=== PATIENT | female | born 1945 | race Caucasian/White ===

== ENCOUNTER 2020-09-12 11:16 | Outpatient (REF) | payer MEDICARE, SELFPAY ==
[2020-09-12 13:27] LABS: Folate 18.4 ng/mL (> or = 4.0)
== END 2020-09-12 11:17 | disposition home or self-care (01) ==
LOC: HO.LNP 11:16
PROVIDERS: PCP Internal Medicine; Visit Provider Internal Medicine
DX: E53.8 Deficiency of other specified B group vitamins (principal)
CPT/HCPCS: 82746

== ENCOUNTER 2020-11-09 10:01 | Outpatient (REF) | payer MEDICARE, SELFPAY ==
[2020-11-09 11:43] LABS: Folate > 20.0 ng/mL (> or = 4.0); Vitamin B12 773 pg/mL (200-900)
== END 2020-11-09 10:02 | disposition home or self-care (01) ==
LOC: HO.LNP 10:01
PROVIDERS: Visit Provider Internal Medicine
DX: G25.0 Essential tremor (principal); E53.8 Deficiency of other specified B group vitamins
CPT/HCPCS: 82607; 82746; 83735

== ENCOUNTER 2021-01-04 13:24 | Outpatient (REF) | payer MEDICARE, SELFPAY ==
--- NOTE | ~2021-01-04 | MM_ITS ---
EXAMINATION: BONE DENSITOMETRY CLINICAL INDICATION: Screening for osteoporosis. COMPARISON: Baseline BD dated 01/14/2019. TECHNIQUE: Using a [employer]box DXA System (software version: 13.1) manufactured by [employer], dual-energy x-ray absorptiometry was performed of the lumbar spine and left hip. The images are of good technical quality. Summary results are attached. FINDINGS: AP SPINE L1-L4: Current: BMD 1.033 g/cm2, Z-score 0.2, T-score -1.2, osteopenia, 11.7% decrease from baseline (<5% change is not significant). Baseline: BMD 1.170 g/cm2. LEFT FEMUR, NECK: Current: BMD 0.775 g/cm2, Z-score -0.2, T-score -1.9, osteopenia. Baseline: BMD 0.902 g/cm2. LEFT FEMUR, TOTAL: Current: BMD 0.874 g/cm2, Z-score 0.4, T-score -1.1, osteopenia, 12.5% decrease from baseline (<5% change is not significant). Baseline: BMD 0.999 g/cm2. IDENTIFIED RISK FACTORS: Early menopause, secondary osteoporosis, height loss, low calcium intake, alcoholism, thiazide, hysterectomy. HISTORY OF FRACTURE: None listed. MEDICATIONS: Vitamin D. MM/XR DEXA axial skeleton IMPRESSION: 1. DIAGNOSIS: Osteopenia based on the lowest T-score value of -1.9 in the femoral neck applying World Health Organization criteria. 2. 10-YEAR FRACTURE RISK PREDICTION, FRAX: Major osteoporotic fracture (clinical spine, forearm, hip or shoulder) 22.8%. Hip fracture 6.1%. 3. Treatment Recommendations: NOF guidelines recommend consideration for treatment in postmenopausal women and men age 50 and older presenting with the following: -A hip or vertebral (clinical or morphometric) fracture. -T-score less than or equal to -2.5 at the femoral neck or spine after appropriate evaluation to exclude secondary causes. -Low bone mass at the hip or spine and a 10-year fracture probability by FRAX of greater than or equal to 3% for hip fracture or greater than or equal to 20% for major osteoporotic fracture based on the [place] adapted WHO algorithm. 4. Other Recommendations: All treatment decisions require clinical judgment and consideration of individual patient factors, including patient preferences, comorbidities, previous drug use, risk factors not captured in the FRAX model (e.g. frailty, falls, vitamin D deficiency, increased bone turnover, interval significant decline in bone density) and possible under or overestimation of fracture risk by FRAX. Additional medical evaluation for secondary cause of low bone mineral density may be appropriate. FUTURE SCAN RECOMMENDATION: People with diagnosed cases of osteoporosis or at high risk for fracture should have regular bone mineral density tests. For patients eligible for Medicare, routine testing is allowed once every 2 years. The testing frequency can be increased to one year for patients who have rapidly progressing disease, those who are receiving or discontinuing medical therapy to restore bone mass, or have additional risk factors.
== END 2021-01-04 13:25 | disposition home or self-care (01) ==
LOC: HO.MAMMO 13:24
PROVIDERS: Visit Provider Internal Medicine
DX: Z13.820 Encounter for screening for osteoporosis (principal); Z78.0 Asymptomatic menopausal state; M85.88 Other specified disorders of bone density and structure, other site; M85.58 Aneurysmal bone cyst, other site; F10.20 Alcohol dependence, uncomplicated; Z90.710 Acquired absence of both cervix and uterus; Z79.899 Other long term (current) drug therapy
CPT/HCPCS: 77080

== ENCOUNTER 2021-02-09 10:26 | Outpatient (REF) | payer MEDICARE, SELFPAY ==
[2021-02-09 11:47] LABS: Folate > 20.0 ng/mL (> or = 4.0); Vitamin B12 1214 pg/mL (200-900)
== END 2021-02-09 10:27 | disposition home or self-care (01) ==
LOC: HO.LNP 10:26
PROVIDERS: Visit Provider Internal Medicine
DX: E53.8 Deficiency of other specified B group vitamins (principal)
CPT/HCPCS: 82607; 82746

== ENCOUNTER 2021-10-23 11:05 | Outpatient (REF) | payer MEDICARE, SELFPAY ==
[2021-10-23 11:08] LABS: MANUAL DIFF FLAG NO
[2021-10-23 11:20] LABS: Appearance Urine CLEAR; Color Urine YELLOW; Glucose Urine UA NEG (NEG); Leukocyte Esterase Urine NEG (NEG); Nitrite Urine NEG (NEG); PH 7.5 (5.0-8.0); Urine Blood NEG (NEG); Urine Ketones NEG (NEG); Urine Protein NEG (NEG-TRACE)
[2021-10-23 11:23] LABS: Basophils Absolute Auto 0.1 X10*3/uL (0.0-0.2); Basophils Percent Auto 1.6 % (0-2); Eosinophils Absolute Auto 0.2 X10*3/uL (0.0-0.4); Eosinophils Percent Auto 6.1 % (0-4); Hematocrit 38.9 % (37.0-47.0); Hemoglobin 13.1 g/dl (12.0-16.0); Lymphocytes Absolute Auto 1.2 X10*3/uL (1.2-4.9); Lymphocytes Percent Auto 32.1 % (20-40); Mean Corpuscular HGB Conc 33.7 g/dl (31.0-35.0); Mean Corpuscular Hemoglobin 32.7 pg (27.0-33.0); Mean Platelet Volume 9.4 fL (9.4-12.3); Monocytes Absolute Auto 0.3 X10*3/uL (0.1-1.2); Monocytes Percent Auto 8.4 % (2-11); Neutrophils Percent Auto 51.8 % (45-73); Platelet Count 222 X10*3/uL (160-400); Red Blood Count 4.01 X10*6/uL (4.20-5.50); White Blood Count 3.8 X10*3/uL (4.8-10.8)
[2021-10-23 11:34] LABS: Alanine Aminotransferase 15 U/L (0-31); Albumin Level 4.3 g/dL (3.5-5.0); Alkaline Phosphatase 93 U/L (39-117); Anion Gap 12 (12-20); Aspartate Amino Transferase 20 U/L (5-31); Bilirubin Total 0.9 mg/dL (0.0-1.0); Blood Urea Nitrogen 12 mg/dL (9-16); Calcium 9.3 mg/dL (8.4-10.2); Carbon Dioxide 31 mmol/L (22-29); Chloride 98 mmol/L (96-108); Cholesterol 185 mg/dL; Estimated Glomerular Filt Rate > 60; Glucose Fasting 100 mg/dL (60-99); HDL Cholesterol 74 mg/dL; LDL Cholesterol Calculated 103 mg/dl; Potassium 4.3 mmol/L (3.3-5.1); Sodium 137 mmol/L (135-145); Total Protein 6.7 g/dL (6.5-8.0); Triglycerides 40 mg/dL
[2021-10-23 11:57] LABS: RBC Urine 0-2 /HPF (0); Squamous Epithelial Cell Urine TRACE /LPF; WBC Urine 0 /HPF (0-4)
== END 2021-10-23 11:06 | disposition home or self-care (01) ==
LOC: HO.LNP 11:05
PROVIDERS: PCP Internal Medicine; Visit Provider Internal Medicine
DX: Z00.00 Encounter for general adult medical examination without abnormal findings (principal); I10 Essential (primary) hypertension; E04.1 Nontoxic single thyroid nodule
CPT/HCPCS: 80053; 80061; 81001; 84443; 85025

== ENCOUNTER 2021-11-01 15:42 | Outpatient (REF) | payer MEDICARE, SELFPAY ==
[2021-11-01 15:48] LABS: MANUAL DIFF FLAG NO
[2021-11-01 15:51] LABS: Basophils Absolute Auto 0.1 X10*3/uL (0.0-0.2); Basophils Percent Auto 0.9 % (0-2); Eosinophils Absolute Auto 0.2 X10*3/uL (0.0-0.4); Eosinophils Percent Auto 3.8 % (0-4); Hematocrit 39.3 % (37.0-47.0); Hemoglobin 12.8 g/dl (12.0-16.0); Imm Gran Abs Auto 0.01 X10*3/uL (0.00-0.03); Imm Gran Pct Auto 0.2 % (0.0-0.4); Lymphocytes Absolute Auto 1.7 X10*3/uL (1.2-4.9); Lymphocytes Percent Auto 30.2 % (20-40); Mean Corpuscular HGB Conc 32.6 g/dl (31.0-35.0); Mean Corpuscular Hemoglobin 31.5 pg (27.0-33.0); Mean Corpuscular Volume 96.8 fL (80.0-98.0); Mean Platelet Volume 9.7 fL (9.4-12.3); Monocytes Absolute Auto 0.4 X10*3/uL (0.1-1.2); Monocytes Percent Auto 7.5 % (2-11); Neutrophils Absolute Auto 3.1 x10*3/uL (2.0-8.3); Neutrophils Percent Auto 57.4 % (45-73); Platelet Count 223 X10*3/uL (160-400); Red Blood Count 4.06 X10*6/uL (4.20-5.50); White Blood Count 5.5 X10*3/uL (4.8-10.8)
[2021-11-01 16:44] LABS: Folate > 20.0 ng/mL (> or = 4.0); Vitamin B12 1442 pg/mL (200-900)
== END 2021-11-01 15:43 | disposition home or self-care (01) ==
LOC: HO.LNP 15:42
PROVIDERS: Visit Provider Internal Medicine
DX: D70.9 Neutropenia, unspecified (principal)
CPT/HCPCS: 82607; 82746; 85025

== ENCOUNTER → 2022-02-26 12:55 | Outpatient (BNVA) | payer MEDICARE, SELFPAY | PROVIDERS: PCP Internal Medicine; Visit Provider Nurse Practitioner Family | DX: R25.1 Tremor, unspecified (principal); R26.9 Unspecified abnormalities of gait and mobility; W19.XXXA Unspecified fall, initial encounter | CPT/HCPCS: 99202 ==

== ENCOUNTER → 2022-09-24 10:58 | Outpatient (BNVA) | payer MEDICARE, SELFPAY | PROVIDERS: PCP Internal Medicine; Visit Provider Psychiatry & Neurology Neurology | DX: G20 Parkinson's disease (principal); R26.9 Unspecified abnormalities of gait and mobility; Z91.81 History of falling | CPT/HCPCS: 99212 ==

== ENCOUNTER 2022-10-29 14:42 | Outpatient (REF) | payer MEDICARE, SELFPAY ==
[2022-10-29 14:45] LABS: MANUAL DIFF FLAG NO
[2022-10-29 15:13] LABS: Appearance Urine Clear; Color Urine Yellow; Glucose Urine UA Negative (Negative); Leukocyte Esterase Urine Negative (Negative); Nitrite Urine Negative (Negative); Urine Blood Negative (Negative); Urine Ketones Negative (Negative); Urine Protein Negative (Neg-Trace)
[2022-10-29 15:17] LABS: Bacteria Urine None Seen (None Seen); Hyaline Casts Urine 0-2 /LPF (0-2); RBC Urine 0-2 /HPF (0-2); Squamous Epithelial Cell Urine 0-2 /HPF (0-2); WBC Urine 0-5 /HPF (0-5)
[2022-10-29 15:20] LABS: Basophils Percent Auto 0.8 % (0-2); Eosinophils Absolute Auto 0.2 X10*3/uL (0.0-0.4); Eosinophils Percent Auto 3.1 % (0-4); Hematocrit 39.2 % (37.0-47.0); Hemoglobin 13.2 g/dl (12.0-16.0); Imm Gran Abs Auto 0.01 X10*3/uL (0.00-0.03); Imm Gran Pct Auto 0.2 % (0.0-0.4); Lymphocytes Absolute Auto 1.6 X10*3/uL (1.2-4.9); Lymphocytes Percent Auto 32.9 % (20-40); Mean Corpuscular HGB Conc 33.7 g/dl (31.0-35.0); Mean Corpuscular Hemoglobin 32.8 pg (27.0-33.0); Mean Corpuscular Volume 97.5 fL (80.0-98.0); Mean Platelet Volume 9.6 fL (9.4-12.3); Monocytes Absolute Auto 0.4 X10*3/uL (0.1-1.2); Monocytes Percent Auto 7.7 % (2-11); Neutrophils Absolute Auto 2.7 x10*3/uL (2.0-8.3); Neutrophils Percent Auto 55.3 % (45-73); Platelet Count 246 X10*3/uL (160-400); Red Blood Count 4.02 X10*6/uL (4.20-5.50); Red Cell Distribution Width 11.9 % (11.0-16.0); White Blood Count 4.8 X10*3/uL (4.8-10.8)
[2022-10-29 15:55] LABS: Alanine Aminotransferase 26 U/L (0-31); Albumin Level 4.1 g/dL (3.5-5.0); Alkaline Phosphatase 92 U/L (39-117); Anion Gap 13 (12-20); Aspartate Amino Transferase 25 U/L (5-31); Blood Urea Nitrogen 14 mg/dL (9-16); Calcium 9.3 mg/dL (8.4-10.2); Carbon Dioxide 31 mmol/L (22-29); Chloride 93 mmol/L (96-108); Cholesterol 179 mg/dL; Estimated Glomerular Filt Rate > 60; Glucose Fasting 97 mg/dL (60-99); HDL Cholesterol 75 mg/dL; LDL Cholesterol Calculated 94 mg/dl; Potassium 4.1 mmol/L (3.3-5.1); Sodium 133 mmol/L (135-145); Total Protein 6.5 g/dL (6.5-8.0); Triglycerides 52 mg/dL
[2022-10-29 16:13] LABS: PSA,Total (Free>4and<10) < 0.10 ng/mL
== END 2022-10-29 14:43 | disposition home or self-care (01) ==
LOC: HO.LNP 14:42
PROVIDERS: Visit Provider Internal Medicine
DX: Z00.00 Encounter for general adult medical examination without abnormal findings (principal); I10 Essential (primary) hypertension; D70.9 Neutropenia, unspecified
CPT/HCPCS: 80053; 80061; 81001; 84153; 85025

== ENCOUNTER 2023-10-06 10:27 | Outpatient (AMB) | payer MEDICARE, SELFPAY ==
--- NOTE | 2023-10-06 10:31 | MHC.OFFVIS ---
Vital Signs 10/06/23 10:33 Height 5 ft 4.5 in Weight 133 lb 4 oz BMI 22.5 BP 148/80 H Blood Pressure Location Rt brachial Position Sitting Respiration 16 Pulse 64 Pulse Source Palpation Intake Visit Reasons: 3m follow up tremor Intake Note: Pt presents for a one year follow up for Parkinson's. 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 No falls sin elast visit. Pt reports that she developed that she has had BUE for some years, very mild such when singing and holding her music. The tremor became more noticeable about 4 yrs, after her passed. She notices a bit of LUE rest tremor, and can also have some shaking in her legs (not sure which leg). She notices the tremor when carrying something, again more so in her LUE. ADL status: Independant Fine-motor skills: Writing and cutting food is ok. Does buttons and zippers ok. Pt reports: Micrographia: No issues Hypophonia: Voice has been hoarser Hyposmia: Never had a good sense of smell Dysphagia: No issues Drooling: Can be during the day or night- not bothersome Orthostatic lightheadedness: No issues Constipation: Sometimes. Does have a remote h/o anal fissures. Tries to take fluids and vegetables. Not using any bowel tx's. Slowness: A little slower- she attributes to age and now living alone Freezing episodes: Never Tremor: as above Stiffness: Some general stiffness Gait changes: A bit slower, can shuffle around the house, may have to pay attention when walking on uneven surfaces such a s a sidewalk Falls: no falls for past 1 year Sleep difficulty: She sleeps ok. Her used to tell her she talked and acted out her dreams in her sleep. Memory impairment: No issues Hallucinations: No Usual exercise: Walks most days. If weather is bad, she will walk in the mall. [facility] Medical History Parkinson's disease without dyskinesia Parkinson's disease Folate deficiency Vitamin B12 deficiency Thyroid nodule GERD (gastroesophageal reflux disease) HTN (hypertension) Neutropenia Surgical History History of tonsillectomy H/O: hysterectomy Family History Mother Pancreatic cancer Father Heart disease Social History Alcohol intake: current Alcohol intake frequency: holidays/special occasions only Patient Tobacco Use Status: Former Tobacco user Physical Exam Vital Signs: Last Vital Signs Pulse 64 10/06/23 10:33 Resp 16 10/06/23 10:33 BP 148/80 H 10/06/23 10:33 BMI result Body Mass Index 22.5 Const General: cooperative and no acute distress Orientation/consciousness: oriented to person, oriented to place and oriented to time Neuro Other: Expression: Milder decreased blink and facial expression Voice: Mild hoarseness Tremor:mild left Ue tremors at rest intermittent Tone: No appreciable tone Dyskinesia: None FFM: Ok Foot taps: Mildly decreased in LLE Finger-nose- BUE intact Gait: Able to stand w/o using arms, right shoulder drooped, decreased arm swing, LUE tremor w/ hand posturing in hand flexion, steps w/ very low floor clearance, multiple steps to turn. Psych: Pleasant affect. General: oriented to person, oriented to place and oriented to time Coordination: [id number] test normal Assessment & Plan Assessment & Plan (1) Parkinson's disease without dyskinesia: Code(s): G20.A1 - Parkinson's disease without dyskinesia, without mention of fluctuations Category: Medical Plan Increase Sinemet 25/100 1 tab tid - discussed about interaction with protein PT for BIG program Orders: Orders PT Evaluation and Treatment Today G20.A1 - Parkinson's disease without dyskinesia, without mention of fluctuations Coding Level of Care Code Est Pt Level 4 (67304) Diagnoses Parkinson's disease without dyskinesia G20.A1
[2023-10-06 10:33] VITALS: BP 148/80; PULSE 64; RESP 16; BMI 22.5
== END 2023-10-06 11:04 | disposition home or self-care (01) ==
PROVIDERS: PCP Internal Medicine; Visit Provider Psychiatry & Neurology Neurology
DX: G20.A1 Parkinson's disease without dyskinesia, without mention of fluctuations (principal)
CPT/HCPCS: 99214

== ENCOUNTER → 2023-10-06 10:27 | Outpatient (BNVA) | payer MEDICARE, SELFPAY | PROVIDERS: Visit Provider Psychiatry & Neurology Neurology | DX: G20.A1 Parkinson's disease without dyskinesia, without mention of fluctuations (principal) | CPT/HCPCS: 99212 ==

== ENCOUNTER 2023-10-31 10:52 | Outpatient (REF) | payer MEDICARE, SELFPAY ==
[2023-10-31 10:54] LABS: MANUAL DIFF FLAG NO
[2023-10-31 11:07] LABS: Basophils Absolute Auto 0.1 X10*3/uL (0.0-0.2); Basophils Percent Auto 1.6 % (0-2); Eosinophils Absolute Auto 0.2 X10*3/uL (0.0-0.4); Eosinophils Percent Auto 3.9 % (0-4); Hematocrit 38.2 % (37.0-47.0); Hemoglobin 13.3 g/dl (12.0-16.0); Imm Gran Abs Auto 0.01 X10*3/uL (0.00-0.03); Imm Gran Pct Auto 0.3 % (0.0-0.4); Lymphocytes Absolute Auto 1.3 X10*3/uL (1.2-4.9); Mean Corpuscular HGB Conc 34.8 g/dl (31.0-35.0); Mean Corpuscular Hemoglobin 33.8 pg (27.0-33.0); Mean Platelet Volume 9.3 fL (9.4-12.3); Monocytes Absolute Auto 0.3 X10*3/uL (0.1-1.2); Monocytes Percent Auto 8.6 % (2-11); Neutrophils Percent Auto 51.6 % (45-73); Platelet Count 218 X10*3/uL (160-400); Red Blood Count 3.94 X10*6/uL (4.20-5.50); Red Cell Distribution Width 11.9 % (11.0-16.0); White Blood Count 3.8 X10*3/uL (4.8-10.8)
[2023-10-31 11:09] LABS: Appearance Urine Clear; Color Urine Yellow; Glucose Urine UA Negative (Negative); Leukocyte Esterase Urine Trace (Negative); Nitrite Urine Negative (Negative); PH 7.5 (5.0-9.0); UMIC TRIGGER UACC YES; Urine Blood Negative (Negative); Urine Ketones Negative (Negative); Urine Protein Negative (Neg-Trace)
[2023-10-31 11:24] LABS: Bacteria Urine None Seen (None Seen); Hyaline Casts Urine 0-2 /LPF (0-2); RBC Urine 0-2 /HPF (0-2); Squamous Epithelial Cell Urine 0-2 /HPF (0-2); WBC Urine 0-5 /HPF (0-5)
[2023-10-31 11:32] LABS: Alanine Aminotransferase 17 U/L (0-31); Albumin Level 4.2 g/dL (3.5-5.0); Alkaline Phosphatase 77 U/L (39-117); Anion Gap 10 (12-20); Aspartate Amino Transferase 17 U/L (5-31); Bilirubin Total 0.8 mg/dL (0.0-1.0); Blood Urea Nitrogen 12 mg/dL (9-16); Calcium 9.5 mg/dL (8.4-10.2); Carbon Dioxide 32 mmol/L (22-29); Chloride 97 mmol/L (96-108); Cholesterol 173 mg/dL (<200); Estimated Glomerular Filt Rate > 60; Glucose Fasting 92 mg/dL (60-99); HDL Cholesterol 76 mg/dL (>40); LDL Cholesterol Calculated 90 mg/dL (<100); Potassium 4.1 mmol/L (3.3-5.1); Sodium 135 mmol/L (135-145); Total Protein 6.7 g/dL (6.5-8.0); Triglycerides 38 mg/dL (<150)
== END 2023-10-31 10:53 | disposition home or self-care (01) ==
LOC: HO.LNP 10:52
PROVIDERS: Visit Provider Internal Medicine
DX: Z00.00 Encounter for general adult medical examination without abnormal findings (principal); I10 Essential (primary) hypertension; D70.9 Neutropenia, unspecified
CPT/HCPCS: 80053; 80061; 81001; 85025

== ENCOUNTER 2023-11-18 09:41 | Outpatient (REF) | payer MEDICARE, SELFPAY ==
--- NOTE | ~2023-11-18 | US_ITS ---
EXAMINATION: US ABDOMEN COMPLETE CLINICAL INFORMATION: Abdominal mass. COMPARISON: None available. TECHNIQUE: Real-time imaging of the abdominal viscera. Limited visualization due to bowel gas. FINDINGS: PANCREAS: Limited visualization of pancreatic tail and head. Imaged portion of pancreatic body is unremarkable. ABDOMINAL AORTA: Atherosclerosis. Limited visualization. Dedicated imaging of the abdominal aorta should be considered for further evaluation. INFERIOR VENA CAVA: Visualized portions are normal. LIVER: Increased hepatic parenchymal heterogeneity and echogenicity could be associated with hepatocellular disease/hepatic steatosis and substantially limits visualization. Correlation with liver function tests and clinical exam recommended to determine further management. GALLBLADDER: No gallstones. No gallbladder wall thickening. COMMON BILE DUCT: Normal in caliber measuring 0.12 cm in diameter. RIGHT KIDNEY: Right renal 2.4 x 1.8 x 2.0 cm mildly complex cyst with thin septation. There is no specific indication for additional imaging at this time. No hydronephrosis or renal calculi. The kidney measures 10.2 cm in maximum dimension. LEFT KIDNEY: No hydronephrosis. No renal calculi. Limited visualization. The kidney measures 11.6 cm in maximum dimension. SPLEEN: Normal. The spleen measures 8.1 cm in maximum dimension. FREE FLUID: None. ADDITIONAL FINDINGS: Targeted ultrasound images were obtained by the patternmaker helper of the area of concern as indicated by the patient in the superior and to right of the umbilicus and demonstrated a 1.9 x 0.8 x 1.8 cm complex hypoechoic mixed cystic/solid mass. No internal vascularity demonstrated. Mildly irregular margins. Radiologist was not in attendance. Images were later provided for interpretation. US/US abdomen complete IMPRESSION: 1. Increased hepatic parenchymal heterogeneity and echogenicity could be associated with hepatocellular disease/hepatic steatosis and substantially limits visualization. Correlation with liver function tests and clinical exam recommended to determine further management. 2. Atherosclerosis. Limited visualization. Dedicated imaging of the abdominal aorta should be considered for further evaluation. 3. A 1.8 cm complex mixed cystic/solid mass in the area of concern indicated by the patient superior and slightly to the right of the umbilicus of indeterminate etiology. CT scan should be considered for further evaluation.
== END 2023-11-18 09:42 | disposition home or self-care (01) ==
LOC: HO.HMGCX 09:41
PROVIDERS: PCP Internal Medicine; Visit Provider Internal Medicine
DX: R19.00 Intra-abdominal and pelvic swelling, mass and lump, unspecified site (principal)
CPT/HCPCS: 76700

== ENCOUNTER 2023-12-19 16:42 | Outpatient (REF) | payer MEDICARE, SELFPAY ==
[2023-12-19 16:59] LABS: Blood Urea Nitrogen 17 mg/dL (9-16); Estimated Glomerular Filt Rate > 60
== END 2023-12-19 16:43 | disposition home or self-care (01) ==
LOC: HO.LNP 16:42
PROVIDERS: Visit Provider Internal Medicine
DX: Z01.812 Encounter for preprocedural laboratory examination (principal)
CPT/HCPCS: 82565; 84520

== ENCOUNTER 2023-12-30 09:50 | Outpatient (AMB) | payer MEDICARE, SELFPAY ==
--- NOTE | 2023-12-30 10:16 | MHC.OFFVIS ---
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 Patient denies numbness and tingling. Denies prior surgeries or injuries to the hands. Patient states she's never had trigger finger injections. Patient reports no pain today. 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 She complains of ~4 months of locking of her middle fingers. She says they lock more intermittently, but at times she is unable to extend her ring fingers without assistance. She says when this occurs she tries to massage her fingers until they relax, which she finds somewhat helpful. She denies any pain today. She denies any numbness, tingling, prior injury, or prior treatment She says she is planning to travel at the end of February for the winter months. She has a hx of Parkinson's disease. [facility] Medical History Parkinson's disease without dyskinesia Parkinson's disease Folate deficiency Vitamin B12 deficiency Thyroid nodule GERD (gastroesophageal reflux disease) HTN (hypertension) Neutropenia Surgical History History of tonsillectomy H/O: hysterectomy Family History Mother Pancreatic cancer Father Heart disease Social History (Updated 12/30/23 @ 10:25 by MARY Ventura) Alcohol intake: current Alcohol intake frequency: holidays/special occasions only Patient Tobacco Use Status: Former Tobacco user Current occupation: rt handed Review of Systems Const All systems reviewed & are unremarkable except as noted in HPI and below Physical Exam Vital Signs: BMI result Body Mass Index 22.9 Const General: cooperative, healthy appearing and no acute distress Orientation/consciousness: patient oriented x3 HEENT Head: Yes normocephalic and Yes atraumatic Eyes EOM: EOMs intact bilaterally Resp Effort & Inspection: normal respiratory effort and able to speak in complete sentences Cardio Jugular venous distension: no JVD Skin General skin exam: turgor normal Rashes: no rashes Neuro General: patient oriented x3 Extrem Other: Evaluation of Bilateral Upper Extremity: The patient is alert, oriented, and in no acute distress Neuro: Median, Ulnar, Radial nerves motor and sensory intact and sensation is normal to the tips of all digits Vascular: Cap refill brisk ROM: She can make a fist and extend all her digits She had no visible locking or catching initially, and was completely nontender over the A1 pulleys of both ring fingers. On further examination she did show me that her left ring finger locked. This was best seen when she went for making a tight fist and then starting to open the hand her ring finger stayed locked with the MCP joint about 45 degrees of flexion and the PIP and about 45 degrees of flexion. Further evaluation showed that what she has is a ruptured radial sagittal band with ulnar subluxation of the extensor tendon to the ring finger at the MCP joint. This occurs bilaterally, and the left bothers her more than the right. Skin: No lacerations or abrasions. General: No Ecchymosis. No Erythema or evidence of infection. Psych Appearance: grossly normal Affect: normal affect Attitude: cooperative Assessment & Plan Assessment & Plan (1) Nontraumatic rupture of sagittal band of extensor tendon of right upper extremity: Code(s): M66.241 - Spontaneous rupture of extensor tendons, right hand Category: Medical (2) Nontraumatic rupture of sagittal band of extensor tendon of left upper extremity: Code(s): M66.242 - Spontaneous rupture of extensor tendons, left hand Category: Medical (3) Parkinson's disease without dyskinesia: Code(s): G20.A1 - Parkinson's disease without dyskinesia, without mention of fluctuations Category: Medical Plan Assessment & Plan: 1. Left ring finger radial sagittal band rupture With extensor tendon subluxation This is her primary complaint today 2. Right ring finger radial sagittal band rupture With extensor tendon subluxation I educated her about this condition I discussed operative and non-operative treatment options The patient would like to proceed with splinting I referred her to OT hand therapy to have a custom thermoplastic finger splint, that prevents full flexion at the MCP joint, made for her I discussed activity modification, she is to wear her splint, like a cast except for showering, hours daily for at least the next 8 weeks She is to avoid making a fist with her left hand for the next 2 months while she wears her splint, in order to allow for potential healing She can follow up prn Scribed for Mandi Paul MD by Paul Wilder, medical records clerk, on 12/30/23 at 10:40 AM, EST. Orders: Orders OT Evaluation and Treatment Today M66.241 - Spontaneous rupture of extensor tendons, right hand, M66.242 - Spontaneous rupture of extensor tendons, left hand Coding Level of Care Code New Pt Level 3 (04780) Diagnoses Nontraumatic rupture of sagittal band of extensor tendon of right upper extremity M66.241 Nontraumatic rupture of sagittal band of extensor tendon of left upper extremity M66.242 Parkinson's disease without dyskinesia G20.A1
[2023-12-30 10:18] VITALS: BMI 22.9
== END 2023-12-30 10:53 | disposition home or self-care (01) ==
PROVIDERS: PCP Internal Medicine; Visit Provider Orthopaedic Surgery
DX: M66.241 Spontaneous rupture of extensor tendons, right hand (principal); M66.242 Spontaneous rupture of extensor tendons, left hand; G20.A1 Parkinson's disease without dyskinesia, without mention of fluctuations
CPT/HCPCS: 99203

== ENCOUNTER → 2023-12-30 09:50 | Outpatient (BNVA) | payer MEDICARE, SELFPAY | PROVIDERS: PCP Internal Medicine; Visit Provider Orthopaedic Surgery | DX: M66.241 Spontaneous rupture of extensor tendons, right hand (principal); M66.242 Spontaneous rupture of extensor tendons, left hand; G20.A1 Parkinson's disease without dyskinesia, without mention of fluctuations | CPT/HCPCS: 99202 ==

== ENCOUNTER 2024-02-24 12:39 | Outpatient (AMB) | payer MEDICARE, SELFPAY ==
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
[2024-02-24 13:01] VITALS: BMI 22.9
== END 2024-02-24 14:01 | disposition home or self-care (01) ==
PROVIDERS: PCP Internal Medicine; Visit Provider Orthopaedic Surgery
DX: M66.241 Spontaneous rupture of extensor tendons, right hand (principal); M66.242 Spontaneous rupture of extensor tendons, left hand; G20.A1 Parkinson's disease without dyskinesia, without mention of fluctuations
CPT/HCPCS: 99213

== ENCOUNTER → 2024-02-24 12:39 | Outpatient (BNVA) | payer MEDICARE, SELFPAY | PROVIDERS: PCP Internal Medicine; Visit Provider Orthopaedic Surgery | DX: M66.241 Spontaneous rupture of extensor tendons, right hand (principal); M66.242 Spontaneous rupture of extensor tendons, left hand; G20.A1 Parkinson's disease without dyskinesia, without mention of fluctuations | CPT/HCPCS: 99212 ==

== ENCOUNTER 2024-02-25 12:53 | Outpatient (AMB) | payer MEDICARE, SELFPAY ==
--- NOTE | 2024-02-25 12:54 | MHC.OFFVIS ---
Vital Signs 02/25/24 12:55 Height 5 ft 4 in Weight 133 lb 4 oz BMI 22.9 Intake Visit Reasons: follow up tremor Intake Note: Patient presents for follow up tremors. patient tremors are about the same and controlled with medication Allergies sulfar Allergy (Severe, Uncoded 02/25/24 12:57) Face swelling HAYFEVER Allergy (Intermediate, Uncoded 02/25/24 12:57) COUGH ITCHY EYES RUNNY NOSE Medication List - Last Reconciled 02/25/24 by Rose Farrell MD atorvastatin 20 mg PO DAILY carbidopa-levodopa 25-100 mg (Sinemet) 1 tab PO TID 90 days cholecalciferol (vitamin D3) 50 mcg PO DAILY folic acid 1 mg PO DAILY tqjtdrgg-ighc-gmr7-C-ana-bosw 500-416.6-20 mg tabs PO PRN mecobalamin (vitamin B12) 2,000 mcg sublingual DAILY multivitamin with minerals (Hair,Skin and Nails tablet) 1 tab PO DAILY propranolol ER 80 mg PO DAILY valsartan-hydrochlorothiazide 160-12.5 mg 1 tab PO DAILY HPI Comments Details: 76-yr-old female comes for follow up of Parkinsons disease. No change since last visit. Initial history-Pt reports that she developed that she has had BUE for some years, very mild such when singing and holding her music. The tremor became more noticeable about 4 yrs, after her passed. She notices a bit of LUE rest tremor, and can also have some shaking in her legs (not sure which leg). She notices the tremor when carrying something, again more so in her LUE. ADL status: Independant Fine-motor skills: Writing and cutting food is ok. Does buttons and zippers ok. Pt reports: Micrographia: No issues Hypophonia: Voice has been hoarser Hyposmia: Never had a good sense of smell Dysphagia: No issues Drooling: Can be during the day or night- not bothersome Orthostatic lightheadedness: No issues Constipation: Sometimes. Does have a remote h/o anal fissures. Tries to take fluids and vegetables. Not using any bowel tx's. Slowness: A little slower- she attributes to age and now living alone Freezing episodes: Never Tremor: as above Stiffness: Some general stiffness Gait changes: A bit slower, can shuffle around the house, may have to pay attention when walking on uneven surfaces such a s a sidewalk Falls: no falls for past 1 year Sleep difficulty: She sleeps ok. Her used to tell her she talked and acted out her dreams in her sleep. Memory impairment: No issues Hallucinations: No Usual exercise: Walks most days. If weather is bad, she will walk in the mall. [facility] Medical History Parkinson's disease without dyskinesia Parkinson's disease Folate deficiency Vitamin B12 deficiency Thyroid nodule GERD (gastroesophageal reflux disease) HTN (hypertension) Neutropenia Surgical History History of tonsillectomy H/O: hysterectomy Family History Mother Pancreatic cancer Father Heart disease Social History Alcohol intake: current Alcohol intake frequency: holidays/special occasions only Patient Tobacco Use Status: Former Tobacco user Current occupation: rt handed Physical Exam Vital Signs: BMI result Body Mass Index 22.9 Const General: cooperative and no acute distress Orientation/consciousness: oriented to person, oriented to place and oriented to time Neuro Other: Expression: Milder decreased blink and facial expression Voice: Mild hoarseness Tremor:mild left Ue tremors at rest intermittent Tone: No appreciable tone Dyskinesia: None FFM: Ok Foot taps: Mildly decreased in LLE Finger-nose- BUE intact Gait: Able to stand w/o using arms, right shoulder drooped, decreased arm swing, LUE tremor w/ hand posturing in hand flexion, steps w/ very low floor clearance, multiple steps to turn. Psych: Pleasant affect. General: oriented to person, oriented to place and oriented to time Coordination: [id number] test normal Assessment & Plan Assessment & Plan (1) Parkinson's disease without dyskinesia: Code(s): G20.A1 - Parkinson's disease without dyskinesia, without mention of fluctuations Category: Medical Qualifiers: Fluctuating manifestations: without fluctuating manifestations Qualified Code(s): G20.A1 - Parkinson's disease without dyskinesia, without mention of fluctuations Plan Continue Sinemet 25/100 1 tab tid - discussed about interaction with protein PT for BIG program Orders: Orders PT Evaluation and Treatment Today G20 - Parkinson's disease Coding Level of Care Code Est Pt Level 4 (74223) Complex EM visit Add On G2211 Diagnoses Parkinson's disease without dyskinesia or fluctuating manifestations G20.A1 Fluctuating manifestations: without fluctuating manifestations
[2024-02-25 12:55] VITALS: BMI 22.9
== END 2024-02-25 13:28 | disposition home or self-care (01) ==
PROVIDERS: PCP Internal Medicine; Visit Provider Psychiatry & Neurology Neurology
DX: G20.A1 Parkinson's disease without dyskinesia, without mention of fluctuations (principal)
CPT/HCPCS: 99214; G2211

== ENCOUNTER → 2024-02-25 12:53 | Outpatient (BNVA) | payer MEDICARE, SELFPAY | PROVIDERS: PCP Internal Medicine; Visit Provider Psychiatry & Neurology Neurology | DX: G20.A1 Parkinson's disease without dyskinesia, without mention of fluctuations (principal) | CPT/HCPCS: 99212 ==

== ENCOUNTER 2024-02-26 11:21 | Outpatient (REF) | payer MEDICARE, SELFPAY ==
[2024-02-26 12:17] LABS: Alanine Aminotransferase 19 U/L (0-31); Albumin Level 4.3 g/dL (3.5-5.0); Alkaline Phosphatase 85 U/L (39-117); Aspartate Amino Transferase 24 U/L (5-31); Bilirubin Direct 0.4 mg/dL (0.0-0.5); Bilirubin Total 0.9 mg/dL (0.0-1.0); Cholesterol 119 mg/dL (<200); HDL Cholesterol 61 mg/dL (>40); LDL Cholesterol Calculated 53 mg/dL (<100); Total Protein 6.7 g/dL (6.5-8.0); Triglycerides 26 mg/dL (<150)
[2024-02-26 12:53] LABS: Reflex LDLD? No
== END 2024-02-26 11:22 | disposition home or self-care (01) ==
LOC: HO.LNP 11:21
PROVIDERS: Visit Provider Internal Medicine
DX: I70.0 Atherosclerosis of aorta (principal)
CPT/HCPCS: 80061; 80076

== ENCOUNTER 2024-03-03 10:30 | Outpatient (RCR) | payer MEDICARE, SELFPAY ==
--- NOTE | 2024-01-14 11:57 | MHC.OT.EP ---
[address] [phone] Occupational Therapy Plan of Care Patient Name: Pankaj Fernandes Date of Evaluation: 01/14/24 Diagnosis: B/L D4 radial sagittal band rupture Pain Location: Pain free at rest Sharp/annoying pain w/ gripping Pain Score: 2 Pain Scale Used: Numeric (0 - 10) Aggravating Factors: Gripping Assessment: 78 yo female was seen by Dr Paul at [facility] for locking of B/L ring fingers, thought to be trigger fingers, but found to have ruptured radial sagittal band with ulnar subluxation of the extensor tendon to the ring finger at the MCP joint. Pt with complaint of left worse than right. She has been referred to OT for conservative management and splinting to prevent MCP flex and subluxation of tendon. On assessment today, she does not demo subluxation, but range is assessed submaximally and deferred gross grasp at this time. She reports minimal pain and functional loss and I anticipate she will do well w/ splinting to limit extensor tendon subluxation. She has been fit w/ custom MCP block orthoses and recommend wearing >8 weeks, although she reports return to [place] mid February and may need to find new local ortho specialist at that time. Frequency and Duration: The patient will be seen 1x/wk for 2 weeks Short Term Goals: Pt to report comfort w/ orthosis wear Ind w/ orthosis management for hygiene Nursing Home Goals: same as above Treatment Plan: Therapeutic Exercise Therapeutic Activity Home Exercise Program Splinting Patient Education ADL Training Splinting >8 weeks per MD Electronically Signed By: Emiliana Paulino OTR/L CHT Please Sign and return to therapist. Thank you once again for your referral.
== END 2024-04-07 09:30 | disposition home or self-care (01) ==
LOC: HO.OT 10:30
PROVIDERS: PCP Internal Medicine; Visit Provider Orthopaedic Surgery
DX: M66.242 Spontaneous rupture of extensor tendons, left hand (principal); M66.241 Spontaneous rupture of extensor tendons, right hand
CPT/HCPCS: 29130; 97165; 97760

== ENCOUNTER 2024-03-05 10:04 | Outpatient (REF) | payer MEDICARE, SELFPAY ==
--- NOTE | ~2024-03-05 | MM_ITS ---
EXAMINATION: MM SCREENING DIGITAL BREAST TOMOSYNTHESIS, BILATERAL CLINICAL INFORMATION: Screening. Asymptomatic. COMPARISON: Mammography: Comparison is made with available priors TECHNIQUE: Digital breast mammography with tomosynthesis is performed in both the craniocaudal and mediolateral oblique views along with computer-aided detection (CAD). FINDINGS: There are scattered areas of fibroglandular density (ACR BI-RADS breast composition Category b). There are no significant masses, abnormal calcifications, or other abnormalities. MM/MM tomosynthesis screening BI IMPRESSION: No mammographic evidence of malignancy. ASSESSMENT: BI-RADS BI-RADS 1 - Negative RECOMMENDATION: Routine annual mammography screening. 1 year F/U This examination should not preclude the clinical evaluation of a suspicious palpable abnormality. This patient's information was entered into a reminder system with a target due date for their next mammogram. Electronically signed by: Santa Mccauley DO 03/16/2024 02:46 PM EDT
== END 2024-03-05 10:05 | disposition home or self-care (01) ==
LOC: HO.MAMMO 10:04
PROVIDERS: PCP Internal Medicine; Visit Provider Internal Medicine
DX: Z12.31 Encounter for screening mammogram for malignant neoplasm of breast (principal)
CPT/HCPCS: 77063; 77067

== ENCOUNTER → 2024-03-05 10:30 | Outpatient (BNV) | payer MEDICARE, SELFPAY | PROVIDERS: PCP Internal Medicine; Visit Provider Internal Medicine | DX: Z12.31 Encounter for screening mammogram for malignant neoplasm of breast (principal) | CPT/HCPCS: 77063; 77067 ==

== ENCOUNTER 2024-03-23 11:16 | Outpatient (AMB) | payer MEDICARE, SELFPAY ==
--- NOTE | 2024-03-23 11:31 | MHC.OFFVIS ---
Vital Signs 03/23/24 11:32 Height 5 ft 4 in Weight 133 lb 4 oz BMI 22.9 Intake Visit Reasons: OV- B/L Ring finger Sagital band Intake Note: Pankaj is a 78 yo right hand dominant female who presents today for a follow up evaluation of bilateral ring finger radial sagittal band rupture. Patient reports she continues to wear the splints. She has been experiencing sporadic pain on her ring fingers. Allergies sulfar Allergy (Severe, Uncoded 03/23/24 11:36) Face swelling HAYFEVER Allergy (Intermediate, Uncoded 03/23/24 11:36) COUGH ITCHY EYES RUNNY NOSE HPI HPI OV- B/L Ring finger Sagital band: Details: Pankaj is a 78 year old right hand dominant woman who returns to discuss her bilateral ring finger radial sagittal band injuries. Splinting began 01/14/2024. She says she has been wearing her custom finger splints daily as instructed. She says she has removed her splint at times for brief periods, but says she has been avoiding making a fist and denies feeling any snapping sensation in her fingers. She denies any numbness, tingling, prior injury, or prior treatment She has a hx of Parkinson's disease. [facility] Medical History Parkinson's disease without dyskinesia Parkinson's disease Folate deficiency Vitamin B12 deficiency Thyroid nodule GERD (gastroesophageal reflux disease) HTN (hypertension) Neutropenia Surgical History History of tonsillectomy H/O: hysterectomy Family History Mother Pancreatic cancer Father Heart disease Social History Alcohol intake: current Alcohol intake frequency: holidays/special occasions only Patient Tobacco Use Status: Former Tobacco user Current occupation: rt handed Physical Exam Vital Signs: BMI result Body Mass Index 22.9 Extrem Other: Evaluation of Bilateral Upper Extremity: The patient is alert, oriented, and in no acute distress Neuro: Median, Ulnar, Radial nerves motor and sensory intact and sensation is normal to the tips of all digits Vascular: Cap refill brisk ROM: She has the custom splints on bilateral ring fingers extending into the palms. Whens he makes a fist with her splints in place, she can flex her ring finger MCP joints to ~45 degrees without any tendon subluxation bilaterally. Her ring finger ROM was assessed after removing her splints No Subluxation of the EDC tendon when bringing her Right ring fingertip down to touch her palm in a weak fist No Subluxation of the EDC tendon when bringing her Left ring fingertip down to touch her palm in a weak fist This is all a significant improvement from where we started. She has no stiffness in her other fingers Assessment & Plan Assessment & Plan (1) Nontraumatic rupture of sagittal band of extensor tendon of right upper extremity: Code(s): M66.241 - Spontaneous rupture of extensor tendons, right hand Category: Medical (2) Nontraumatic rupture of sagittal band of extensor tendon of left upper extremity: Code(s): M66.242 - Spontaneous rupture of extensor tendons, left hand Category: Medical (3) Parkinson's disease without dyskinesia: Code(s): G20.A1 - Parkinson's disease without dyskinesia, without mention of fluctuations Category: Medical Qualifiers: Fluctuating manifestations: without fluctuating manifestations Qualified Code(s): G20.A1 - Parkinson's disease without dyskinesia, without mention of fluctuations Plan Assessment & Plan: 1. Left ring finger radial sagittal band rupture With extensor tendon subluxation This is her primary complaint today 2. Right ring finger radial sagittal band rupture With extensor tendon subluxation I educated her about this condition We have been treating this non operatively with custom thermoplastic splints made by our OT hand therapists that prevent flexion of the ring finger MCP joints beyond 45 degrees. Again treatment began on 01/14/2024, and she appears to be doing very well with no subluxation now on either hand when she brings her fingers to a weak fist.. She will now allow her to begin to remove her splints to work on gentle finger ROM exercises. She can make a gentle fist but is to avoid making a tight or strong fist. She should still be wearing her splints for most hours of the day, including when sleeping, to avoid inadvertently making a tight fist. She will discontinue her finger splints in 1 month and resume all normal activities at that time. I let her know to keep the finger splints in a drawer. If she again develops subluxation of the tendons we would likely re-treat in this manner the for a longer period of time. If she continues to have subluxation she will continue to wear her finger splint for another 1-2 months Scribed for Mandi Paul MD by Paul Wilder, medical record librarians teacher, on 03/23/24 at 11:55 AM, EST. Coding Level of Care Code Est Pt Level 3 (02110) Diagnoses Nontraumatic rupture of sagittal band of extensor tendon of right upper extremity M66.241 Nontraumatic rupture of sagittal band of extensor tendon of left upper extremity M66.242 Parkinson's disease without dyskinesia or fluctuating manifestations G20.A1 Fluctuating manifestations: without fluctuating manifestations
[2024-03-23 11:32] VITALS: BMI 22.9
== END 2024-03-23 12:09 | disposition home or self-care (01) ==
LOC: HO.HOS 11:16
PROVIDERS: PCP Internal Medicine; Visit Provider Orthopaedic Surgery
DX: M66.241 Spontaneous rupture of extensor tendons, right hand (principal); M66.242 Spontaneous rupture of extensor tendons, left hand; G20.A1 Parkinson's disease without dyskinesia, without mention of fluctuations
CPT/HCPCS: 99213

== ENCOUNTER → 2024-03-23 11:16 | Outpatient (BNVA) | payer MEDICARE, SELFPAY | PROVIDERS: PCP Internal Medicine; Visit Provider Orthopaedic Surgery | DX: M66.241 Spontaneous rupture of extensor tendons, right hand (principal); M66.242 Spontaneous rupture of extensor tendons, left hand; G20.A1 Parkinson's disease without dyskinesia, without mention of fluctuations | CPT/HCPCS: 99212 ==

== ENCOUNTER → 2024-05-24 17:29 | Outpatient (BNV) | payer MEDICARE, SELFPAY | PROVIDERS: PCP Internal Medicine; Visit Provider Radiology Diagnostic Radiology | DX: S19.9XXA Unspecified injury of neck, initial encounter (principal); S09.90XA Unspecified injury of head, initial encounter; S82.002A Unspecified fracture of left patella, initial encounter for closed fracture | CPT/HCPCS: 70450; 70486; 72125; 73564 ==

== ENCOUNTER 2024-05-28 10:18 | Outpatient (AMB) | payer MEDICARE, SELFPAY ==
--- NOTE | 2024-05-28 10:23 | MHC.OFFVIS ---
Intake Visit Reasons: FC- LT knee patellar sleeve fx DOI 05/24/24 Intake Note: Pankaj is a 79 year old female who presents today for an ER follow up of left knee patellar sleeve fracture, DOI 05/24/24. Patient reports that she had a fall however she is unsure how she fell. States abrasions on both knees and her hands as well as bruising on her face. She noticed the following day that her left ankle started to swell. Currently her pain is located above her knee cap. She was prescribed ibuprofen from [facility] however she never picked up, stating her pain has been tolerable. Allergies sulfar Allergy (Severe, Uncoded 05/28/24 10:28) Face swelling HAYFEVER Allergy (Intermediate, Uncoded 05/28/24 10:28) COUGH ITCHY EYES RUNNY NOSE Medication List - Last Reconciled 05/28/24 by Darwin Palacios PA-C atorvastatin 20 mg PO DAILY carbidopa-levodopa 25-100 mg (Sinemet) 1 tab PO TID 90 days cholecalciferol (vitamin D3) 50 mcg PO DAILY folic acid 1 mg PO DAILY qbmihnyy-ityu-mop7-C-ana-bosw 500-416.6-20 mg tabs PO PRN ibuprofen 600 mg PO Q8-10H PRN mecobalamin (vitamin B12) 2,000 mcg sublingual DAILY propranolol ER 80 mg PO DAILY valsartan-hydrochlorothiazide 160-12.5 mg 1 tab PO DAILY HPI HPI FC- LT knee patellar sleeve fx DOI 05/24/24: Details: 79-year-old female presents to the office today for an injury she sustained to her left knee. Date of injury is 05/24/2024, she states she fell and landed on her knee. She is unsure how she fell. She was seen in the emergency department x-rays obtained where she had a nondisplaced patellar fracture. She was placed in an immobilizer and referred to our office for ortho eval. [facility] Medical History Parkinson's disease without dyskinesia Parkinson's disease Folate deficiency Vitamin B12 deficiency Thyroid nodule GERD (gastroesophageal reflux disease) HTN (hypertension) Neutropenia Surgical History History of tonsillectomy H/O: hysterectomy Family History Mother Pancreatic cancer Father Heart disease Social History Alcohol intake: current Alcohol intake frequency: holidays/special occasions only Patient Tobacco Use Status: Former Tobacco user Current occupation: rt handed Review of Systems Const All systems reviewed & are unremarkable except as noted in HPI and below Physical Exam Const General: cooperative and no acute distress Orientation/consciousness: patient oriented x3 Resp Effort & Inspection: normal respiratory effort and able to speak in complete sentences Cardio Peripheral pulses: Peripheral pulses 2+ throughout Neuro General: patient oriented x3 Extrem Other: Left knee normal to inspection. She does have an abrasion over the kneecap. She can fully extend the knee. She can flex to about 45 degrees. No significant tenderness to palpation. Calf supple and nontender neurovascularly intact. Office Procedures AMB Fracture Care Fracture Billing Code: Fracture Billing Code Results Reviewed Results Reviewed: X-rays of her left knee obtained in the emergency department on 05/24 show a nondisplaced patellar fracture Assessment & Plan Assessment & Plan (1) Left patella fracture: Code(s): S82.002A - Unspecified fracture of left patella, initial encounter for closed fracture Category: Medical Plan: She will discontinue the use of the immobilizer. She was placed in a hinged knee brace for support. I encouraged her to avoid hyperflexion. She can weightbear as tolerated. Sleep with the brace on. She should use the walker with ambulation for support. I would like to see her back in 2 weeks with x-rays sooner if needed. Coding Level of Care Code New Pt Level 3 (06797) Complex EM visit Add On G2211 Diagnoses Left patella fracture S82.002A CPT Codes Fracture Care - Fracture Billing Code: Fracture Billing Code ([id number])
--- OUTSIDE RECORDS SUMMARY | 2024-05-28 10:35 | XMS_ITS ---
Author Organization Austin Hughes MD Address [address] [place] [phone] Care Team Providers Care Fence Laborer Name Role Phone Austin Hughes Primary Care Provider REASON FOR VISIT ER Encounters Encounter Location Date Provider Diagnosis Austin Hughes MD [address] [facility] [address] [place] [phone] 05/27/2024 Austin Hughes PLAN OF TREATMENT Next Appt Details Provider Name:Austin shipley, 11/05/2024 07:15:00 AM, [address] [place] [address], [address], [phone], Provider Name:Austin shipley, 11/11/2024 09:30:00 AM, [address] [place] [address], [address], [phone],
--- OUTSIDE RECORDS SUMMARY | 2024-05-28 10:35 | XMS_ITS ---
Author Organization Austin Hughes MD Address [address] [place], [place] [phone] Care Team Providers Care Injection Specialist Name Role Phone Austin Hughes Primary Care Provider RESULTS Component Value Reference Range Notes Liver Panel Reviewed date:02/26/2024 01:26:41 PM Interpretation: Performing Lab:[facility], [address] [place] [phone] Notes/Report: Bilirubin Total 0.9 0.0-1.0 mg/dL Bilirubin Direct 0.4 0.0-0.5 mg/dL Aspartate Amino Transferase 24 5-31 U/L Alanine Aminotransferase 19 0-31 U/L Total Protein 6.7 6.5-8.0 g/dL Albumin Level 4.3 3.5-5.0 g/dL Alkaline Phosphatase 85 39-117 U/L Lipid Panel with Reflex Reviewed date:02/26/2024 01:27:05 PM Interpretation: Performing Lab:[facility], [address] [place] [phone] Notes/Report: Triglycerides 26 <150 mg/dL Desirable Triglyceride: [...] FOR VISIT LIVER PANEL, FASTING LIPID PANEL IMMUNIZATIONS Vaccine Route Administration Date Status Comme nts Influenza High Dose IM Intramuscular 02/26/2024 Administer ed Encounters Encounter Location Date Provider Diagnosis Austin Hughes MD [address] [place] [address] [place] [phone] 02/26/2024 Austin Hughes Aortic atheroscleros is I70.0 and Encounter for immunization Z23 ASSESSMENTS Encounter Date Diagnosis Assessment Notes Treatment Notes Treatment Clinical Notes 02/26/2024 Aortic atheroscleros is (ICD-10 - I70.0) 02/26/2024 Encounter for immunization (ICD-10 - Z23) PLAN OF TREATMENT Next Appt Details Provider Name:Austin shipley, 11/05/2024 07:15:00 AM, [address] [place] [address], Suite [facility], [place], [place], [phone], Provider Name:Austin shipley, 11/11/2024 09:30:00 AM, [address] [place] [address], Suite [facility], [place], [place], [phone],
--- OUTSIDE RECORDS SUMMARY | 2024-05-28 10:36 | XMS_ITS ---
Author Organization Austin Hughes MD Address [address] [place] [phone] Care Team Providers Care Fitter Hand Name Role Phone Austin Hughes Primary Care Provider REASON FOR VISIT QUESTION Encounters Encounter Location Date Provider Diagnosis Austin Hughes MD [address] [facility] [address] [place] [phone] 01/22/2024 Austin Hughes PLAN OF TREATMENT Next Appt Details Provider Name:Austin shipley, 11/05/2024 07:15:00 AM, [address] [place] [address], [address], [phone], Provider Name:Austin shipley, 11/11/2024 09:30:00 AM, [address] [place] [address], [address], [phone],
--- OUTSIDE RECORDS SUMMARY | 2024-05-28 10:36 | XMS_ITS | Patient Health Record ---
Author Organization Austin Hughes MD Address [address] [place], [place] [id number] Care Team Providers Care Chief Architect Name Role Phone Austin Hughes Primary Care Provider [phone] ALLERGIES Allergen (clinical drug ingredient) Drug/Non Drug Allergy documented on EMR Reaction Allergy Type Onset Date Status Sulfathiazole swelling o f face Drug Allergy Active Ammonium Lactate swelling Drug Allergy Active sumycinGI Upset (uncoded) GI Upset Allergy Active RESULTS Component Value Reference Range Notes Complete Blood Count Auto Di ff Reviewed date:10/31/2023 03:34:21 PM Interpretation: Performing Lab:[facility], [address] [place] [phone] Notes/Report: White Blood Count 3.8 4.8-10.8 X10*3/uL Red Blood Count 3.94 4.20-5.50 X10*6/uL Hemoglobin 13.3 12.0-16.0 g/dl Hematocrit 38.2 37.0-47.0 % Mean Corpuscular Volume 97.0 80.0-98.0 fL Mean Corpuscular Hemoglobin 33.8 27.0-33.0 pg Mean Corpuscular HGB Conc 34.8 31.0-35.0 g/dl Red Cell Distribution Width 11.9 11.0-16.0 % Platelet Count 218 160-400 X10*3/uL Mean Platelet Volume 9.3 9.4-12.3 fL Neutrophils Percent Auto 51.6 45-73 % Imm Gran Pct Auto 0.3 0.0-0.4 % Lymphocytes Percent Auto 34.0 20-40 % Monocytes Percent Auto 8.6 2-11 % Eosinophils Percent Auto 3.9 0-4 % Basophils Percent Auto 1.6 0-2 % NRBC Pct Auto 0.0 0.0-0.2 /100WBC Neutrophils Absolute Auto 2.0 2.0-8.3 x10*3/u L Imm Gran Abs Auto 0.01 0.00-0.03 X10*3/uL Lymphocytes Absolute Auto 1.3 1.2-4.9 X10*3/u L Monocytes Absolute Auto 0.3 0.1-1.2 X10*3/uL Eosinophils Absolute Auto 0.2 0.0-0.4 X10*3/u L Basophils Absolute Auto 0.1 0.0-0.2 X10*3/uL NRBC Abs Auto 0.000 0.0-0.012 X10*3/uL Comprehensive [place]. Panel Fa st Reviewed date:10/31/2023 03:33:57 PM Interpretation: Performing Lab:[facility], [address] [place] [phone] Notes/Report: Sodium 135 135-145 mmol/L Potassium 4.1 3.3-5.1 mmol/L Chloride 97 96-108 mmol/L Carbon Dioxide 32 22-29 mmol/L Anion Gap 10 12-20 Blood Urea Nitrogen 12 9-16 mg/dL Creatinine 0.67 0.5-1.4 mg/dL Estimated Glomerular Filt Rate > 60 NOTE: For -Armenian individuals, multiply the result by 1.210. Chronic Kidney Disease: Estimated GFR < 60 mL/min/1.73m2 Severe Kidney Disease: Estimated GFR < 15 mL/min/1.73m2 Glucose Fasting 92 60-99 mg/dL Calcium 9.5 8.4-10.2 mg/dL Bilirubin Total 0.8 0.0-1.0 mg/dL Aspartate Amino Transferase 17 5-31 U/L Alanine Aminotransferase 17 0-31 U/L Total Protein 6.7 6.5-8.0 g/dL Albumin Level 4.2 3.5-5.0 g/dL Alkaline Phosphatase 77 39-117 U/L Lipid Panel Reviewed date:10/31/2023 12:30:19 PM Interpretation: Performing Lab:[facility], [address] [place] [phone] Notes/Report: Triglycerides 38 <150 mg/dL Desirable Triglyceride: less than 150 mg/dL Borderline High Triglyceride 150-199 mg/dL High Triglyceride: 200-499 mg/dL Very High Triglyceride: greater than or equal to 5OO mg/dL Cholesterol 173 <200 mg/dL Desirable Cholesterol: less than 200 mg/dL Borderline High Cholesterol: 200-239 mg/dL High Cholesterol: greater than 239 mg/dL LDL Cholesterol Calculated 90 <100 mg/dL Desirable LDL: less than 100 mg/dL Near Optimal/Above Optimal LDL: 110-129 mg/dL Borderline High LDL: 130-159 mg/dL High LDL: 160-189 mg/dL Very High LDL: greater than or equal to 190 mg/dL HDL Cholesterol 76 >40 mg/dL Desirable HDL: greater than 40 mg/dL Note: This HDL assay may give artificially low results in patients with liver disease. UA ClnCatch+Micro w/rflx Cul t Reviewed date:10/31/2023 03:34:45 PM Interpretation: Performing Lab:[facility], [address] [place] [phone] Notes/Report: Urine, Clean Catch Color Urine Yellow Appearance Urine Clear PH 7.5 5.0-9.0 Glucose Urine UA Negative Negative mg/dL Urine Blood Negative Negative Specific [place] - Urine 1.010 1.005-1.025 Urine Protein Negative Neg-Trace mg/dL Urine Ketones Negative Negative mg/dL Nitrite Urine Negative Negative Leukocyte Esterase Urine Trace Negative RBC Urine 0-2 0-2 /HPF WBC Urine 0-5 0-5 /HPF Squamous Epithelial Cell Urine 0-2 0-2 /HPF Bacteria Urine None Seen None Seen Hyaline Casts Urine 0-2 0-2 /LPF Occult Blood, Stool, Guaiac Reviewed date:11/07/2023 11:59:57 AM Interpretation:Negative Performing Lab: Notes/Report: Negative Occult Blood, Stool, Guaiac Neg US abdomen complete Reviewed date:12/18/2023 07:30:37 AM Interpretation: Performing Lab: Notes/Report: [facility] [place] [address] Ultrasound Report Signed Patient: Pankaj Fernandes MR#: [id number] 875 : 1945 Acct:[id number] Age/Sex: 78 / F ADM Date: 11/18/23 Loc: HO.HMGCX Attending Dr: Austin Hughes MD Ordering Physician: Austin Hughes MD Date of Service: 11/18/23 Procedure(s): US abdomen complete Accession Number(s): [id number] cc: Austin Hughes MD EXAMINATION: US ABDOMEN COMPLETE CLINICAL INFORMATION: Abdominal mass. COMPARISON: None available. TECHNIQUE: Real-time imaging of the abdominal viscera. Limited visualization due to bowel gas. FINDINGS: PANCREAS: Limited visualization of pancreatic tail and head. Imaged portion of pancreatic body is unremarkable. ABDOMINAL AORTA: Atherosclerosis. Limited visualization. Dedicated imaging of the abdominal aorta should be considered for further evaluation. INFERIOR VENA CAVA: Visualized portions are normal. LIVER: Increased hepatic parenchymal heterogeneity and echogenicity could be associated with hepatocellular disease/hepatic steatosis and substantially limits visualization. Correlation with liver function tests and clinical exam recommended to determine further management. GALLBLADDER: No gallstones. No gallbladder wall thickening. COMMON BILE DUCT: Normal in caliber measuring 0.12 cm in diameter. RIGHT KIDNEY: Right renal 2.4 x 1.8 x 2.0 cm mildly complex cyst with thin septation. There is no specific indication for additional imaging at this time. No hydronephrosis or renal calculi. The kidney measures 10.2 cm in maximum dimension. LEFT KIDNEY: No hydronephrosis. No renal calculi. Limited visualization. The kidney measures 11.6 cm in maximum dimension. SPLEEN: Normal. The spleen measures 8.1 cm in maximum dimension. FREE FLUID: None. ADDITIONAL FINDINGS: Targeted ultrasound images were obtained by the associate program manager of the area of concern as indicated by the patient in the superior and to right of the umbilicus and demonstrated a 1.9 x 0.8 x 1.8 cm complex hypoechoic mixed cystic/solid mass. No internal vascularity demonstrated. Mildly irregular margins. Radiologist was not in attendance. Images were later provided for interpretation. US/US abdomen complete IMPRESSION: 1. Increased hepatic parenchymal heterogeneity and echogenicity could be associated with hepatocellular disease/hepatic steatosis and substantially limits visualization. Correlation with liver function tests and clinical exam recommended to determine further management. 2. Atherosclerosis. Limited visualization. Dedicated imaging of the abdominal aorta should be considered for further evaluation. 3. A 1.8 cm complex mixed cystic/solid mass in the area of concern indicated by the patient superior and slightly to the right of the umbilicus of indeterminate etiology. CT scan should be considered for further evaluation. Dictated By: Ester Caruso MD Signed By: <Electronically signed by Ester Caruso MD in OV> 12/16/23 1408 DD/ 1010 TD/TT: International Marketing Executive: NATALY Reviewed date:01/23/2024 01:07:54 PM Interpretation:Negative Performing Lab: Notes/Report: Negative Result Blood Urea Nitrogen Reviewed date:12/21/2023 09:35:44 AM Interpretation: Performing Lab:[facility], [address] [place] [phone] Notes/Report: Blood Urea Nitrogen 17 9-16 mg/dL Creatinine Reviewed date:12/21/2023 09:35:35 AM Interpretation: Performing Lab:[facility], [address] [place] [phone] Notes/Report: Creatinine 0.70 0.5-1.4 mg/dL Estimated Glomerular Filt Rate > 60 NOTE: For -Armenian individuals, multiply the result by 1.210. Chronic Kidney Disease: Estimated GFR < 60 mL/min/1.73m2 Severe Kidney Disease: Estimated GFR < 15 mL/min/1.73m2 Hold Gold Reviewed date:02/26/2024 01:26:49 PM Interpretation: Performing Lab:[facility], [address] [place] [phone] Notes/Report: Hold Gold See Note Specimen held untested for 24 hours; Call to request Chemistry testing. Liver Panel Reviewed date:02/26/2024 01:26:41 PM Interpretation: Performing Lab:[facility], [address] [place] [phone] Notes/Report: Bilirubin Total 0.9 0.0-1.0 mg/dL Bilirubin Direct 0.4 0.0-0.5 mg/dL Aspartate Amino Transferase 24 5-31 U/L Alanine Aminotransferase 19 0-31 U/L Total Protein 6.7 6.5-8.0 g/dL Albumin Level 4.3 3.5-5.0 g/dL Alkaline Phosphatase 85 39-117 U/L Lipid Panel with Reflex Reviewed date:02/26/2024 01:27:05 PM Interpretation: Performing Lab:[facility], [address] [place] [phone] Notes/Report: Triglycerides 26 <150 mg/dL Desirable Triglyceride: [...] low results in patients with liver disease. MM tomosynthesis screening B I Reviewed date:03/19/2024 12:00:21 PM Interpretation: Performing Lab: Notes/Report: [facility] [address] [place] [address] Mammography Report Signed with Virgie Patient: Pankaj Fernandes MR#: [id number] 875 : 1945 Acct:[id number] Age/Sex: 78 / F ADM Date: 03/05/24 Loc: BILLY Attending Dr: Austin Hughes MD Ordering Physician: Austin Hughes MD Results: 1Ne gative Date of Service: 03/05/24 Follow Up: 1 Year From Orig [facility] Mammogram Procedure(s): MM tomosynthesis screening BI Accession Number(s): [id number] cc: Austin Hughes MD ADDENDUM ADDENDUM #1 ADDENDUM: Due to a software issue related to the original report, this case has been reviewed again and the original findings and recommendations remain the same. OVERALL ASSESSMENT: BI-RADS 1 - Negative RECOMMENDATION: 1 year F/U Electronically signed by: Santa Mccauley DO 03/19/2024 10:25 AM EDT RP Addendum Dictated By: Santa Mccauley DO Addendum Signed By: <Electronically signed by Santa Mccauley DO in OV> 03/19/24 1025 Addendum Cosigned By: DD/ TD/TT: 03/05/24 EXAMINATION: MM SCREENING DIGITAL BREAST TOMOSYNTHESIS, BILATERAL CLINICAL INFORMATION: Screening. Asymptomatic. COMPARISON: Mammography: Comparison is made with available priors TECHNIQUE: Digital breast mammography with tomosynthesis is performed in both the craniocaudal and mediolateral oblique views along with computer-aided detection (CAD). FINDINGS: There are scattered areas of fibroglandular density (ACR BI-RADS breast composition Category b). There are no significant masses, abnormal calcifications, or other abnormalities. MM/MM tomosynthesis screening BI IMPRESSION: No mammographic evidence of malignancy. ASSESSMENT: BI-RADS BI-RADS 1 - Negative RECOMMENDATION: Routine annual mammography screening. 1 year F/U This examination should not preclude the clinical evaluation of a suspicious palpable abnormality. This patient's information was entered into a reminder system with a target due date for their next mammogram. Electronically signed by: Santa Mccauley DO 03/16/2024 02:46 PM EDT RP Dictated By: Santa Mccauley DO Signed By: <Electronically signed by Santa Mccauley DO in OV> 03/16/24 1446 DD/ 1012 TD/TT: 03/05/24 1028 International Marketing Executive: CT cervical spine wo con Reviewed date:05/25/2024 12:45:13 PM Interpretation: Performing Lab: Notes/Report: [address] [address] [address] Scan Report Signed Patient: Pankaj Fernandes MR#: [id number] 875 : 1945 Acct:[id number] Age/Sex: 79 / F ADM Date: 05/24/24 Loc: HO.ED Attending Dr: Ordering Physician: Bradley Bynum Date of Service: 05/24/24 Procedure(s): CT cervical spine wo IV con Accession Number(s): [id number] cc: Bradley Bynum; Austin Hughes MD Report Number: [id number]: Total DLP = 1190.00 mGy-cm CLINICAL HISTORY: Fall CT cervical spine without contrast Comparison: None Findings: Normal vertebral body alignment. Multilevel disc space narrowing and endplate osteophyte formation, as well as facet hypertrophy. No acute fractures or dislocations. Visualized intracranial contents are unremarkable. Soft tissues of the neck are normal. No consolidation or effusion at the lung apices. IMPRESSION: No acute findings. This document has been electronically signed by: Kayla George MD on 05/24/2024 18:56:27 Dictated By: Kayla George MD Signed By: <Electronically signed by Kayla George MD in OV> 05/24/241857 DD/ 55 TD/TT: 05/24/24 185 International Marketing Executive: CT head/brain wo con Reviewed date:05/25/2024 12:51:33 PM Interpretation: Performing Lab: Notes/Report: [address] [address] [address] Scan Report Signed Patient: Pankaj Fernandes MR#: [id number] 875 : 1945 Acct:[id number] Age/Sex: 79 / F ADM Date: 05/24/24 Loc: HO.ED Attending Dr: Ordering Physician: Bradley Bynum Date of Service: 05/24/24 Procedure(s): CT head/brain wo IV con Accession Number(s): [id number] cc: Bradley Bynum; Austin Hughes MD Report Number: [id number]: Total DLP = 1190.00 mGy-cm CLINICAL HISTORY: Fall CT head without contrast Comparison: None Findings: No intra-axial mass, midline shift, hydrocephalus, or acute hemorrhage. Mild diffuse cerebral volume loss. Mild degree of patchy low-density within the periventricular and subcortical white matter. There is no sinus or mastoid fluid. The orbits are unremarkable. No skull fracture. IMPRESSION: 1. No acute intracranial findings This document has been electronically signed by: Kayla George MD on 05/24/2024 18:56:11 Dictated By: Kayla George MD Signed By: <Electronically signed by Kayla George MD in OV> 05/24/241856 DD/ 55 TD/TT: 05/24/241855 International Marketing Executive: CT facial bones wo con Reviewed date:05/25/2024 12:50:26 PM Interpretation: Performing Lab: Notes/Report: [address] [address] [address] Scan Report Signed Patient: Pankaj Fernandes MR#: [id number] 875 : 1945 Acct:[id number] Age/Sex: 79 / F ADM Date: 05/24/24 Loc: HO.ED Attending Dr: Ordering Physician: Bradley Bynum Date of Service: 05/24/24 Procedure(s): CT facial bones wo IV con Accession Number(s): [id number] cc: Bradley Bynum; Austin Hughes MD Report Number: [id number]: Total DLP = 1190.00 mGy-cm CLINICAL HISTORY: fall CT maxillofacial without contrast Comparison: None Findings: No acute fractures. Temporomandibular joints are intact. Paranasal sinuses and mastoid air cells clear. Orbital contents within normal limits. Visualized intracranial contents are within normal limits. No foreign bodies. IMPRESSION: Unremarkable maxillofacial CT. This document has been electronically signed by: Kayla George MD on 05/24/2024 18:56:20 Dictated By: Kayla George MD Signed By: <Electronically signed by Kayla George MD in OV> 05/24/241856 DD/ 55 TD/TT: 05/24/241855 International Marketing Executive: XR knee LT 4V Reviewed date:05/25/2024 12:52:40 PM Interpretation: Performing Lab: Notes/Report: [address] [address] XRay Report Signed Patient: Pankaj Fernandes MR#: [id number] 875 : 1945 Acct:[id number] Age/Sex: 79 / F ADM Date: 05/24/24 Loc: .ED Attending Dr: Ordering Physician: Bradley Bynum Date of Service: 05/24/24 Procedure(s): XR knee LT 4V Accession Number(s): [id number] cc: Bradley Bynum; Austin Hughes MD CLINICAL HISTORY: fall. fracture? 4 view left knee Comparison: None Findings: Linear lucency traverses the mid patella. No significant arthritic change or erosions. Small knee joint effusion. No radiopaque foreign body. IMPRESSION: Patellar fracture. This document has been electronically signed by: Kayla George MD on 05/24/2024 18:29:00 Dictated By: Kayla George MD Signed By: <Electronically signed by Kayla George MD in OV> 05/24/24 183 DD/ 28 TD/TT: 05/24/241828 International Marketing Executive: REASON FOR REFERRAL Reason trigger finger on kel th hand ringer fingers Diagnosis 1 Trigger finger, unsp ecified finger (M65.30) Referral Organization Austin Hughes MD Referring Provider First Name Austin Referring Provider Last Name Ellen Referring Provider Speciality Internal M edicine Referred Provider Mandi Paul Referred Provider Specialty Hand Surgery General Notes Brianna Sanchez 02:36:47 PM EDT > info faxed Laura Annette 11/27/2023 10:03:29 AM EDT > info faxed Laura Annette 11/27/2023 02:21:47 PM EDT > not able to leave a message info mailed to patient Referral Priority Routine Referral Appointment Date 12/30/2023 MEDICATIONS Medication SIG (Take, Route, Frequency, Duration) Notes Start Date End Date Status Carbidopa-Levodopa 25-100 MG 1 tablet as needed Orally Three times a day Active Propranolol HCl ER 80 mg TAKE 1 CAPSULE DAILY Active Atorvastatin Calcium 20 MG 1 tablet Orally Once a day for 90 days 12/19/2023 Active Valsartan-hydroCHLOROthia zide 160-12.5 mg TAKE 1 TABLET DAILY Acti ve Vitamin C 500 MG Orally Not -Taking Genny Allergy 180MG TAKE 1 TABLET DAILY Not-Taking Vitamin B12 1000 MCG 1 tablet Orally Onc e a day for 30 day(s) Active Flonase 50 MCG/ACT 1 spray in each nost ril Nasally Once a day for 30 day(s) Not-Taking Folic Acid 1 mg TAKE 1 TABLET DAILY Active Glucosamine Chond Complex/MSM Orally Not-Taking Vitamin D3 2000 UNIT 1 capsule Orally On ce a day Not-Taking clonazePAM 0.5 MG 0.5 tablet at bedtim e Orally Once a day Not-Taking IMMUNIZATIONS Vaccine Route Administration Date Status Comme nts Flu Vaccine IM Intramuscular 02/12/2011 Administered Flu Vaccine IM Intramuscular 02/05/2012 Administered [facility] Shingles IM Intramuscular 02/16/2013 Administered Flu Vaccine IM Intramuscular 02/08/2013 Administered [facility] [place] PPSV23 (Pnemovax) IM Intramuscular 02/25/2013 Administered Fluarix Quadrivalent IM Intramuscular 02/08/2014 Administe red Flu Vaccine Unknown 02/15/2015 Administered [facility] in [facility] Fluarix Quadrivalent IM Intramuscular 02/19/2016 Administe red PPSV23 (Pnemovax) IM Intramuscular 04/04/2016 Administered pt was given the vaccine at the [facility] pharmacy in [facility]. Prevnar 13 IM Intramuscular 12/09/2017 Administered TDaP IM Intramuscular 12/30/2017 Administered pt was given the vaccine at [facility] in [place]. Influenza High Dose IM Intramuscular 03/04/2018 Administer ed pt was given the vaccine at [facility] in [place]. Influenza High Dose IM Intramuscular 02/22/2019 Administer ed Influenza High Dose Unknown 02/18/2020 Administered Bradley rida Shingrix Unknown 05/15/2020 Administered Lot [id number]) EXP 06-30-21 [facility]IS 03-17-19[facility] [place] Covid Vaccine Unknown 07/07/2020 Administered Moderna Covid Vaccine Unknown 08/04/2020 Administered Moderna Influenza High Dose IM Intramuscular 02/09/2021 Administer ed SARS-COV-2 Moderna Unknown 11/08/2021 Administered Influenza High Dose IM Intramuscular 02/26/2024 Administer ed Flu Vaccine Unknown 02/08/2014 Pending Shingrix Unknown 03/06/2020 Pending Patient had it in [place] SOCIAL HISTORY Tobacco Use: Social History Observation Description Date Details (start date - stop date) Former Smoker NA - NA Sex Assigned At : Social History Observation Description Sex Assigned At Unknown Tobacco Use/Smoking Question Answer Notes Patient is a former smoker How long has it been since y ou last smoked? > 10 years Additional Findings: Tobacco Non-User Fo rmer smoker, currently using no form of tobacco Alcohol Screen Question Answer Notes Did you have a drink contain ing alcohol in the past year? Yes How often did you have a dri nk containing alcohol in the past year? 4 or more times a week (4 points) How many drinks did you have on a typical day when you were drinking in the past year? 1 or 2 drinks (0 point) How often did you have 6 or more drinks on one occasion in the past year? Never (0 point) Points 4 Interpretation Positive PROBLEMS Problem Type ICD Code Onset Dates Problem Status W/U Status Risk SNOMED Code Notes Problem Thyroid nodule (E04.1) Active confirmed Thyroid nodule (698887233) Problem Neutropenia (D70.9) Active confirmed Ne utropenia (087251577) Problem Essential tremor (G25.0) Active confirmed 544583778 Problem Gastroesophageal reflux disease without esophagitis (K21.9) Active confirmed 019874942 Problem Essential hypertension (I10) Active confirmed 66802895 Problem Environmental allergies (Z91.09) Active confirmed 856888974 Problem Parkinson disease (G20) Active confirmed Parkinson disease (43170604) Problem Falls frequently (R29.6) Active confirmed Recurrent falls (098634138) Problem Osteopenia of spine (M85.88) Active confirmed 184007836 Problem H/O: hysterectomy (Z90.710) Active confirmed 559780856 Problem Aortic atherosclerosis (I70.0) Active confirmed 05648598 VITAL SIGNS Blood pressure diastolic 74 mm Hg 01/22/2024 omer ght is down 2 pounds since 12-19-23 Height 65 in 01/22/2024 weight is down 2 pounds since 12-19-23 Blood pressure systolic 132 mm Hg 01/22/2024 omerg ht is down 2 pounds since 12-19-23 Weight 131 lbs 01/22/2024 weight is down 2 pounds since 12-19-23 BMI 21.80 kg/m2 01/22/2024 weight is down 2 pounds since 12-19-23 Encounters Encounter Location Date Provider Diagnosis Austin Hughes MD [address] [place] [id number] 11/07/2023 Austin Hughes Essential hypertensi on I10 ; Annual physical exam Z00.00 ; Parkinson disease G20 ; Palpable abdominal mass R19.00 ; Encounter for screening for malignant neoplasm of colon Z12.11 ; Encounter for screening for malignant neoplasm of rectum Z12.12 ; Depression screening Z13.31 and Parkinson disease, symptomatic G20.A1 Austin Hughes MD [address] [place] [id number] 01/22/2024 Austin Hughes Ventral hernia witho ut obstruction or gangrene K43.9 Austin Hughes MD [address] [place] [id number] 10/31/2023 Austin Hughes Blood tests for rout ine general physical examination Z00.00 ; Essential hypertension I10 and Neutropenia D70.9 Austin Hughes MD [address] [place] [id number] 02/26/2024 Austin Hughes Aortic atheroscleros is I70.0 and Encounter for immunization Z23 Austin Hughes MD [address] [place] [id number] 12/19/2023 Austin Hughes Abdominal wall mass R22.2 ; Aortic atherosclerosis I70.0 and Pre-procedural laboratory examinations Z01.812 Austin Hughes MD [address] [place] [id number] 12/19/2023 Austin Hughes MD [address] [place] [id number] 01/22/2024 Austin Hughes MD [address] [place] [id number] 05/27/2024 Austin Hughes ASSESSMENTS Encounter Date Diagnosis Assessment Notes Treatment Notes Treatment Clinical Notes 11/07/2023 Annual physical exam (ICD-10 - Z00.00) labs reviewed and discussed with patient 11/07/2023 Essential hypertension (ICD-10 - I10) well controlled, will continue current regiment 01/22/2024 Ventral hernia without obstruction or gangrene (ICD-10 - K43.9) discussed the fndings of recent CT scan with patient, discussed the risk of hernias and obstruction and the need for potential emergency surgery. she is going to elect to observe, Total time spent on the date of the encounter is 35 minutes including both face to face time spent and time spent reviewing documentation, studies and counseling the patient. 10/31/2023 Essential hypertension (ICD-10 - I10) 10/31/2023 Blood tests for routine general physical examination (ICD-10 - Z00.00) 02/26/2024 Encounter for immunization (ICD-10 - Z23) 02/26/2024 Aortic atherosclerosis (ICD-10 - I70.0) 12/19/2023 Aortic atherosclerosis (ICD-10 - I70.0) patient verbalized understanding of medication and directions for use 12/19/2023 Abdominal wall mass (ICD-10 - R22.2) pending diagnostic testing, THE ORDER HAS BEEN FAXED TO [facility] , PATIENT AWARE . BUN , CREATININE RESULTS PENDING 11/07/2023 Parkinson disease (ICD-10 - G20) doing well on meds, will continue current regiment 10/31/2023 Neutropenia (ICD-10 - D70.9) 11/07/2023 Palpable abdominal mass (ICD-10 - R19.00) seems most likely stool. / order faxed to [facility], pending diagnostic testing 11/07/2023 Encounter for screening for malignant neoplasm of colon (ICD-10 - Z12.11) order faxed to [facility] 12/19/2023 Pre-procedural laboratory examinations (ICD-10 - Z01.812) labs ordered prior to diagnostic testing 11/07/2023 Encounter for screening for malignant neoplasm of rectum (ICD-10 - Z12.12) guaiac negative 11/07/2023 Depression screening (ICD-10 - Z13.31) 11/07/2023 Parkinson disease, symptomatic (ICD-10 - G20.A1) PLAN OF TREATMENT Pending Test Test Name Order Date Electrocardiogram (EKG) 02/13/2017 Electrocardiogram (EKG) 02/13/2018 MAMMOGRAM DIGITAL BILATERAL SCREEN 04/08 US ABD 11/07/2023 CT abdomen pelvis wo/w con 12/19/2023 MM screening mammo BI 03/23/2021 MM diagnostic mammo BI 03/22/2021 Future Test Test Name Order Date BONE DENSITY DEXA 01/03/2021 Next Appt Details Provider Name:Austinjo Winslow ier, 11/05/2024 07:15:00 AM, [address] [place] [address], [address], [place], [place], [phone], Provider Name:Austin Boogie Tacosamanda ier, 11/11/2024 09:30:00 AM, [address] [facility], [address], [place], [place], [phone], Insurance Providers Payer Name Payer Address Payer Phone Subscriber Number Group Number Insured Name Patient Relationship to Insured Coverage Start Date Coverage End Date [facility] are [employer] [address] [address] [place] [address] [id number] Pankaj Fernandes Self - patient is the insured MEDICARE NHIC THANH [address] [place] [address] [id number] Pankaj Fernandes Self - patient is the insured 2 MEDICATIONS ADMINISTERED Medication Instructions Date of Administration Dosage Notes B12 09/07/2020 1 cm3 Patient eben t own Vitamin B12, I just administered MEDICAL (GENERAL) HISTORY Medical History History ICD Code colonoscopy 09/2009 - due in 10 years HX of hysterectomy Thyroid nodule E04.1 thyroid nodule followed and no change in 2 years and benign no need to follow Surgical History Surgery Date(Month/Year) partial hysterectomy
== END 2024-05-28 11:52 | disposition home or self-care (01) ==
PROVIDERS: PCP Internal Medicine; Visit Provider Physician Assistant
DX: S82.002A Unspecified fracture of left patella, initial encounter for closed fracture (principal)
CPT/HCPCS: 27520; 99203; G2211

== ENCOUNTER → 2024-05-28 10:18 | Outpatient (BNVA) | payer MEDICARE, SELFPAY | PROVIDERS: PCP Internal Medicine; Visit Provider Physician Assistant | DX: S82.002A Unspecified fracture of left patella, initial encounter for closed fracture (principal) | CPT/HCPCS: 27520; 99202 ==

== ENCOUNTER 2024-06-09 11:19 | Outpatient (AMB) | payer MEDICARE, SELFPAY ==
--- NOTE | 2024-06-09 11:34 | MHC.OFFVIS ---
Intake Visit Reasons: OV- LT knee patellar sleeve fx DOI 05/24/24 Intake Note: Pankaj is a 79 year old female who presents today for a follow up of left knee patellar sleeve fracture, DOI 05/24/24. X-rays updated. Patient reports she is doing well, states her discomfort feels better with brace off due to the brace rubbing and falling down. State she has been walking around her house with no brace. She has mild pain located at the lateral aspect of ankle/foot and swelling at the end of the day. Finds some relief with ice and elevation. Allergies sulfar Allergy (Severe, Uncoded 06/09/24 11:42) Face swelling HAYFEVER Allergy (Intermediate, Uncoded 06/09/24 11:42) COUGH ITCHY EYES RUNNY NOSE Medication List - Last Reconciled 06/09/24 by Darwin Palacios PA-C atorvastatin 20 mg PO DAILY carbidopa-levodopa 25-100 mg (Sinemet) 1 tab PO TID 90 days cholecalciferol (vitamin D3) 50 mcg PO DAILY folic acid 1 mg PO DAILY pwomawpu-rxis-fer8-C-ana-bosw 500-416.6-20 mg tabs PO PRN ibuprofen 800 mg PO Q8H PRN 30 days mecobalamin (vitamin B12) 2,000 mcg sublingual DAILY propranolol ER 80 mg PO DAILY valsartan-hydrochlorothiazide 160-12.5 mg 1 tab PO DAILY HPI HPI OV- LT knee patellar sleeve fx DOI 05/24/24: Details: 79-year-old female returns to the office today for a left knee patella fracture date of injury 05/24/2024. She continues to use the brace at times and states she is feeling better. Minimal pain. She does notice some swelling in the left ankle. [facility] Medical History Parkinson's disease without dyskinesia Parkinson's disease Folate deficiency Vitamin B12 deficiency Thyroid nodule GERD (gastroesophageal reflux disease) HTN (hypertension) Neutropenia Surgical History History of tonsillectomy H/O: hysterectomy Family History Mother Pancreatic cancer Father Heart disease Social History Alcohol intake: current Alcohol intake frequency: holidays/special occasions only Patient Tobacco Use Status: Former Tobacco user Current occupation: rt handed Review of Systems Const All systems reviewed & are unremarkable except as noted in HPI and below Physical Exam Const General: cooperative and no acute distress Orientation/consciousness: patient oriented x3 Resp Effort & Inspection: normal respiratory effort and able to speak in complete sentences Cardio Peripheral pulses: Peripheral pulses 2+ throughout Neuro General: patient oriented x3 Extrem Other: Left knee normal to inspection. She does have an abrasion over the kneecap which is healing. She can fully extend the knee. She can flex to about 90 degrees. No significant tenderness to palpation. Calf supple and nontender neurovascularly intact. Results Reviewed Results Reviewed: Xrays were obtained in the office today and personally reviewed by me of the left knee which show stable patella fracture. Xrays were obtained in the office today and personally reviewed by me of the left ankle are negative for any acute or chronic abnormalities. Assessment & Plan Assessment & Plan (1) Left patella fracture: Code(s): S82.002A - Unspecified fracture of left patella, initial encounter for closed fracture Category: Medical (2) Left ankle swelling: Code(s): M25.472 - Effusion, left ankle Category: Medical Plan She will continue with the knee sleeve when ambulating and in crowds. She can begin increase activity as tolerated with a cane. She is going on vacation and I recommend using the brace with activities and I sent her a prescription for ibuprofen 800 mg t.i.d. to take for the next 2 weeks to help with her swelling in the ankle. I do not see any fractures on x-rays however she may have likely sprained it when she fell. I will see her back in 6 weeks with x-rays of the left knee sooner if needed. Orders: Orders XR ankle LT min 3V Today M25.572 - Pain in left ankle and joints of left foot XR knee LT 2V Today M25.562 - Pain in left knee Medications: Changed From ibuprofen 600 mg PO Q8-10H PRN 30 tabs 0RF fever or pain To ibuprofen 800 mg PO Q8H PRN 90 tabs 1RF fever or pain 30 days Coding Level of Care Code Global (36445) Diagnoses Left patella fracture S82.002A Left ankle swelling M25.472
== END 2024-06-09 11:57 | disposition home or self-care (01) ==
PROVIDERS: PCP Internal Medicine; Visit Provider Physician Assistant
DX: S82.002A Unspecified fracture of left patella, initial encounter for closed fracture (principal); M25.472 Effusion, left ankle
CPT/HCPCS: 99024

== ENCOUNTER 2024-06-09 11:31 | Outpatient (REF) | payer MEDICARE, SELFPAY ==
--- NOTE | ~2024-06-09 | XR_ITS ---
CLINICAL HISTORY: M25.562 - Pain in left knee 2 view left knee Comparison: CR - XR KNEE LT 4V - 05/24/24 18:06 EST Findings: Transverse lucency within midportion of the patella on the lateral view is reidentified. No other evidence of fracture. No significant osteoarthritis. Superior and inferior patellar enthesophytes. Slightly decreased knee joint effusion. IMPRESSION: 1. Reidentified nondisplaced transverse patellar fracture. 2. Slightly improved knee joint effusion/hemarthrosis. This document has been electronically signed by: Wallace Alford DO on 06/10/2024 13:04:05
--- NOTE | ~2024-06-09 | XR_ITS ---
CLINICAL HISTORY: M25.572 - Pain in left ankle and joints of left foot 3 view left ankle Comparison: None Findings: No acute fracture. No dislocation. Small calcaneal enthesophytes. No significant loss of joint space, osteophytes, or erosions. No ankle effusion. Diffuse demineralization. Diffuse soft tissue prominence may represent swelling versus body habitus. Lower leg calcifications likely vascular in nature. IMPRESSION: 1. No acute osseous findings. This document has been electronically signed by: Summer Witt MD on 06/09/2024 18:26:10
--- OUTSIDE RECORDS SUMMARY | 2024-06-09 13:17 | XMS_ITS ---
Author Organization Austin Hughes MD Address [address] [place] [phone] Care Team Providers Care Healthcare Project Manager Name Role Phone Austin Hughes Primary Care Provider [phone] REASON FOR VISIT ER Encounters Encounter Location Date Provider Diagnosis Austin Hughes MD 10 [facility] [address] [place] [phone] 05/30/2024 Austin Hughes PLAN OF TREATMENT Next Appt Details Provider Name:Austin shipley, 11/05/2024 07:15:00 AM, [address] [place] [address], [address], [phone], Provider Name:Austin shipley, 11/11/2024 09:30:00 AM, [address] [place] [address], [address], [phone],
--- OUTSIDE RECORDS SUMMARY | 2024-06-09 13:17 | XMS_ITS ---
Author Organization Austin Hughes MD Address [address] [place], [place] [phone] Care Team Providers Care Psychologist Industrial Organizational Name Role Phone Austin Hughes Primary Care Provider RESULTS Component Value Reference Range Notes Liver Panel Reviewed date:02/26/2024 01:26:41 PM Interpretation: Performing Lab:[facility], [address] [place] [phone] Notes/Report: Bilirubin Total 0.9 0.0-1.0 mg/dL Bilirubin Direct 0.4 0.0-0.5 mg/dL Aspartate Amino Transferase 24 5-31 U/L Alanine Aminotransferase 19 0-31 U/L Total Protein 6.7 6.5-8.0 g/dL Albumin Level 4.3 3.5-5.0 g/dL Alkaline Phosphatase 85 39-117 U/L Lipid Panel with Reflex Reviewed date:02/26/2024 01:27:05 PM Interpretation: Performing Lab:[facility], [address] [place] [phone] Notes/Report: Triglycerides 26 <150 mg/dL Desirable Triglyceride: [...] Location Date Provider Diagnosis Austin Hughes MD [address] [place] [address] [place] [phone] 02/26/2024 Austin Hughes Aortic atheroscleros is I70.0 and Encounter for immunization Z23 ASSESSMENTS Encounter Date Diagnosis Assessment Notes Treatment Notes Treatment Clinical Notes 02/26/2024 Aortic atheroscleros is (ICD-10 - I70.0) 02/26/2024 Encounter for immunization (ICD-10 - Z23) PLAN OF TREATMENT Next Appt Details Provider Name:Austin shipley, 11/05/2024 07:15:00 AM, [address] [place] [address], Suite [facility], [place], [place], [phone], Provider Name:Austin shipley, 11/11/2024 09:30:00 AM, [address] [place] [address], Suite [facility], [place], [place], [phone],
--- OUTSIDE RECORDS SUMMARY | 2024-06-09 13:17 | XMS_ITS ---
Author Organization Austin Hughes MD Address [address] [place] [phone] Care Team Providers Care Lot Porter Name Role Phone Austin Hughes Primary Care Provider [phone] REASON FOR VISIT ER Encounters Encounter Location Date Provider Diagnosis Austin Hughes MD [address] [facility] [address] [place] [phone] 05/27/2024 Austin Hughes PLAN OF TREATMENT Next Appt Details Provider Name:Austin shipley, 11/05/2024 07:15:00 AM, [address] [place] [address], [address], [phone], Provider Name:Austin shipley, 11/11/2024 09:30:00 AM, [address] [place] [address], [address], [phone],
--- OUTSIDE RECORDS SUMMARY | 2024-06-09 13:18 | XMS_ITS | Clinical Summary ---
Author Organization [facility] Facility Address [address] [address] Care Team Providers Care Senior Engineering Technician Name Role Phone Austin Hughes MD Primary Care Provider Social History Tobacco Use Types Packs/Day Years Used Date Smoking Tobacco: Never Assessed Comments Unknown Sex and Gender Information Value Date Recorded Sex Assigned at Not on file Legal Sex Female 8:05 AM EDT Gender Identity Not on file Sexual Orientation Not on file Plan of Treatment Health Maintenance Due Date Last Done Comments Pneumococcal Vaccine: 65+ Ye ars (1 of 1 - PCV) 2012 Influenza Vaccine (#1) 2024 Hepatitis B Vaccine Aged Out No longe r eligible based on patient's age to complete this topic Insurance TARIK King22 [facility] [id number] [facility] Care Teams Senior Engineering Technician Relationship Specialty Start Date End Date Austin Hughes MD [address] [place] [address] [id number] [place], [place] PCP - General Internal Medicine 11/13/21
== END 2024-06-09 11:32 | disposition home or self-care (01) ==
LOC: HO.HOSX 11:31
PROVIDERS: Visit Provider Physician Assistant
DX: S82.035D Nondisplaced transverse fracture of left patella, subsequent encounter for closed fracture with routine healing (principal); M25.562 Pain in left knee; M25.572 Pain in left ankle and joints of left foot
CPT/HCPCS: 73560; 73610; 99212

== ENCOUNTER → 2024-06-09 11:32 | Outpatient (BNV) | payer MEDICARE, SELFPAY | PROVIDERS: Visit Provider Specialist | DX: S82.035A Nondisplaced transverse fracture of left patella, initial encounter for closed fracture (principal) | CPT/HCPCS: 73560 ==

== ENCOUNTER 2024-07-21 08:17 | Outpatient (REF) | payer MEDICARE, SELFPAY ==
--- NOTE | ~2024-07-21 | XR_ITS ---
EXAMINATION: XR KNEE 1-2 VIEWS LEFT HISTORY: M25.562 - Pain in left knee COMPARISON: Comparison is made with the prior examination dated 06/09/2024. FINDINGS: AP and lateral views of the left knee are submitted. The bones are osteopenic. Again seen is a nondisplaced transverse fracture of the patella. The fracture line remains visible. The joint spaces are preserved. The soft tissues are unremarkable. XR/XR knee LT 2V IMPRESSION: Osteopenia. Nondisplaced transverse fracture of the patella without change. Electronically signed by: Julio Cesar Brock MD 07/23/2024 02:58 PM EST
--- OUTSIDE RECORDS SUMMARY | 2024-07-21 08:42 | XMS_ITS ---
Author Organization Austin Hughes MD Address [address] [place], [place] [phone] Care Team Providers Care Manager Ui Name Role Phone Austin Hughes Primary Care Provider REASON FOR VISIT RF Propranalol 80mg Medications Medication SIG (Take, Route, Frequency, Duration) Notes Start Date End Date Status Propranolol HCl ER 80 mg TAKE 1 CAPSULE DAILY oral once a day for 90 days Active Encounters Encounter Location Date Provider Diagnosis Austin Hughes MD [address] [place], [place] [phone] 07/06/2024 Austin Hughes Essential hypertension I10 Assessments Encounter Date Diagnosis (ICD Code) Assessment Notes Treatment Notes Treatment Clinical Notes Section Notes 07/06/2024 Essential hypertension (ICD-10 - I10) Plan Of Treatment Medication Medication Name Sig Start Date Stop Date Notes Propranolol HCl ER 80 mg TAKE 1 CAPSULE DAILY oral once a day for 90 days Next Appt Details Provider Name:Austin Winslow ier, 11/05/2024 07:15:00 AM, [address], [address], [place], [place], [phone], Provider Name:Austin Winslow ier, 11/11/2024 09:30:00 AM, [address], [address], [place], [phone], Progress Notes * Pankaj FERNANDES FDOB:[birth year] (79 yo F)Acc No.[id number]:07/06/2024 Patient:?Pankaj FERNANDES :1945???Age:79 Y???Sex:Female Address:[address] [place] [address] * Refills? Refill Propranolol HCl ER Capsule Extended Release 24 Hour, 80 mg, oral, 90, TAKE 1 CAPSULE DAILY, once a day, 90 days, Refills=3 * true * Date:? Generated for Bird ann/Samia/eTransmitting on:?07/21/2024 08:41 AM EST
--- OUTSIDE RECORDS SUMMARY | 2024-07-21 08:42 | XMS_ITS | Clinical Summary ---
Author Organization [facility] Facility Address [address] [address] Care Team Providers Care Director E Learning Name Role Phone Austin Hughes MD Primary Care Provider [phone] Social History Tobacco Use Types Packs/Day Years [...] to complete this topic Insurance TARIK King22 [place] [id number] [facility] Care Teams Director E Learning Relationship Specialty Start Date End Date Austin Hughes MD [address] [place] [address] [address] [place], [place] PCP - General Internal Medicine 11/13/21
--- OUTSIDE RECORDS SUMMARY | 2024-07-21 08:42 | XMS_ITS ---
Author Organization Austin Hughes MD Address [address] [place] [phone] Care Team Providers Care Durability Technician Name Role Phone Austin Hughes Primary Care Provider REASON FOR VISIT RF Valsartan Medications Medication SIG (Take, Route, Frequency, Duration) Notes Start Date End Date Status Valsartan-hydroCHLOROthiaz lisette 160-12.5 mg TAKE 1 TABLET DAILY oral once a day for 90 days Active Encounters Encounter Location Date Provider Diagnosis Austin Hguhes MD [address] [place] [phone] 07/12/2024 Austin Hughes Plan Of Treatment Medication Medication Name Sig Start Date Stop Date Notes Valsartan-hydroCHLOROthiazid e 160-12.5 mg TAKE 1 TABLET DAILY oral once a day for 90 days Next Appt Details Provider Name:Austin Winslow ier, 11/05/2024 07:15:00 AM, [address], [address], [place], [place], [phone], Provider Name:Austin shipley, 11/11/2024 09:30:00 AM, [address], [address], [place], [phone], Progress Notes * Pankaj FERNANDES FDOB:[birth year] (79 yo F)Acc No.[id number]:07/12/2024 Patient:?Pankaj FERNANDES :1945???Age:79 Y???Sex:Female Address:[address] [place] [address] TARIK Loo [address] * Refills? Refill Valsartan-hydroCHLOROthiazide Tablet, 160-12.5 mg, oral, 90, TAKE 1 TABLET DAILY, once a day, 90 days, Refills=3 * true * Date:? Generated for Bird ann/Samia/eTransmitting on:?07/21/2024 08:41 AM EST
== END 2024-07-21 08:18 | disposition home or self-care (01) ==
LOC: HO.HOSX 08:17
PROVIDERS: Visit Provider Physician Assistant
DX: M25.562 Pain in left knee (principal); S82.035D Nondisplaced transverse fracture of left patella, subsequent encounter for closed fracture with routine healing
CPT/HCPCS: 73560; 99212

== ENCOUNTER 2024-07-21 11:08 | Outpatient (AMB) | payer MEDICARE, SELFPAY ==
--- NOTE | 2024-07-21 11:28 | A.OFFVIS_ITS ---
Intake Visit Reasons: OV-f/u lt knee patella fx-xr Intake Note: Pankaj is a 79 year old female who presents today for a follow up of left knee patellar sleeve fracture, DOI 05/24/24. X-rays updated. Patient reports she is doing well, states a little tweak every once in a while. She has no concerns today. Allergies sulfar Allergy (Severe, Uncoded 07/21/24 11:34) Face swelling HAYFEVER Allergy (Intermediate, Uncoded 07/21/24 11:34) COUGH ITCHY EYES RUNNY NOSE Medication List - Last Reconciled 07/21/24 by Darwin Palacios PA-C atorvastatin 20 mg PO DAILY carbidopa-levodopa 25-100 mg (Sinemet) 1 tab PO TID 90 days cholecalciferol (vitamin D3) 50 mcg PO DAILY folic acid 1 mg PO DAILY ztnkyaza-lixm-one1-C-ana-bosw 500-416.6-20 mg tabs PO PRN ibuprofen 800 mg PO Q8H PRN 30 days mecobalamin (vitamin B12) 2,000 mcg sublingual DAILY propranolol ER 80 mg PO DAILY valsartan-hydrochlorothiazide 160-12.5 mg 1 tab PO DAILY HPI HPI OV-f/u lt knee patella fx-xr: Details: 79-year-old female returns to the office today for a follow-up left patellar fracture. She has been increasing activities as tolerated and denies pain. She states she will walk in place and feels a crunching sensation but nothing that causes pain. FORMERLY [facility], [facility] Medical History Parkinson's disease without dyskinesia Parkinson's disease Folate deficiency Vitamin B12 deficiency Thyroid nodule GERD (gastroesophageal reflux disease) HTN (hypertension) Neutropenia Surgical History History of tonsillectomy H/O: hysterectomy Family History Mother Pancreatic cancer Father Heart disease Social History Alcohol intake: current Alcohol intake frequency: holidays/special occasions only Patient Tobacco Use Status: Former Tobacco user Current occupation: rt handed Review of Systems Const All systems reviewed & are unremarkable except as noted in HPI and below Physical Exam Const General: cooperative and no acute distress Orientation/consciousness: patient oriented x3 Resp Effort & Inspection: normal respiratory effort and able to speak in complete sentences Cardio Peripheral pulses: Peripheral pulses 2+ throughout Neuro General: patient oriented x3 Extrem Other: Left knee normal to inspection. She can fully extend the knee. She can flex to about 90 degrees. No significant tenderness to palpation. Calf supple and nontender neurovascularly intact. Results Reviewed Results Reviewed: Xrays were obtained in the office today and personally reviewed by me of the left knee which show stable patella fracture with interval healing Assessment & Plan Assessment & Plan (1) Left patella fracture: Code(s): S82.002A - Unspecified fracture of left patella, initial encounter for closed fracture Category: Medical Qualifiers: Encounter type: subsequent encounter Fracture type: closed Fracture morphology: transverse Fracture alignment: nondisplaced Fracture healing: with routine healing Qualified Code(s): S82.035D - Nondisplaced transverse fracture of left patella, subsequent encounter for closed fracture with routine healing Plan: She will continue to increase activities as tolerated. There is no limitations with her range of motion however if she notices any pain or limitations with activity she should contact our office otherwise she will follow up in 6-8 weeks with x-rays sooner if needed. Orders: Orders XR knee LT 2V Today M25.562 - Pain in left knee Coding Level of Care Code Global (90206) Diagnoses Closed nondisplaced transverse fracture of left patella with routine healing, subsequent encounter S82.035D Encounter type: subsequent encounter Fracture type: closed Fracture morphology: transverse Fracture alignment: nondisplaced Fracture healing: with routine healing
--- OUTSIDE RECORDS SUMMARY | 2024-07-21 13:25 | XMS_ITS | Clinical Summary ---
Author Organization [facility] Facility Address [address] [address] Care Team Providers Care Chief Design Engineer Name Role Phone Austin Hughes MD Primary [...] to complete this topic Insurance TARIK King22 [facility] [place] [id number] [facility] Care Teams Chief Design Engineer Relationship Specialty Start Date End Date Austin Hughes MD [address] [place] [address] [address] [place], [place] PCP - General Internal Medicine 11/13/21
--- OUTSIDE RECORDS SUMMARY | 2024-07-21 13:25 | XMS_ITS ---
Author Organization Austin Hughes MD Address [address] [place], [place] [phone] Care Team Providers Care Paper Carrier Name Role Phone Austin Hughes Primary Care Provider [phone] REASON FOR VISIT refill Medications Medication SIG (Take, Route, Frequency, Duration) Notes Start Date End Date Status Propranolol HCl ER 80 mg TAKE 1 CAPSULE DAILY oral once a day for 90 days Active Encounters Encounter Location Date Provider Diagnosis Austin Hughes MD [address] [place] [phone] 07/12/2024 Austin Hughes Essential hypertension I10 Assessments [...] 07:15:00 AM, [address], [address], [place], [phone], Provider Name:Austin Winslow ier, 11/11/2024 09:30:00 AM, [address], [address], [place], [phone], Progress Notes * Pankaj FERNANDES FDOB:[birth year] (79 yo F)Acc No.[id number]:07/12/2024 Patient:?Pankaj FERNANDES :1945???Age:79 Y???Sex:Female Address:[address] [place] [address] * Refills? Refill Propranolol HCl ER Capsule Extended Release 24 Hour, 80 mg, oral, 90, TAKE 1 CAPSULE DAILY, once a day, 90 days, Refills=3 * true * Date:? Generated for Bird ann/Samia/eTransmitting on:?07/21/2024 01:25 PM EST
--- OUTSIDE RECORDS SUMMARY | 2024-07-21 13:25 | XMS_ITS | Patient Health Record ---
Author Organization Austin Hughes MD Address [address] [place], [place] [id number] Care Team Providers Care Hydrometeorologist Name Role Phone Austin Hughes Primary Care Provider [phone] Allergies Allergen (clinical drug ingredient) Drug/Non Drug Allergy documented on EMR Reaction Allergy Type Onset Date Status Sulfathiazole swelling o f face Drug Allergy Active Ammonium Lactate swelling Drug Allergy Active sumycinGI Upset (uncoded) GI Upset Allergy Active Results Component Value Reference Range Notes Complete Blood Count Auto Di ff Reviewed date:10/31/2023 03:34:21 PM Interpretation: Performing Lab:[facility], [address] [place] [phone] Notes/Report: White Blood Count 3.8 4.8-10.8 X10*3/uL [...] 0.0-0.2 /100WBC Neutrophils Absolute Auto 2.0 2.0-8.3 x10*3/uL Imm Gran Abs Auto 0.01 0.00-0.03 X10*3/uL Lymphocytes Absolute Auto 1.3 1.2-4.9 X10*3/uL Monocytes Absolute Auto 0.3 0.1-1.2 X10*3/uL Eosinophils Absolute Auto 0.2 0.0-0.4 X10*3/uL Basophils Absolute Auto 0.1 0.0-0.2 X10*3/uL NRBC Abs Auto 0.000 0.0-0.012 X10*3/uL Comprehensive [place]. Panel Fa st Reviewed date:10/31/2023 03:33:57 PM Interpretation: Performing Lab:[facility], [address] [place] [phone] Notes/Report: Sodium 135 135-145 mmol/L Potassium 4.1 3.3-5.1 mmol/L Chloride 97 96-108 mmol/L Carbon Dioxide 32 22-29 mmol/L Anion Gap 10 12-20 Blood Urea Nitrogen 12 9-16 mg/dL Creatinine 0.67 0.5-1.4 mg/dL Estimated Glomerular Filt Rate > 60 NOTE: For -Kenyan individuals, multiply the result by 1.210. Chronic [...] Panel Reviewed date:10/31/2023 12:30:19 PM Interpretation: Performing Lab:[facility], [address] [place] [phone] Notes/Report: Triglycerides 38 <150 mg/dL Desirable Triglyceride: [...] t Reviewed date:10/31/2023 03:34:45 PM Interpretation: Performing Lab:[facility], [address] [place] [phone] Notes/Report: Urine, Clean Catch Color Urine Yellow Appearance Urine Clear PH 7.5 5.0-9.0 Glucose Urine UA Negative Negative mg/dL Urine Blood Negative Negative Specific [place] - Urine 1.010 1.005-1.025 Urine Protein Negative Neg-Trace mg/dL Urine Ketones Negative Negative mg/dL Nitrite Urine Negative Negative Leukocyte Esterase Urine Trace Negative RBC Urine 0-2 0-2 /HPF WBC Urine 0-5 0-5 /HPF Squamous Epithelial Cell Urine 0-2 0-2 /HPF Bacteria Urine None Seen None Seen Hyaline Casts Urine 0-2 0-2 /LPF Liver Panel Reviewed date:02/26/2024 01:26:41 PM Interpretation: Performing Lab:[facility], [address] [place] [phone] Notes/Report: Bilirubin Total 0.9 0.0-1.0 mg/dL Bilirubin Direct 0.4 0.0-0.5 mg/dL Aspartate Amino Transferase 24 5-31 U/L Alanine Aminotransferase 19 0-31 U/L Total Protein 6.7 6.5-8.0 g/dL Albumin Level 4.3 3.5-5.0 g/dL Alkaline Phosphatase 85 39-117 U/L Lipid Panel with Reflex Reviewed date:02/26/2024 01:27:05 PM Interpretation: Performing Lab:[facility], [address] [place] [phone] Notes/Report: Triglycerides 26 <150 mg/dL Desirable Triglyceride: [...] low results in patients with liver disease. Occult Blood, Stool, Guaiac Reviewed date:11/07/2023 11:59:57 AM Interpretation:Negative Performing Lab: Notes/Report: Negative Occult Blood, Stool, Guaiac Neg Blood Urea Nitrogen Reviewed date:12/21/2023 09:35:44 AM Interpretation: Performing Lab:[facility], [address] [place] [phone] Notes/Report: Blood Urea Nitrogen 17 9-16 mg/dL Creatinine Reviewed date:12/21/2023 09:35:35 AM Interpretation: Performing Lab:[facility], [address] [place] [phone] Notes/Report: Creatinine 0.70 0.5-1.4 mg/dL Estimated Glomerular Filt Rate > 60 NOTE: For -Kenyan individuals, multiply the result by 1.210. Chronic Kidney Disease: Estimated GFR < 60 mL/min/1.73m2 Severe Kidney Disease: Estimated GFR < 15 mL/min/1.73m2 US abdomen complete Reviewed date:12/18/2023 07:30:37 AM Interpretation: Performing Lab: Notes/Report: [facility] [address] [place] [address] [place] [address] Ultrasound Report Signed Patient: Pankaj Fernandes MR#: [id number] 875 : 1945 Acct:[id number] Age/Sex: 78 / F ADM Date: 11/18/23 Loc: HO.HMGCX Attending Dr: Austin Hughes MD Ordering Physician: Austin Hughes MD Date of Service: 11/18/23 Procedure(s): US abdomen complete Accession Number(s): [id number] cc: Austin Hughes MD EXAMINATION: US ABDOMEN [...] Targeted ultrasound images were obtained by the head gauge unit operator of the area of concern as indicated [...] in OV> 12/16/23 1408 DD/ 1010 TD/TT: Barmaid: [facility] [address] [place] [address] [place] [address] Ultrasound Report Signed Patient: Mukesh Fernandes MR#: [id number] 875 : 1945 Acct:[id number] Age/Sex: 78 / F ADM Date: 11/18/23 Loc: .HMGCX Attending Dr: Austin Hughes MD Ordering Physician: Austin Hughes MD Date of Service: 11/18/23 Procedure(s): US abd omen complete Accession Number(s): [id number] cc: Austin Hughes MD EXAMINATION: US ABDOMEN COMPLETE CLINICAL INFORMATION: Abdominal mass. COMPARISON: None available. TECHNIQUE: Real-time imaging of the abdominal viscera. Limited visualizatio n due to bowel gas. FINDINGS: PANCREAS: Limited visualization of pancreatic tail and head. Imaged portion of pancreati c body is unremarkable. ABDOMINAL AORTA: Atherosclerosis. Limited visualization. Dedicated imaging of the abdom inal aorta should be considered for further evaluation. INFERIOR VENA CAVA: Visualized portions are normal. LIVER: Increased hep atic parenchymal heterogeneity and echogenicity could be associated with hepatocellular disease/hepatic steatosis and substantially limits visualization. Correlation with liver function tests and clinical e xam recommended to determine further management. GALLBLADDER: No gallstones. No gallbladder wall thickening. COMMON BILE DUCT: No rmal in caliber measuring 0.12 cm in diameter. RIGHT KIDNEY: Right renal 2.4 x 1.8 x 2.0 cm mildly complex cyst with thin septation. Ther e is no specific indication for additional imaging at this time. No hydronephrosis or renal calculi. The kidney measures 10.2 cm in maximum dimension. LEFT KIDNEY: No hydronephrosis. No renal calculi. Limited visualization. The k idney measures 11.6 cm in maximum dimension. SPLEEN: Normal. The spleen measures 8.1 cm in maximum dimension. FREE FLUID: None. ADDITIONAL FINDINGS: Targeted ultrasound images were obtained by the head gauge unit operator of the a nadiar of concern as indicated by the patient in the superior and to righ t of the umbilicus and demonstrated a 1.9 x 0.8 x 1.8 cm complex hypoe choic mixed cystic/solid mass. No internal vascularity demonstr ated. Mildly irregular margins. Radiologist was not in attendance. Image s were later provided for interpretation. U S/US abdomen complete IMPRESSION: 1. Increased hepatic parenchymal heterogeneity and echogenicity could be associated with hepatocellular disease/hepatic steatosis and substantially limits visualization. Correlation with liver function tests and clinical e xam recommended to determine further management. 2. Atherosclerosis. Limited visualization. Dedicated imaging of the abdominal aorta shou ld be considered for further evaluation. 3. A 1.8 cm complex mixed cystic/solid mass in the area of concern indicated by the pat ient superior and slightly to the right of the umbilicus of indeterminate etiology. CT scan should be considered for further evaluation. Dictated By: Ester Caruso MD Signed By: <Electronically signed by Ester Caruso MD in OV> 12/16/23 1408 DD/ 1010 TD/TT: Barmaid: NATALY Reviewed date:01/23/2024 01:07:54 PM Interpretation:Negative Performing Lab: Notes/Report: Negative Hold Gold Reviewed date:02/26/2024 01:26:49 PM Interpretation: Performing Lab:[facility], [address] [place] [phone] Notes/Report: Hold Gold See Note Specimen held untested for 24 hours; Call to request Chemistry testing. MM tomosynthesis screening B I Reviewed date:03/19/2024 12:00:21 PM Interpretation: Performing Lab: Notes/Report: [facility] [address] [place] [address] Mammography Report Signed with Addenda Patient: Panakj Fernandes MR#: [id number] 875 : 1945 Acct:[id number] Age/Sex: 78 / F ADM Date: 03/05/24 Loc: HO.MAMMO Attending Dr: Austin Hughes MD Ordering Physician: Austin Hughes MD Results: 1Ne gative Date of Service: 03/05/24 Follow Up: 1 Year From Orig ina Mammogram Procedure(s): MM tomosynthesis screening BI Accession Number(s): [id number] cc: Austin Hughes MD ADDENDUM ADDENDUM #1 ADDENDUM: Due to a software issue related to the original report, this case has been reviewed again and the original findings and recommendations remain the same. OVERALL ASSESSMENT: BI-RADS 1 - Negative RECOMMENDATION: 1 year F/U Electronically signed by: Santa Mccauley DO 03/19/2024 10:25 AM EDT Addendum Dictated By: Santa Mccauley DO Addendum [...] 03/16/24 1446 DD/ 1012 TD/TT: 03/05/24 1028 Barmaid: [facility] [address] [place] [address] Mammography Report Signed with Addenda Patient: Mukesh Fernaneds MR#: [id number] 875 : 1945 Acct:[id number] Age/Sex: 78 / F ADM Date: 03/05/24 Loc: HO.MAMMO Attending Dr: Austin Hughes MD Ordering Physician: Austin Hughes MD Results: 1Ne gative Date of Service: Follow Up: 1 Year From [facility] Mammogram Procedure(s): MM tomosynthesis screening BI Accession Number(s): [id number] cc: Austin Hughes MD ADDENDUM ADDENDUM #1 ADDENDUM: Due to a software is sabi related to the original report, this case has been reviewed again and the original findings and recommendations remain the same. OVERALL ASSESSMENT: BI-RADS 1 - Negative RECOMMENDATION: 1 year F/U Electronically lindy d by: Santa Mccauley DO 03/19/2024 10:25 AM EDT RP Addendum Dictated By : Santa Mccauley DO Addendum Signed By: <Electronically signed by Santa Mccauley DO in OV> 03/19/24 1025 Addendum Cosigned By: DD/ TD/TT: 03/05/24 EXAMINATION: MM SCREENING DIGITAL BREAST TOMOSYNTHESIS, BILATERAL CLINICAL INFORMATION: Screening. Asymptomatic. COMPARISON: Mammography: Compari son is made with available priors TECHNIQUE: Digital breast mammography with tomosynthesis is performed in both the craniocaudal and mediolateral oblique views along with computer-aided detection (CAD). FINDINGS: There are scattered areas of fibroglandular density (ACR BI-RADS breast composition Category b). There are no signifi cant masses, abnormal calcifications, or other abnormalities. M M/MM tomosynthesis screening BI IMPRESSION: No mammographic evid ence of malignancy. ASSESSMENT: BI-RADS BI-RADS 1 - Negative RECOMMENDATION: Routine annual mammography screening. 1 year F/U This examination micky uld not preclude the clinical evaluation of a suspicious palpable abnormality. This patient's information was entered into a reminder system with a target due date for their next mammogram. Electronically lindy d by: Santa Mccauley DO 03/16/2024 02:46 PM EDT Dictated By: Santa Mccauley DO Signed By: <Electronically signed by Santa Mccauley DO in OV> 03/16/24 1446 DD/ TD/TT: 03/05/24 102 Barmaid: CT cervical spine wo con Reviewed date:05/25/2024 12:45:13 PM Interpretation: Performing Lab: Notes/Report: [address] [address] [address] Scan Report Signed Patient: Pankaj Fernandes MR#: [id number] 875 : 1945 Acct:[id number] Age/Sex: 79 / F ADM Date: 05/24/24 Loc: .ED Attending Dr: Ordering Physician: Bradley Bynum Date of Service: 05/24/24 Procedure(s): CT cervical spine wo IV con Accession Number(s): [id number] cc: Bradley Bynum; Austin Hughes MD Report Number: [id number]: Total DLP = 1190.00 mGy-cm CLINICAL HISTORY: [...] MD in OV> 05/24/241857 DD/ 55 TD/TT: 05/24/241855 Barmaid: [address] [address] [address] Scan Report Signed Patient: Mukesh Fernandes MR#: [id number] 875 : 1945 Acct:[id number] Age/Sex: 79 / F ADM Date: 05/24/24 Loc: HO.ED Attending Dr: Ordering Physician: Bradley Bynum Date of Service: 05/24/24 Procedure(s): CT cer vical spine wo IV con Accession Number(s): [id number] cc: Bradley Bynum; Austin Hughes MD Report Number: [id number]: Total DLP = 1190.00 mGy-cm CLINICAL HISTORY: Fall CT cervical spine wi thout contrast Comparison: None Findings: Normal vertebral bod y alignment. Multilevel disc spac e narrowing and endplate osteophyte formation, as well as facet hypertrophy. No acute fractures o r dislocations. Visualized intracran ial contents are unremarkable. Soft tissues of the neck are normal. No consolidation or effusion at the lung apices. IMPRESSION: No acute findings. This document has be en electronically signed by: Kayla George MD on 05/24/2024 18:56:27 Dictated By: Andre George MD Signed By: <Electronically signed by Kayla George MD in OV> 05/24/241857 DD/ 55 TD/TT: 05/24/241855 Barmaid: CT head/brain wo con Reviewed date:05/25/2024 12:51:33 PM Interpretation: Performing Lab: Notes/Report: [address] [address] [address] Scan Report Signed Patient: Pankaj Fernandes MR#: [id number] 875 : 1945 Acct:[id number] Age/Sex: 79 / F ADM Date: 05/24/24 Loc: HO.ED Attending Dr: Ordering Physician: Bradley Bynum Date of Service: 05/24/24 Procedure(s): CT head/brain wo IV con Accession Number(s): [id number] cc: Bradley Bynum; Austin Hughes MD Report Number: [id number]: Total DLP = 1190.00 mGy-cm CLINICAL HISTORY: [...] in OV> 05/24/241856 DD/ 55 TD/TT: 05/24/241855 Barmaid: [address] [address] [address] Scan Report Signed Patient: Mukesh Fernandes MR#: [id number] 875 : 1945 Acct:[id number] Age/Sex: 79 / F ADM Date: 05/24/24 Loc: .ED Attending Dr: Ordering Physician: Bradley Bynum Date of Service: 05/24/24 Procedure(s): CT head/brain wo IV con Accession Number(s): [id number] cc: Bradley Bynum; Austin Hughes MD Report Number: [id number]: Total DLP = 1190.00 mGy-cm CLINICAL HISTORY: Fall CT head without contrast Comparison: None Findings: No intra-axial mass, midline shift, hydrocephalus, or acute hemorrhage. Mild diffuse cerebra l volume loss. Mild degree of patchy low-density within the periventricular and subcortical white matter. There is no sinus or mastoid fluid. The orbits are unremarkable. No skull fracture. IMPRESSION: 1. No acute intracra nial findings This document has be en electronically signed by: Kayla George MD on 05/24/2024 18:56:11 Dictated By: Andre George MD Signed By: <Electronically signed by Kayla George MD in OV> 05/24/241856 DD/ 55 TD/TT: 05/24/241855 Barmaid: CT facial bones wo con Reviewed date:05/25/2024 12:50:26 PM Interpretation: Performing Lab: Notes/Report: [place] [address] CT Scan Report Signed Patient: Pankaj Fernandes MR#: [id number] 875 : 1945 Acct:[id number] Age/Sex: 79 / F ADM Date: 05/24/24 Loc: HO.ED Attending Dr: Ordering Physician: Bradley Bynum Date of Service: 05/24/24 Procedure(s): CT facial bones wo IV con Accession Number(s): [id number] cc: Bradley Bynum; Austin Hughes MD Report Number: [id number]: Total DLP = 1190.00 mGy-cm CLINICAL HISTORY: [...] in OV> 05/24/241856 DD/ 55 TD/TT: 05/24/241855 Barmaid: [address] [address] [address] Scan Report Signed Patient: Mukesh Fernandes MR#: [id number] 875 : 1945 Acct:[id number] Age/Sex: 79 / F ADM Date: 05/24/24 Loc: HO.ED Attending Dr: Ordering Physician: Bradley Bynmu Date of Service: 05/24/24 Procedure(s): CT fac ial bones wo IV con Accession Number(s): [id number] cc: Bradley Bynum; Austin Hughes MD Report Number: [id number]: Total DLP = 1190.00 mGy-cm CLINICAL HISTORY: fall CT maxillofacial wit hout contrast Comparison: None Findings: No acute fractures. Temporomandibular jennifer ints are intact. Paranasal sinuses an d mastoid air cells clear. Orbital contents wit hin normal limits. Visualized intracran ial contents are within normal limits. No foreign bodies. IMPRESSION: Unremarkable maxillofacial CT. This document has be en electronically signed by: Kayla George MD on 05/24/2024 18:56:20 Dictated By: Andre George MD Signed By: <Electronically signed by Kayla George MD in OV> 05/24/241856 DD/ 55 TD/TT: 05/24/241855 Barmaid: XR knee LT 4V Reviewed date:05/25/2024 12:52:40 PM Interpretation: Performing Lab: Notes/Report: [address] [address] XRay Report Signed Patient: Pankaj Fernandes MR#: [id number] 875 : 1945 Acct:[id number] Age/Sex: 79 / F ADM Date: 05/24/24 Loc: HO.ED Attending Dr: Ordering Physician: Bradley Bynum Date of Service: 05/24/24 Procedure(s): XR knee LT 4V Accession Number(s): [id number] cc: Bradley Bynum; Austin Hughes MD CLINICAL [...] signed by Kayla George MD in OV> 05/24/241829 DD/ 28 TD/TT: 05/24/241828 Barmaid: [place] [address] XRay Report Signed Patient: Mukesh Fernandes MR#: [id number] 875 : 1945 Acct:[id number] Age/Sex: 79 / F ADM Date: 05/24/24 Loc: .ED Attending Dr: Ordering Physician: Bradley Bynum Date of Service: 05/24/24 Procedure(s): XR kne e LT 4V Accession Number(s): [id number] cc: Bradley Bynum; Austin Hughes MD CLINICAL HISTORY: fa ll. fracture? 4 view left knee Comparison: None Findings: Linear lucency trave rses the mid patella. No significant arthr itic change or erosions. Small knee joint effusion. No radiopaque foreig n body. IMPRESSION: Patellar fracture. This document has be en electronically signed by: Kayla George MD on 05/24/2024 18:29:00 Dictated By: Andre George MD Signed By: <Electronically signed by Kayla George MD in OV> 05/24/241829 DD/ 28 TD/TT: 05/24/241828 Barmaid: Reason For Referral Reason trigger finger on kel th hand [...] Referral Priority Routine Referral Appointment Date 12/30/2023 Medications Medication SIG (Take, Route, Frequency, Duration) Notes Start Date End Date Status Carbidopa-Levodopa 25-100 MG 1 tablet as needed Orally Three times a day Active Atorvastatin Calcium 20 MG 1 tablet Orally Once a day for 90 days 12/19/2023 Active Valsartan-hydroCHLOROthia zide 160-12.5 mg TAKE 1 TABLET DAILY oral once a day for 90 days Active Vitamin C 500 MG Orally Not -Taking [...] bedtim e Orally Once a day Not-Taking Propranolol HCl ER 80 mg TAKE 1 CAPSULE DAILY oral once a day for 90 days Active Immunizations Vaccine Route Administration Date Status Comme nts Flu Vaccine IM Intramuscular 02/12/2011 Administered Flu Vaccine IM Intramuscular 02/05/2012 Administered [facility] Shingles IM Intramuscular 02/16/2013 Administered Flu Vaccine IM Intramuscular 02/08/2013 Administered [facility] i n TARIK Lopez PPSV23 (Pnemovax) IM Intramuscular 02/25/2013 Administered Fluarix Quadrivalent IM Intramuscular 02/08/2014 Administe red Flu Vaccine Unknown 02/15/2015 Administered [facility] [place] Fluarix Quadrivalent IM Intramuscular 02/19/2016 Administe red PPSV23 (Pnemovax) IM Intramuscular 04/04/2016 Administered pt was given the vaccine at the [facility] pharmacy in [facility]. Prevnar 13 IM Intramuscular 12/09/2017 Administered TDaP IM Intramuscular 12/30/2017 Administered pt was given the vaccine at [facility] in [place]. Influenza High Dose IM Intramuscular 03/04/2018 Administer ed pt was given the vaccine at [facility] in [place]. Influenza High Dose IM Intramuscular 02/22/2019 Administer ed Influenza High Dose Unknown 02/18/2020 Administered Bradley rida Shingrix Unknown 05/15/2020 Administered Lot [id number]) EXP 06-30-21 VIS 03-17-19[facility] [place] Covid Vaccine Unknown 07/07/2020 Administered Moderna Covid Vaccine Unknown 08/04/2020 Administered Moderna Influenza High Dose IM Intramuscular 02/09/2021 Administer ed SARS-COV-2 Moderna Unknown 11/08/2021 Administered Influenza High Dose IM Intramuscular 02/26/2024 Administer ed Flu Vaccine Unknown 02/08/2014 Pending Shingrix Unknown 03/06/2020 Pending Patient had it in [place] Social History Tobacco Use: Social History Observation Description Date Details (start date - stop date) Former Smoker NA - NA Tobacco Use/Smoking Question Answer Notes Patient is [...] Never (0 point) Points 4 Interpretation Positive Problems Problem Type SNOMED Code ICD Code Onset Dates Problem Status W/U Status Risk Notes Problem Thyroid nodule (431372568) Thyroid nodule (E04.1) Active confirmed Problem Neutropenia (335290252) Neutropenia (D70.9) Active confirmed Problem 996163869 Essential tremor (G25.0) Active confirmed Problem 500810913 Gastroesophageal reflux disease without esophagitis (K21.9) Active confirmed Problem 94834635 Essential hypertension (I10) Active confirmed Problem 353836777 Environmental allergies (Z91.09) Active confirmed Problem Parkinson disease (61444295) Parkinson disease (G20) Active confirmed Problem Recurrent falls (169892856) Falls frequently (R29.6) Active confirmed Problem 347528222 Osteopenia of sp ine (M85.88) Active confirmed Problem 102665482 H/O: hysterectom y (Z90.710) Active confirmed Problem 85967094 Aortic atherosclerosis (I70.0) Active confirmed Vital Signs Blood pressure diastolic 74 mm Hg 01/22/2024 omer ght is down 2 pounds since 12-19-23 Height 65 in 01/22/2024 weight is down 2 pounds since 12-19-23 Blood pressure systolic 132 mm Hg 01/22/2024 weig ht is down 2 pounds since 12-19-23 Weight 131 lbs 01/22/2024 weight is down 2 pounds since 12-19-23 BMI 21.80 kg/m2 01/22/2024 weight is down 2 pounds since 12-19-23 Encounters Encounter Location Date Provider Diagnosis Austin Hughes MD [address] [place] [address] [id number] 10/31/2023 Austin Hughes Blood tests for rout ine general physical examination Z00.00 ; Essential hypertension I10 and Neutropenia D70.9 Austin Hughes MD [address] [place] [address] [id number] 02/26/2024 Austin Hughes Aortic atheroscleros is I70.0 and Encounter for immunization Z23 Austin Hughes MD [address] [place] [address] [id number] 11/07/2023 Austin Hughes Essential hypertensi on I10 ; Annual physical exam Z00.00 ; Parkinson disease G20 ; Palpable abdominal mass R19.00 ; Encounter for screening for malignant neoplasm of colon Z12.11 ; Encounter for screening for malignant neoplasm of rectum Z12.12 ; Depression screening Z13.31 and Parkinson disease, symptomatic G20.A1 Austin Hughes MD [address] [place] [address] [id number] 12/19/2023 Austin Hughes Abdominal wall mass R22.2 ; Aortic atherosclerosis I70.0 and Pre-procedural laboratory examinations Z01.812 Austin Hughes MD [address] [place] [address] Drive [address] [place] [address] [id number] 01/22/2024 Austin Hughes Ventral hernia witho ut obstruction or gangrene K43.9 Austin Hughes MD [address] [place] [address] [id number] 12/19/2023 Austin Hughes MD [address] [place] [address] [id number] 01/22/2024 Austin Hughes MD [address] [place] [address] [id number] 05/27/2024 Austin Hughes MD [address] [place] [address] [id number] 05/30/2024 Austin Hughes MD [address] [place] [address] [id number] 07/06/2024 Austin Hughes Essential hypertensi on I10 Austin Hughes MD [address] [id number] 07/12/2024 Austin Hughes Essential hypertensi on I10 Austin Hughes MD [address] [id number] 07/12/2024 Austin Hughes Assessments Encounter Date Diagnosis (ICD Code) Assessment Notes Treatment Notes Treatment Clinical Notes Section Notes 10/31/2023 Blood tests for routine general physical examination (ICD-10 - Z00.00) 10/31/2023 Essential hypertension (ICD-10 - I10) 02/26/2024 Aortic atherosclerosis (ICD-10 - I70.0) 02/26/2024 Encounter for immunization (ICD-10 - Z23) 11/07/2023 Essential hypertension (ICD-10 - I10) well controlled, will continue current regiment 11/07/2023 Annual physical exam (ICD-10 - Z00.00) labs reviewed and discussed with patient 12/19/2023 Abdominal wall mass (ICD-10 - R22.2) pending diagnostic testing, THE ORDER HAS BEEN FAXED TO [facility] , PATIENT AWARE . BUN , CREATININE RESULTS PENDING 12/19/2023 Aortic atherosclerosis (ICD-10 - I70.0) patient verbalized understanding of medication and directions for use 01/22/2024 Ventral hernia without obstruction or gangrene [...] reviewing documentation, studies and counseling the patient. 07/06/2024 Essential hypertension (ICD-10 - I10) 07/12/2024 Essential hypertension (ICD-10 - I10) 10/31/2023 Neutropenia (ICD-10 - D70.9) 11/07/2023 Parkinson disease (ICD-10 - G20) doing well on meds, will continue current regiment 11/07/2023 Palpable abdominal mass (ICD-10 - R19.00) seems most likely stool. / order faxed to [facility] dept, pending diagnostic testing 11/07/2023 Encounter for screening for malignant neoplasm of colon (ICD-10 - Z12.11) order faxed to [facility] 12/19/2023 Pre-procedural laboratory examinations (ICD-10 - Z01.812) labs ordered prior to diagnostic testing 11/07/2023 Encounter for screening for malignant neoplasm of rectum (ICD-10 - Z12.12) guaiac negative 11/07/2023 Depression screening (ICD-10 - Z13.31) 11/07/2023 Parkinson disease, symptomatic (ICD-10 - G20.A1) Plan Of Treatment Pending Test Test Name Order Date Electrocardiogram (EKG) 02/13/2017 Electrocardiogram (EKG) 02/13/2018 MAMMOGRAM DIGITAL BILATERAL SCREEN 04/08 US ABD 11/07/2023 CT abdomen pelvis wo/w con 12/19/2023 MM screening mammo BI 03/23/2021 MM diagnostic mammo BI 03/22/2021 Future Test Test Name Order Date BONE DENSITY DEXA 01/03/2021 Next Appt Details Provider Name:Austin Winslow ier, 11/05/2024 07:15:00 AM, [address] [place] [address], [address], [place], [phone], Provider Name:Austin Winslow ier, 11/11/2024 09:30:00 AM, [address] [place] [address], [address], [place], [place], [phone], Insurance Providers Payer Name Payer Address Payer Phone Subscriber Number Group Number Insured Name Patient Relationship to Insured Coverage Start Date Coverage End Date [facility] are [employer] [address] [address] [place] [address] [id number] DenaMichael sampsone Self - patient is the insured MEDICARE [employer] [address] [place] [id number] Pankaj Fernandes Self - patient is the insured 2 Medications Administered Medication Instructions Date of Administration Dosage Notes B12 09/07/2020 1 mL Patient eben t own Vitamin B12, I just administered Medical (General) History Medical History History ICD Code colonoscopy 09/2009 - due in 10 years HX of hysterectomy Thyroid nodule E04.1 thyroid nodule followed and no change in 2 years and benign no need to follow Surgical History Surgery Date(Month/Year) partial hysterectomy
== END 2024-07-21 11:44 | disposition home or self-care (01) ==
PROVIDERS: PCP Internal Medicine; Visit Provider Physician Assistant
DX: S82.035D Nondisplaced transverse fracture of left patella, subsequent encounter for closed fracture with routine healing (principal)
CPT/HCPCS: 99024

== ENCOUNTER → 2024-07-21 11:21 | Outpatient (BNV) | payer MEDICARE, SELFPAY | PROVIDERS: Visit Provider Radiology Diagnostic Radiology | DX: S82.035A Nondisplaced transverse fracture of left patella, initial encounter for closed fracture (principal) | CPT/HCPCS: 73560 ==

== ENCOUNTER 2024-09-01 11:44 | Outpatient (REF) | payer MEDICARE, SELFPAY ==
--- NOTE | ~2024-09-01 | XR_ITS ---
EXAMINATION: XR KNEE, LEFT CLINICAL INFORMATION: M25.562 - Pain in left knee COMPARISON: 07/21/2024. TECHNIQUE: Two views of the left knee. FINDINGS: Mild osteopenia. No dislocation, or suspicious bone lesion. Mid waist subacute patellar fracture redemonstrated, with fracture lines becoming much more obscured indicating healing. Normal alignment. Joint spaces appear preserved. No joint effusion. No soft tissue abnormality. XR/XR knee LT 2V IMPRESSION: Healing nondisplaced mid waist patellar fracture. Electronically signed by: Malick Zhao MD 09/02/2024 10:22 AM EDT
--- OUTSIDE RECORDS SUMMARY | 2024-09-02 14:37 | XMS_ITS | Patient Health Record ---
Author Organization Austin Hughes MD Address [address] [place], [place] [address] Care Team Providers Care Rent Collector Name Role Phone Austin Hughes Primary Care Provider [phone] Allergies Allergen (clinical drug ingredient) Drug/Non Drug Allergy documented on EMR Reaction Allergy Type Onset Date Status Sulfathiazole swelling o f face Drug Allergy Active lactate Ammonium Lactate swelling Drug Allergy Active sumycinGI Upset (uncoded) GI Upset Allergy Active Results Component Value Reference Range Notes Complete Blood Count Auto Di ff Reviewed date:10/31/2023 03:34:21 PM Interpretation: Performing Lab:[facility], [address] [place] [phone] Notes/Report: White Blood Count 3.8 4.8-10.8 X10*3/uL [...] NRBC Abs Auto 0.000 0.0-0.012 X10*3/uL Comprehensive [place]. Panel Fa st Reviewed date:10/31/2023 03:33:57 PM Interpretation: Performing Lab:[facility], [address] [place] [phone] Notes/Report: Sodium 135 135-145 mmol/L Potassium 4.1 3.3-5.1 mmol/L Chloride 97 96-108 mmol/L Carbon Dioxide 32 22-29 mmol/L Anion Gap 10 12-20 Blood Urea Nitrogen 12 9-16 mg/dL Creatinine 0.67 0.5-1.4 mg/dL Estimated Glomerular Filt Rate > 60 NOTE: For -Marshallese individuals, multiply the result by 1.210. Chronic [...] Panel Reviewed date:10/31/2023 12:30:19 PM Interpretation: Performing Lab:[facility], [address] [place] [phone] Notes/Report: Triglycerides 38 <150 mg/dL Desirable Triglyceride: [...] t Reviewed date:10/31/2023 03:34:45 PM Interpretation: Performing Lab:[facility], [address] [place] [phone] Notes/Report: Urine, Clean Catch Color Urine Yellow Appearance Urine Clear PH 7.5 5.0-9.0 Glucose Urine UA Negative Negative mg/dL Urine Blood Negative Negative Specific [place] - Urine 1.010 1.005-1.025 Urine Protein Negative Neg-Trace mg/dL Urine Ketones Negative Negative mg/dL Nitrite Urine Negative Negative Leukocyte Esterase Urine Trace Negative RBC Urine 0-2 0-2 /HPF WBC Urine 0-5 0-5 /HPF Squamous Epithelial Cell Urine 0-2 0-2 /HPF Bacteria Urine None Seen None Seen Hyaline Casts Urine 0-2 0-2 /LPF Liver Panel Reviewed date:02/26/2024 01:26:41 PM Interpretation: Performing Lab:[facility], [address] [place] [phone] Notes/Report: Bilirubin Total 0.9 0.0-1.0 mg/dL Bilirubin Direct 0.4 0.0-0.5 mg/dL Aspartate Amino Transferase 24 5-31 U/L Alanine Aminotransferase 19 0-31 U/L Total Protein 6.7 6.5-8.0 g/dL Albumin Level 4.3 3.5-5.0 g/dL Alkaline Phosphatase 85 39-117 U/L Lipid Panel with Reflex Reviewed date:02/26/2024 01:27:05 PM Interpretation: Performing Lab:[facility], [address] [place] [phone] Notes/Report: Triglycerides 26 <150 mg/dL Desirable Triglyceride: [...] Nitrogen Reviewed date:12/21/2023 09:35:44 AM Interpretation: Performing Lab:[facility], [address] [place] [phone] Notes/Report: Blood Urea Nitrogen 17 9-16 mg/dL Creatinine Reviewed date:12/21/2023 09:35:35 AM Interpretation: Performing Lab:[facility], [address] [place] [address] Notes/Report: Creatinine 0.70 0.5-1.4 mg/dL Estimated Glomerular Filt Rate > 60 NOTE: For -Marshallese individuals, multiply the result by 1.210. Chronic Kidney Disease: Estimated GFR < 60 mL/min/1.73m2 Severe Kidney Disease: Estimated GFR < 15 mL/min/1.73m2 US abdomen complete Reviewed date:12/18/2023 07:30:37 AM Interpretation: Performing Lab: Notes/Report: [facility] [address] [place] [address] [place] [address] Ultrasound Report Signed Patient: Pankaj Fernandes MR#: [id number] 875 : 1945 Acct:[id number] Age/Sex: 78 / F ADM Date: 11/18/23 Loc: HO.HMGCX Attending Dr: Austin Hughes MD Ordering Physician: Austin Hughes MD Date of Service: 11/18/23 Procedure(s): US abdomen complete Accession Number(s): [id number] cc: Austin Hughes MD EXAMINATION: US ABDOMEN [...] Targeted ultrasound images were obtained by the hospital admissions officer of the area of concern as indicated [...] in OV> 12/16/23 1408 DD/ 1010 TD/TT: Nurseryperson: [facility] [place] [address] Ultrasound Report Signed Patient: Mukesh Fernandes MR#: [id number] 875 : 1945 Acct:[id number] Age/Sex: 78 / F ADM Date: 11/18/23 Loc: .HMGCX Attending Dr: Austin Hughes MD Ordering Physician: Austin Hughes MD Date of Service: 11/18/23 Procedure(s): US abd omen complete Accession Number(s): [id number] cc: Austin Hughes MD EXAMINATION: US ABDOMEN [...] Targeted ultrasound images were obtained by the hospital admissions officer of the a [place] of concern as indicated by the patient [...] in OV> 12/16/23 1408 DD/ 1010 TD/TT: Nurseryperson: NATALY Reviewed date:01/23/2024 01:07:54 PM Interpretation:Negative Performing Lab: Notes/Report: Negative Hold Gold Reviewed date:02/26/2024 01:26:49 PM Interpretation: Performing Lab:[facility], [address] [place] [address] Notes/Report: Hold Gold See Note Specimen held untested for 24 hours; Call to request Chemistry testing. MM tomosynthesis screening B I Reviewed date:03/19/2024 12:00:21 PM Interpretation: Performing Lab: Notes/Report: [facility] [address] [place] [address] Mammography Report Signed with Addenda Patient: Pankaj Fernandes MR#: [id number] 875 : 1945 Acct:[id number] Age/Sex: 78 / F ADM Date: 03/05/24 Loc: HO.MAMMO Attending Dr: Austin Hughes MD Ordering Physician: Austin Hughes MD Results: 1Ne gative Date of Service: 03/05/24 Follow Up: 1 Year From Orig ina Mammogram Procedure(s): MM tomosynthesis screening BI Accession Number(s): [id number] cc: Austin Hughes MD ADDENDUM ADDENDUM #1 [...] 03/16/24 1446 DD/ 1012 TD/TT: 03/05/24 1028 Nurseryperson: [facility] [address] [place] [address] Mammography Report Signed with Addenda Patient: Mukesh Fernandes MR#: [id number] 875 : 1945 Acct:[id number] Age/Sex: 78 / F ADM Date: 03/05/24 Loc: HO.MAMMO Attending Dr: Austin Hughes MD Ordering Physician: Autsin Hughes MD Results: 1Ne gative Date of Service: Follow Up: 1 Year From [facility] Mammogram Procedure(s): MM tomosynthesis screening BI Accession Number(s): [id number] cc: Austin Hughes MD ADDENDUM ADDENDUM #1 [...] 03/16/24 1446 DD/ 1012 TD/TT: 03/05/24 1028 Nurseryperson: CT cervical spine wo con Reviewed date:05/25/2024 12:45:13 PM Interpretation: Performing Lab: Notes/Report: [address] [address] [address] Scan Report Signed Patient: Pankaj Fernandes MR#: [id number] 875 : 1945 Acct:[id number] Age/Sex: 79 / F ADM Date: 05/24/24 Loc: HO.ED Attending Dr: Ordering Physician: Bradley Bynum Date of Service: 05/24/24 Procedure(s): CT cervical spine wo IV con Accession Number(s): [id number] cc: Bradley Bynum; Austin Hughes MD Report Number: [id number]: Total DLP = 1190.00 mGy-cm CLINICAL HISTORY: [...] in OV> 05/24/241857 DD/ 55 TD/TT: 05/24/241855 Nurseryperson: [place] [address] [address] Scan Report Signed Patient: Mukesh Fernandes MR#: [id number] 875 : 1945 Acct:[id number] Age/Sex: 79 / F ADM Date: 05/24/24 Loc: HO.ED Attending Dr: Ordering Physician: Bradley Bynum Date of Service: 05/24/24 Procedure(s): CT cer vical spine wo IV con Accession Number(s): [id number] cc: Bradley Bynum; Austin Hughes MD Report [...] in OV> 05/24/241857 DD/ 55 TD/TT: 05/24/241855 Nurseryperson: CT head/brain wo con Reviewed date:05/25/2024 12:51:33 PM Interpretation: Performing Lab: Notes/Report: [address] [address] [address] Scan Report Signed Patient: Pankaj Fernandes MR#: [id number] 875 : 1945 Acct:[id number] Age/Sex: 79 / F ADM Date: 05/24/24 Loc: HO.ED Attending Dr: Ordering Physician: Bradley Bynum Date of Service: 05/24/24 Procedure(s): CT head/brain wo IV con Accession Number(s): [id number] cc: Bradley Bynum; Austin Hughes MD Report Number: [id number]: Total DLP = 1190.00 mGy-cm CLINICAL HISTORY: [...] in OV> 05/24/241856 DD/ 55 TD/TT: 05/24/241855 Nurseryperson: [address] [address] [address] Scan Report Signed Patient: Mukesh Fernandes MR#: [id number] 875 : 1945 Acct:[id number] Age/Sex: 79 / F ADM Date: 05/24/24 Loc: .ED Attending Dr: Ordering Physician: Bradley Bynum Date of Service: 05/24/24 Procedure(s): CT head/brain wo IV con Accession Number(s): [id number] cc: Bradley Bynum; Austin Hughes MD Report [...] in OV> 05/24/241856 DD/ 55 TD/TT: 05/24/241855 Nurseryperson: CT facial bones wo con Reviewed date:05/25/2024 12:50:26 PM Interpretation: Performing Lab: Notes/Report: [place] [address] [place] Scan Report Signed Patient: Pankaj Fernandes MR#: [id number] 875 : 1945 Acct:[id number] Age/Sex: 79 / F ADM Date: 05/24/24 Loc: HO.ED Attending Dr: Ordering Physician: Bradley Bynum Date of Service: 05/24/24 Procedure(s): CT facial bones wo IV con Accession Number(s): [id number] cc: Bradley Bynum; Austin Hughes MD Report Number: [id number]: Total DLP = 1190.00 mGy-cm CLINICAL HISTORY: [...] in OV> 05/24/241856 DD/ 55 TD/TT: 05/24/241855 Nurseryperson: [address] [address] [address] Scan Report Signed Patient: Mukesh Fernandes MR#: [id number] 875 : 1945 Acct:[id number] Age/Sex: 79 / F ADM Date: 05/24/24 Loc: HO.ED Attending Dr: Ordering Physician: Bradley Bynum Date of Service: 05/24/24 Procedure(s): CT fac ial bones wo IV con Accession Number(s): [id number] cc: Bradley Bynum; Austin Hughes MD Report [...] in OV> 05/24/241856 DD/ 55 TD/TT: 05/24/241855 Nurseryperson: XR knee LT 4V Reviewed date:05/25/2024 12:52:40 PM Interpretation: Performing Lab: Notes/Report: [address] [address] XRay Report Signed Patient: Pankaj Fernandes MR#: [id number] 875 : 1945 Acct:[id number] Age/Sex: 79 / F ADM Date: 05/24/24 Loc: HO.ED Attending Dr: Ordering Physician: Bradley Bynum Date of Service: 05/24/24 Procedure(s): XR knee LT 4V Accession Number(s): [id number] cc: Bradley Bynum; Austin Hughes MD CLINICAL [...] in OV> 05/24/241829 DD/ 28 TD/TT: 05/24/241828 Nurseryperson: [place] [address] XRay Report Signed Patient: Mukesh Fernandes MR#: [id number] 875 : 1945 Acct:[id number] Age/Sex: 79 / F ADM Date: 05/24/24 Loc: .ED Attending Dr: Ordering Physician: Bradley Bynum Date of Service: 05/24/24 Procedure(s): XR kne e LT 4V Accession Number(s): [id number] cc: Bradley Bynum; Austin Hughes MD CLINICAL [...] in OV> 05/24/241829 DD/ 28 TD/TT: 05/24/241828 Nurseryperson: Reason For Referral Reason trigger finger on [...] Once a day for 30 day(s) Not-Taking Glucosamine Chond Complex/MSM Orally Not-Taking Vitamin D3 2000 UNIT 1 capsule Orally On ce a day Not-Taking Folic Acid 1 mg TAKE 1 TABLET DAILY by mouth daily for 90 days Active clonazePAM 0.5 MG 0.5 tablet at bedtim [...] pt was given the vaccine at the [facility] pharmacy in [facility]. Prevnar 13 IM Intramuscular 12/09/2017 Administered TDaP IM Intramuscular 12/30/2017 Administered pt was given the vaccine at [facility] in [place]. Influenza High Dose IM Intramuscular 03/04/2018 Administer ed pt was given the vaccine at [facility] in [place]. Influenza High Dose IM Intramuscular 02/22/2019 Administer ed Influenza High Dose Unknown 02/18/2020 Administered Bradley rida Shingrix Unknown 05/15/2020 Administered Lot [id number]) EXP 06-30-21 VIS 03-17-[facility] [place] Covid Vaccine Unknown 07/07/2020 Administered Moderna Covid Vaccine Unknown 08/04/2020 Administered Moderna Influenza High Dose IM Intramuscular 02/09/2021 Administer ed SARS-COV-2 Moderna Unknown 11/08/2021 Administered Influenza High Dose IM Intramuscular 02/26/2024 Administer ed Flu Vaccine Unknown 02/08/2014 Pending Shingrix Unknown 03/06/2020 Pending Patient had it in [place] Social History Tobacco Use: Social History Observation [...] W/U Status Risk Notes Problem Thyroid nodule (284415303) Thyroid nodule (E04.1) Active confirmed Problem Neutropenia (658174761) Neutropenia (D70.9) Active confirmed Problem 711318857 Essential tremor (G25.0) Active confirmed Problem 634284349 Gastroesophageal reflux disease without esophagitis (K21.9) Active confirmed Problem 75631845 Essential hypertension (I10) Active confirmed Problem 443405030 Environmental allergies (Z91.09) Active confirmed Problem Parkinson disease (07776477) Parkinson disease (G20) Active confirmed Problem Recurrent falls (952055964) Falls frequently (R29.6) Active confirmed Problem 527255307 Osteopenia of sp ine (M85.88) Active confirmed Problem 249294748 H/O: hysterectom y (Z90.710) Active confirmed Problem 15275998 Aortic atherosclerosis (I70.0) Active confirmed Vital Signs [...] Austin Hughes MD [address] [place] [id number] 10/31/2023 Austin Hughes Blood tests for rout ine general physical examination Z00.00 ; Essential hypertension I10 and Neutropenia D70.9 Austin Hughes MD [address] [place] [address] Drive [address] [place] [id number] 02/26/2024 Austin Hughes Aortic atheroscleros is I70.0 and Encounter for immunization Z23 Austin Hughes MD [address] [place] [id number] 11/07/2023 Austin Hughes Essential hypertensi on I10 ; Annual physical exam Z00.00 ; Parkinson disease G20 ; Palpable abdominal mass R19.00 ; Encounter for screening for malignant neoplasm of colon Z12.11 ; Encounter for screening for malignant neoplasm of rectum Z12.12 ; Depression screening Z13.31 and Parkinson disease, symptomatic G20.A1 Austin Hughes MD [address] [place] [id number] 12/19/2023 Austin Hughes Abdominal wall mass R22.2 ; Aortic atherosclerosis I70.0 and Pre-procedural laboratory examinations Z01.812 Austin Hughes MD [address] [place] [address] Drive [address] [place] [id number] 01/22/2024 Austin Hughes Ventral hernia witho ut obstruction or gangrene K43.9 Austin Hughes MD [address] [place] [address] [id number] 12/19/2023 Austin Hughes MD [address] [place] [id number] 01/22/2024 Austin Hughes MD [address] [place] [address] [id number] 05/27/2024 Austin Hughes MD [address] [place] [id number] 05/30/2024 Austin Hughes MD [address] [place] [id number] 07/06/2024 Austin Hughes Essential hypertensi on I10 Austin Hughes MD [address] [place] [address] [id number] 07/12/2024 Austin Hughes Essential hypertensi on I10 Austin Hughes MD [address] [place] [address] [id number] 07/12/2024 Austin Hughes MD [address] [place] [id number] 08/30/2024 Austin Hughes MD [address] [place] [id number] 09/02/2024 Austin Hughes Assessments Encounter Date Diagnosis (ICD [...] most likely stool. / order faxed to [facility] [place], pending diagnostic testing 11/07/2023 Encounter for screening for malignant neoplasm of colon (ICD-10 - Z12.11) order faxed to [facility] 12/19/2023 Pre-procedural laboratory examinations (ICD-10 - Z01.812) [...] DEXA 01/03/2021 Next Appt Details Provider Name:Austin shipley, 11/05/2024 07:15:00 AM, [address] [place] [address], [address], [place], [place], [phone], Provider Name:Austin Winslow ier, 11/11/2024 09:30:00 AM, [address], [address], [place], [id number], Insurance Providers Payer Name Payer Address Payer Phone Subscriber Number Group Number Insured Name Patient Relationship to Insured Coverage Start Date Coverage End Date [facility] are [employer] [address] [address] [place] [address] [id number] Pankaj Fernandes Self - patient is the insured MEDICARE NHIC THANH [address] [place] [address] [id number] Pankaj Fernandes Self - patient is the [...]
--- OUTSIDE RECORDS SUMMARY | 2024-09-02 14:37 | XMS_ITS | Clinical Summary ---
Author Organization [facility] Facility Address [address] [address] Care Team Providers Care Seismograph Computer Name Role Phone Austin Hughes MD Primary Care Provider [phone] Social History Tobacco Use Types Packs/Day Years [...] to complete this topic Insurance TARIK King22 [facility] [place] [id number] [facility] Care Teams Seismograph Computer Relationship Specialty Start Date End Date Austin Hughes MD [address] [place] [address] [id number] [place], [place] PCP - General Internal Medicine 11/13/21
--- OUTSIDE RECORDS SUMMARY | 2024-09-02 14:37 | XMS_ITS ---
Author Organization Austin Hughes MD Address [address] [place], [place] [id number] Care Team Providers Care Ophthalmic Surgeon Name Role Phone Austin Hughes Primary Care Provider REASON FOR VISIT REFILL FOLIC ACID Medications Medication SIG (Take, Route, Fr equency, Duration) Notes Start Date End Date Status Folic Acid 1 mg TAKE 1 TABLET DAILY Active Encounters Encounter Location Date Provider Diagnosis Austin Hughes MD [address] [place], [place] [id number] 08/30/2024 Austin Hughes Plan Of Treatment Medication Medication Name Sig Start Date Stop Date Notes Folic Acid 1 mg TAKE 1 TABLET DAILY Next Appt Details Provider Name:Austin shipley, 11/05/2024 07:15:00 AM, [address], [address], [place], [place], [phone], Provider Name:Austin shipley, 11/11/2024 09:30:00 AM, [address], [address], [place], [phone], Progress Notes * Pankaj FERNANDES FDOB:[birth year] (79 yo F)Acc No.[id number]:08/30/2024 Patient:?Pankaj FERNANDES :1945???Age:79 Y???Sex:Female Address:[address] [place] [address] [place] [address] * Refills? Refill Folic Acid Tablet, 1 mg, 90 Tablet, TAKE 1 TABLET DAILY, Refills=3 * true * Date:? Generated for Bird ann/Samia/Juanasmitting on:?09/02/2024 02:36 PM EDT
== END 2024-09-01 11:45 | disposition home or self-care (01) ==
LOC: HO.HOSX 11:44
PROVIDERS: Visit Provider Physician Assistant
DX: S82.035D Nondisplaced transverse fracture of left patella, subsequent encounter for closed fracture with routine healing (principal)
CPT/HCPCS: 73560; 99212

== ENCOUNTER 2024-09-01 13:18 | Outpatient (AMB) | payer MEDICARE, SELFPAY ==
--- NOTE | 2024-09-01 13:43 | A.OFFVIS_ITS ---
Intake Visit Reasons: OV-6-8 wk f/u lt patella fx w xrays Intake Note: Pankaj is a 79 year old female who presents today for a follow up of left knee patellar sleeve fracture, DOI 05/24/24. Patient reports that she is doing well, states every now and than she will have a pain in her left knee. States she d/c going on walks due to soreness. She has concerns of twinges in her right knee. States originally she injured both of her knees however her primarily focus was on her left knee. Allergies sulfar Allergy (Severe, Uncoded 09/01/24 13:54) Face swelling HAYFEVER Allergy (Intermediate, Uncoded 09/01/24 13:54) COUGH ITCHY EYES RUNNY NOSE Medication List - Last Reconciled 09/01/24 by Darwin Palacios PA-C atorvastatin 20 mg PO DAILY carbidopa-levodopa 25-100 mg (Sinemet) 1 tab PO TID 90 days cholecalciferol (vitamin D3) 50 mcg PO DAILY folic acid 1 mg PO DAILY xqsacvrd-tnxu-awm5-C-ana-bosw 500-416.6-20 mg tabs PO PRN ibuprofen 800 mg PO Q8H PRN 30 days mecobalamin (vitamin B12) 2,000 mcg sublingual DAILY propranolol ER 80 mg PO DAILY valsartan-hydrochlorothiazide 160-12.5 mg 1 tab PO DAILY HPI HPI OV-6-8 wk f/u lt patella fx w xrays: Details: 79 yo female returns to the office today f/u lt knee patella fx. She is overall doing well. She states since she has increased activity she has noticed some dis comfort in both knees, but it is not limiting. She states the pain was only present for one day after walking. [facility] Medical History Parkinson's disease without dyskinesia Parkinson's disease Folate deficiency Vitamin B12 deficiency Thyroid nodule GERD (gastroesophageal reflux disease) HTN (hypertension) Neutropenia Surgical History History of tonsillectomy H/O: hysterectomy Family History Mother Pancreatic cancer Father Heart disease Social History Alcohol intake: current Alcohol intake frequency: holidays/special occasions only Patient Tobacco Use Status: Former Tobacco user Current occupation: rt handed Review of Systems Const All systems reviewed & are unremarkable except as noted in HPI and below Physical Exam Const General: cooperative and no acute distress Orientation/consciousness: patient oriented x3 Resp Effort & Inspection: normal respiratory effort and able to speak in complete sentences Cardio Peripheral pulses: Peripheral pulses 2+ throughout Neuro General: patient oriented x3 Extrem Other: Left knee normal to inspection. She can fully extend the knee. She can flex to about 90 degrees. No significant tenderness to palpation. Calf supple and nontender neurovascularly intact. Results Reviewed Results Reviewed: Xrays were obtained in the office today and personally reviewed by me of the left knee which show stable patella fracture with interval healing Assessment & Plan Assessment & Plan (1) Left patella fracture: Code(s): S82.002A - Unspecified fracture of left patella, initial encounter for closed fracture Category: Medical Qualifiers: Encounter type: subsequent encounter Fracture alignment: nondisplaced Fracture healing: with routine healing Fracture morphology: transverse Fracture type: closed Qualified Code(s): S82.035D - Nondisplaced transverse fracture of left patella, subsequent encounter for closed fracture with routine healing Plan: She will continue to increase activities as symptoms allow. I recommend she return to walking gradually ie: 20 mins a day if pain free and increase a few mins a day as long as pain free. She is content with this plan and will contact me if there are any concerns, othewise, f/u prn. Orders: Orders XR knee LT 2V Today M25.562 - Pain in left knee Coding Level of Care Code Est Pt Level 3 (56589) Diagnoses Closed nondisplaced transverse fracture of left patella with routine healing, subsequent encounter S82.035D Encounter type: subsequent encounter Fracture alignment: nondisplaced Fracture healing: with routine healing Fracture morphology: transverse Fracture type: closed
--- OUTSIDE RECORDS SUMMARY | 2024-09-01 15:45 | XMS_ITS | Clinical Summary ---
Author Organization [facility] Address [address] [address] Care Team Providers Care Organic Lab Worker Name Role Phone Austin Hughes MD Primary [...] Due Date Last Done Comments Pneumococcal Vaccine: 50+ Ye ars (1 of - PCV) 1997 Influenza Vaccine (Season Ended) 2025 Hepatitis B Vaccine Aged Out No longe r eligible based on patient's age to complete this topic Insurance TARIK [address] [place] [id number] [facility] Care Teams Organic Lab Worker Relationship Specialty Start Date End Date Austin Hughes MD [address] [place] [address] [address] [place], [place] PCP - General Internal Medicine 11/13/21
== END 2024-09-01 13:55 | disposition home or self-care (01) ==
LOC: HO.HOS 13:18
PROVIDERS: Visit Provider Physician Assistant
DX: S82.035D Nondisplaced transverse fracture of left patella, subsequent encounter for closed fracture with routine healing (principal)
CPT/HCPCS: 99213

== ENCOUNTER → 2024-09-01 13:22 | Outpatient (BNV) | payer MEDICARE, SELFPAY | PROVIDERS: Visit Provider Radiology Diagnostic Radiology | DX: S82.002D Unspecified fracture of left patella, subsequent encounter for closed fracture with routine healing (principal) | CPT/HCPCS: 73560 ==

== ENCOUNTER 2024-09-23 14:50 | Outpatient (AMB) | payer MEDICARE, SELFPAY ==
--- NOTE | 2024-09-23 15:08 | A.OFFVIS_ITS ---
Vital Signs 09/23/24 15:09 Height 5 ft 6 in Weight 129 lb BMI 20.8 BP 114/72 Blood Pressure Location Rt brachial Position Sitting Pulse 57 Pulse Source Pulse Oximeter Pulse Oximetry (%) 95 Oxygen Delivery Method Room Air Intake Visit Reasons: follow up tremor-Conf Intake Note: Patient presents for follow up parkinson's disease. OT notes scanned in patient chart 03/03/2024 and 04/07/2024 Allergies sulfar Allergy (Severe, Uncoded 09/23/24 15:10) Face swelling HAYFEVER Allergy (Intermediate, Uncoded 09/23/24 15:10) COUGH ITCHY EYES RUNNY NOSE Medication List - Last Reconciled 09/23/24 by Rose Farrell MD atorvastatin 20 mg PO DAILY carbidopa-levodopa 25-100 mg (Sinemet) 1 tab PO TID 90 days cholecalciferol (vitamin D3) 50 mcg PO DAILY folic acid 1 mg PO DAILY nfhkwzjv-vbhf-qrf9-C-ana-bosw 500-416.6-20 mg tabs PO PRN ibuprofen 800 mg PO Q8H PRN 30 days mecobalamin (vitamin B12) 2,000 mcg sublingual DAILY propranolol ER 80 mg PO DAILY valsartan-hydrochlorothiazide 160-12.5 mg 1 tab PO DAILY HPI Comments Details: 79-yr-old female comes for follow up of Parkinsons disease. No change since last visit.she had 1 fall since her last visit. she parked and got down but turned around to pick something for the car and fell. she hurt her left knee - she is unable to walk 3 miles . she is doing good other sanon.she went on a cruise 8 days and she did well. Initial history-Pt reports that she developed that she has had BUE for some years, very mild such when singing and holding her music. The tremor became more noticeable about 4 yrs, after her passed. She notices a bit of LUE rest tremor, and can also have some shaking in her legs (not sure which leg). She notices the tremor when carrying something, again more so in her LUE. ADL status: Independant Fine-motor skills: Writing and cutting food is ok. Does buttons and zippers ok. Pt reports: Micrographia: No issues Hypophonia: Voice has been hoarser Hyposmia: Never had a good sense of smell Dysphagia: No issues Drooling: Can be during the day or night- not bothersome Orthostatic lightheadedness: No issues Constipation: Sometimes. Does have a remote h/o anal fissures. Tries to take fluids and vegetables. Not using any bowel tx's. Slowness: A little slower- she attributes to age and now living alone Freezing episodes: Never Tremor: as above Stiffness: Some general stiffness Gait changes: A bit slower, can shuffle around the house, may have to pay attention when walking on uneven surfaces such a s a sidewalk Sleep difficulty: She sleeps ok. Her used to tell her she talked and acted out her dreams in her sleep. Memory impairment: No issues Hallucinations: No Usual exercise: Walks most days. If weather is bad, she will walk in the mall. [facility] Medical History Parkinson's disease without dyskinesia Parkinson's disease Folate deficiency Vitamin B12 deficiency Thyroid nodule GERD (gastroesophageal reflux disease) HTN (hypertension) Neutropenia Surgical History History of tonsillectomy H/O: hysterectomy Family History Mother Pancreatic cancer Father Heart disease Social History Alcohol intake: current Alcohol intake frequency: holidays/special occasions only Patient Tobacco Use Status: Former Tobacco user Current occupation: rt handed Physical Exam Vital Signs: Last Vital Signs Pulse 57 09/23/24 15:09 BP 114/72 09/23/24 15:09 Pulse Ox 95 09/23/24 15:09 Oxygen Delivery Method Room Air 09/23/24 15:09 BMI result Body Mass Index 20.8 Const General: cooperative and no acute distress Orientation/consciousness: oriented to person, oriented to place and oriented to time Neuro Other: Expression: Milder decreased blink and facial expression Voice: Mild hoarseness Tremor:mild left Ue tremors at rest intermittent Tone: No appreciable tone Dyskinesia: None FFM: Ok Foot taps: Mildly decreased in LLE Finger-nose- BUE intact Gait: Able to stand w/o using arms, right shoulder drooped, decreased arm swing, LUE tremor w/ hand posturing in hand flexion, steps w/ very low floor clearance, multiple steps to turn. Psych: Pleasant affect. General: oriented to person, oriented to place and oriented to time Coordination: czwbii-jj-awuw test normal Assessment & Plan Assessment & Plan (1) Parkinson's disease without dyskinesia: Code(s): G20.A1 - Parkinson's disease without dyskinesia, without mention of fluctuations Category: Medical Qualifiers: Fluctuating manifestations: without fluctuating manifestations Qualified Code(s): G20.A1 - Parkinson's disease without dyskinesia, without mention of fluctuations Plan Continue Sinemet 1 tab tid - discussed about interaction with protein PT for BIG program Orders: Orders PT Evaluation and Treatment Today G20.A1 - Parkinson's disease without dyskinesia, without mention of fluctuations Coding Level of Care Code Est Pt Level 4 (74745) Complex EM visit Add On G2211 Diagnoses Parkinson's disease without dyskinesia or fluctuating manifestations G20.A1 Fluctuating manifestations: without fluctuating manifestations
[2024-09-23 15:09] VITALS: BP 114/72; PULSE 57; O2SAT 95; BMI 20.8
--- OUTSIDE RECORDS SUMMARY | 2024-09-23 15:29 | XMS_ITS ---
Author Organization Austin Hughes MD Address [address] [place], [place] [phone] Care Team Providers Care Roughener Name Role Phone Austin Hughes Primary Care Provider REASON FOR VISIT REFILL FOLIC ACID Medications Medication SIG (Take, Route, Fr equency, Duration) Notes Start Date End Date Status Folic Acid 1 mg TAKE 1 TABLET DAILY Active Encounters Encounter Location Date Provider Diagnosis Austin Hughes MD [address] [place], [place] [phone] 08/30/2024 Austin Hughes Plan Of Treatment Medication Medication Name Sig Start Date Stop Date Notes Folic Acid 1 mg TAKE 1 TABLET DAILY Next Appt Details Provider Name:Austin shipley, 11/05/2024 07:15:00 AM, [address], [address], [place], [place], [phone], Provider Name:Austin shipley, 11/11/2024 09:30:00 AM, [address], [address], [place], [phone], Progress Notes * Pankaj EFRNANDES FDOB:[birth year] (79 yo F)Acc No.[id number]:08/30/2024 Patient:?Pankaj FERNANDES :1945???Age:79 Y???Sex:Female Address:[address] [place] [address] [place] [address] * Refills? Refill Folic Acid Tablet, 1 mg, 90 Tablet, TAKE 1 TABLET DAILY, Refills=3 * true * Date:? Generated for Bird ann/Samia/Juanasmitting on:?09/23/2024 03:29 PM EDT
--- OUTSIDE RECORDS SUMMARY | 2024-09-23 15:29 | XMS_ITS ---
Author Organization Austin Hughes MD Address [address] [place] [phone] Care Team Providers Care Production Specialist Name Role Phone Austin Hughes Primary Care Provider REASON FOR VISIT RF Folic acid Medications Medication SIG (Take, Route, Fr equency, Duration) Notes Start Date End Date Status Folic Acid 1 mg TAKE 1 TABLET DAILY by mouth daily for 90 days Active Encounters Encounter Location Date Provider Diagnosis Austin Hughes MD [address] [place], [place] [phone] 09/02/2024 Austin Hughes Plan Of Treatment Medication Medication Name Sig Start Date Stop Date Notes Folic Acid 1 mg TAKE 1 TABLET DAILY by mouth daily for 90 days Next Appt Details Provider Name:Austin shipley, 11/05/2024 07:15:00 AM, [address], [address], [place], [place], [phone], Provider Name:Austin shipley, 11/11/2024 09:30:00 AM, [address], [address], [place], [place], [phone], Progress Notes * Pankaj FERNANDES FDOB:[birth year] (79 yo F)Acc No.[id number]:09/02/2024 Patient:?Pankaj FERNANDES :1945???Age:79 Y???Sex:Female Address:[address] [place] [address] * Refills? Refill Folic Acid Tablet, 1 mg, by mouth, 90, TAKE 1 TABLET DAILY, daily, 90 days, Refills=3 * true * Date:? Generated for Bird ann/Samia/Juanasmitting on:?09/23/2024 03:29 PM EDT
--- OUTSIDE RECORDS SUMMARY | 2024-09-23 15:30 | XMS_ITS | Patient Health Record ---
Author Organization Austin Hughes MD Address [address] [place], [place] [phone] Care Team Providers Care Feather Shaper Name Role Phone Austin Hughes Primary Care Provider Allergies Allergen (clinical drug ingredient) Drug/Non Drug Allergy documented on EMR Reaction Allergy Type Onset Date Status Sulfathiazole swelling o f face Drug Allergy Active lactate Ammonium Lactate swelling Drug Allergy Active sumycinGI Upset (uncoded) GI Upset Allergy Active Results Component Value Reference Range Notes Complete Blood Count Auto Di ff Reviewed date:10/31/2023 03:34:21 PM Interpretation: Performing Lab:[facility], [address] [place] [phone] Notes/Report: White Blood Count 3.8 4.8-10.8 X10*3/uL [...] NRBC Abs Auto 0.000 0.0-0.012 X10*3/uL Comprehensive [place]. Panel Fa st Reviewed date:10/31/2023 03:33:57 PM Interpretation: Performing Lab:[facility], [address] [place] [phone] Notes/Report: Sodium 135 135-145 mmol/L Potassium 4.1 3.3-5.1 mmol/L Chloride 97 96-108 mmol/L Carbon Dioxide 32 22-29 mmol/L Anion Gap 10 12-20 Blood Urea Nitrogen 12 9-16 mg/dL Creatinine 0.67 0.5-1.4 mg/dL Estimated Glomerular Filt Rate > 60 NOTE: For -Northern Irish individuals, multiply the result by 1.210. Chronic [...] Panel Reviewed date:10/31/2023 12:30:19 PM Interpretation: Performing Lab:[facility], [address] [place] [phone] Notes/Report: Triglycerides 38 <150 mg/dL Desirable Triglyceride: [...] t Reviewed date:10/31/2023 03:34:45 PM Interpretation: Performing Lab:[facility], [address] [place] [phone] Notes/Report: Urine, Clean Catch Color Urine Yellow Appearance Urine Clear PH 7.5 5.0-9.0 Glucose Urine UA Negative Negative mg/dL Urine Blood Negative Negative Specific [place] - Urine 1.010 1.005-1.025 Urine Protein Negative Neg-Trace mg/dL Urine Ketones Negative Negative mg/dL Nitrite Urine Negative Negative Leukocyte Esterase Urine Trace Negative RBC Urine 0-2 0-2 /HPF WBC Urine 0-5 0-5 /HPF Squamous Epithelial Cell Urine 0-2 0-2 /HPF Bacteria Urine None Seen None Seen Hyaline Casts Urine 0-2 0-2 /LPF Liver Panel Reviewed date:02/26/2024 01:26:41 PM Interpretation: Performing Lab:[facility], [address] [place] [phone] Notes/Report: Bilirubin Total 0.9 0.0-1.0 mg/dL Bilirubin Direct 0.4 0.0-0.5 mg/dL Aspartate Amino Transferase 24 5-31 U/L Alanine Aminotransferase 19 0-31 U/L Total Protein 6.7 6.5-8.0 g/dL Albumin Level 4.3 3.5-5.0 g/dL Alkaline Phosphatase 85 39-117 U/L Lipid Panel with Reflex Reviewed date:02/26/2024 01:27:05 PM Interpretation: Performing Lab:[facility], [address] [place] [phone] Notes/Report: Triglycerides 26 <150 mg/dL Desirable Triglyceride: [...] Nitrogen Reviewed date:12/21/2023 09:35:44 AM Interpretation: Performing Lab:[facility], [address] [place] [phone] Notes/Report: Blood Urea Nitrogen 17 9-16 mg/dL Creatinine Reviewed date:12/21/2023 09:35:35 AM Interpretation: Performing Lab:[facility], [address] [place] [address] Notes/Report: Creatinine 0.70 0.5-1.4 mg/dL Estimated Glomerular Filt Rate > 60 NOTE: For -Northern Irish individuals, multiply the result by 1.210. Chronic Kidney Disease: Estimated GFR < 60 mL/min/1.73m2 Severe Kidney Disease: Estimated GFR < 15 mL/min/1.73m2 US abdomen complete Reviewed date:12/18/2023 07:30:37 AM Interpretation: Performing Lab: Notes/Report: [facility] [address] [place] [address] [place] [address] Ultrasound Report Signed Patient: Pankaj Fernandes MR#: [id number] 875 : 1945 Acct:[id number] Age/Sex: 78 / F ADM Date: 11/18/23 Loc: HO.HMGCX Attending Dr: Austin Hughes MD Ordering Physician: Austin Hughes MD Date of Service: 11/18/23 Procedure(s): US abdomen complete Accession Number(s): [id number] cc: Austin Hughes MD EXAMINATION: US ABDOMEN [...] Targeted ultrasound images were obtained by the national business director of the area of concern as indicated [...] in OV> 12/16/23 1408 DD/ 1010 TD/TT: Flotation Operator: [facility] [place] [address] Ultrasound Report Signed Patient: Mukesh Fernandes MR#: [id number] 875 : 1945 Acct:[id number] Age/Sex: 78 / F ADM Date: 11/18/23 Loc: .HMGCX Attending Dr: Austin Hughes MD Ordering Physician: Austin Hughes MD Date of Service: 11/18/23 Procedure(s): US abd omen complete Accession Number(s): [id number] cc: Austin Hughes MD EXAMINATION: US ABDOMEN [...] Targeted ultrasound images were obtained by the national business director of the a [place] of concern as [...] in OV> 12/16/23 1408 DD/ 1010 TD/TT: Flotation Operator: NATALY Reviewed date:01/23/2024 01:07:54 PM Interpretation:Negative Performing Lab: Notes/Report: Negative Hold Gold Reviewed date:02/26/2024 01:26:49 PM Interpretation: Performing Lab:[facility], [address] [place] [address] Notes/Report: Hold Gold See Note Specimen held untested for 24 hours; Call to request Chemistry testing. MM tomosynthesis screening B I Reviewed date:03/19/2024 12:00:21 PM Interpretation: Performing Lab: Notes/Report: [facility] [address] [place] [address] Mammography Report Signed with Addenda Patient: Pankaj Fernandes MR#: [id number] 875 : 1945 Acct:[id number] Age/Sex: 78 / F ADM Date: 03/05/24 Loc: HO.MAMMO Attending Dr: Austin Hughes MD Ordering Physician: Austin Hughes MD Results: 1Ne gative Date of Service: 03/05/24 Follow Up: 1 Year From Orig ina Mammogram Procedure(s): MM tomosynthesis screening BI Accession Number(s): [id number] cc: Austin Hughes MD ADDENDUM ADDENDUM #1 [...] 03/16/24 1446 DD/ 1012 TD/TT: 03/05/24 1028 Flotation Operator: [facility] [address] [place] [address] Mammography Report Signed with Addenda Patient: Mukesh Fernandes MR#: [id number] 875 : 1945 Acct:[id number] Age/Sex: 78 / F ADM Date: 03/05/24 Loc: HO.MAMMO Attending Dr: Austin Hughes MD Ordering Physician: Austin Hughes MD Results: 1Ne gative Date of Service: Follow Up: 1 Year From [facility] Mammogram Procedure(s): MM tomosynthesis screening BI Accession Number(s): [id number] cc: Austin Hughes MD ADDENDUM ADDENDUM #1 [...] 03/16/24 1446 DD/ 1012 TD/TT: 03/05/24 1028 Flotation Operator: CT cervical spine wo con Reviewed date:05/25/2024 12:45:13 PM Interpretation: Performing Lab: Notes/Report: [address] [address] [address] Scan Report Signed Patient: Pankaj Fernandes MR#: [id number] 875 : 1945 Acct:[id number] Age/Sex: 79 / F ADM Date: 05/24/24 Loc: HO.ED Attending Dr: Ordering Physician: Bradley Bynum Date of Service: 05/24/24 Procedure(s): CT cervical spine wo IV con Accession Number(s): [id number] cc: Bradley Bynum; Austin Hughes MD Report Number: [id number]: Total DLP = 1190.00 mGy-cm CLINICAL HISTORY: [...] in OV> 05/24/241857 DD/ 55 TD/TT: 05/24/241855 Flotation Operator: [place] [address] [place] Scan Report Signed Patient: Mukesh Fernandes MR#: [id number] 875 : 1945 Acct:[id number] Age/Sex: 79 / F ADM Date: 05/24/24 Loc: HO.ED Attending Dr: Ordering Physician: Bradley Bynum Date of Service: 05/24/24 Procedure(s): CT cer vical spine wo IV con Accession Number(s): [id number] cc: Bradley Bynum; Austin Hughes MD Report [...] in OV> 05/24/241857 DD/ 55 TD/TT: 05/24/241855 Flotation Operator: CT head/brain wo con Reviewed date:05/25/2024 12:51:33 PM Interpretation: Performing Lab: Notes/Report: [address] [address] [address] Scan Report Signed Patient: Pankaj Fernandes MR#: [id number] 875 : 1945 Acct:[id number] Age/Sex: 79 / F ADM Date: 05/24/24 Loc: HO.ED Attending Dr: Ordering Physician: Bradley Bynum Date of Service: 05/24/24 Procedure(s): CT head/brain wo IV con Accession Number(s): [id number] cc: Bradley Bynum; Austin Hughes MD Report Number: [id number]: Total DLP = 1190.00 mGy-cm CLINICAL HISTORY: [...] in OV> 05/24/241856 DD/ 55 TD/TT: 05/24/241855 Flotation Operator: [address] [address] [address] Scan Report Signed Patient: Mukesh Fernandes MR#: [id number] 875 : 1945 Acct:[id number] Age/Sex: 79 / F ADM Date: 05/24/24 Loc: .ED Attending Dr: Ordering Physician: Bradley Bynum Date of Service: 05/24/24 Procedure(s): CT head/brain wo IV con Accession Number(s): [id number] cc: Bradley Bynum; Austin Hughes MD Report [...] in OV> 05/24/241856 DD/ 55 TD/TT: 05/24/241855 Flotation Operator: CT facial bones wo con Reviewed date:05/25/2024 12:50:26 PM Interpretation: Performing Lab: Notes/Report: [place] [address] [place] Scan Report Signed Patient: Pankaj Fernandes MR#: [id number] 875 : 1945 Acct:[id number] Age/Sex: 79 / F ADM Date: 05/24/24 Loc: HO.ED Attending Dr: Ordering Physician: Bradley Bynum Date of Service: 05/24/24 Procedure(s): CT facial bones wo IV con Accession Number(s): [id number] cc: Bradley Bynum; Austin Hughes MD Report Number: [id number]: Total DLP = 1190.00 mGy-cm CLINICAL HISTORY: [...] in OV> 05/24/241856 DD/ 55 TD/TT: 05/24/241855 Flotation Operator: [address] [address] [address] Scan Report Signed Patient: Mukesh Fernandes MR#: [id number] 875 : 1945 Acct:[id number] Age/Sex: 79 / F ADM Date: 05/24/24 Loc: HO.ED Attending Dr: Ordering Physician: Bradley Bynum Date of Service: 05/24/24 Procedure(s): CT fac ial bones wo IV con Accession Number(s): [id number] cc: Bradley Bynum; Austin Hughes MD Report [...] in OV> 05/24/241856 DD/ 55 TD/TT: 05/24/241855 Flotation Operator: XR knee LT 4V Reviewed date:05/25/2024 12:52:40 PM Interpretation: Performing Lab: Notes/Report: [address] [address] XRay Report Signed Patient: Pankaj Fernandes MR#: [id number] 875 : 1945 Acct:[id number] Age/Sex: 79 / F ADM Date: 05/24/24 Loc: HO.ED Attending Dr: Ordering Physician: Bradley Bynum Date of Service: 05/24/24 Procedure(s): XR knee LT 4V Accession Number(s): [id number] cc: Bradley Bynum; Austin Hughes MD CLINICAL [...] in OV> 05/24/241829 DD/ 28 TD/TT: 05/24/241828 Flotation Operator: [place] [address] XRay Report Signed Patient: Mukesh Fernandes MR#: [id number] 875 : 1945 Acct:[id number] Age/Sex: 79 / F ADM Date: 05/24/24 Loc: .ED Attending Dr: Ordering Physician: Bradley Bynum Date of Service: 05/24/24 Procedure(s): XR kne e LT 4V Accession Number(s): [id number] cc: Bradley Bynum; Austin Hughes MD CLINICAL [...] in OV> 05/24/241829 DD/ 28 TD/TT: 05/24/241828 Flotation Operator: Reason For Referral Reason trigger finger on [...] pt was given the vaccine at the [facility] pharmacy in [facility]. Prevnar 13 IM Intramuscular 12/09/2017 Administered TDaP IM Intramuscular 12/30/2017 Administered pt was given the vaccine at [facility] in [place]. Influenza High Dose IM Intramuscular 03/04/2018 Administer ed pt was given the vaccine at [facility] in [place]. Influenza High Dose IM Intramuscular 02/22/2019 Administer ed Influenza High Dose Unknown 02/18/2020 Administered Bradley rida Shingrix Unknown 05/15/2020 Administered Lot [id number]) EXP 06-30-21 VIS 03-17-[facility] [place] Covid Vaccine Unknown 07/07/2020 Administered Moderna Covid Vaccine Unknown 08/04/2020 Administered Moderna Influenza High Dose IM Intramuscular 02/09/2021 Administer ed SARS-COV-2 Moderna Unknown 11/08/2021 Administered Influenza High Dose IM Intramuscular 02/26/2024 Administer ed Flu Vaccine Unknown 02/08/2014 Pending Shingrix Unknown 03/06/2020 Pending Patient had it in [place] Social History Tobacco Use: Social History Observation [...] W/U Status Risk Notes Problem Thyroid nodule (076418989) Thyroid nodule (E04.1) Active confirmed Problem Neutropenia (799846626) Neutropenia (D70.9) Active confirmed Problem 349773624 Essential tremor (G25.0) Active confirmed Problem 753216711 Gastroesophageal reflux disease without esophagitis (K21.9) Active confirmed Problem 29469894 Essential hypertension (I10) Active confirmed Problem 898670575 Environmental allergies (Z91.09) Active confirmed Problem Parkinson disease (39369897) Parkinson disease (G20) Active confirmed Problem Recurrent falls (221815963) Falls frequently (R29.6) Active confirmed Problem 927330177 Osteopenia of sp ine (M85.88) Active confirmed Problem 346991123 H/O: hysterectom y (Z90.710) Active confirmed Problem 77162465 Aortic atherosclerosis (I70.0) Active confirmed Vital Signs [...] Austin Hughes MD [address] [place] [id number] 10/31/2023 Austin Hughes Blood tests for rout ine general physical examination Z00.00 ; Essential hypertension I10 and Neutropenia D70.9 Austin Hughes MD [address] [place] [address] Drive [address] [place] [id number] 02/26/2024 Austin Hughes Aortic atheroscleros is I70.0 and Encounter for immunization Z23 Austin Hughes MD [address] [place] [id number] 11/07/2023 Austin Hughes Essential hypertensi on I10 ; Annual physical exam Z00.00 ; Parkinson disease G20 ; Palpable abdominal mass R19.00 ; Encounter for screening for malignant neoplasm of colon Z12.11 ; Encounter for screening for malignant neoplasm of rectum Z12.12 ; Depression screening Z13.31 and Parkinson disease, symptomatic G20.A1 Austin Hughes MD [address] [place] [id number] 12/19/2023 Austin Hughes Abdominal wall mass R22.2 ; Aortic atherosclerosis I70.0 and Pre-procedural laboratory examinations Z01.812 Austin Hughes MD [address] [place] [address] [address] [place] [id number] 01/22/2024 Austin Hughes Ventral hernia witho ut obstruction or gangrene K43.9 Austin Hughes MD [address] [place] [id number] 12/19/2023 Austin Hughes MD [address] [place] [id number] 01/22/2024 Austin Hughes MD [address] [place] [id number] 05/27/2024 Austin Hughes MD [address] [place] [id number] 05/30/2024 Austin Hughes MD [address] [place] [id number] 07/06/2024 Austin Hughes Essential hypertensi on I10 Austin Hughes MD [address] [place] [id number] 07/12/2024 Austin Hughes Essential hypertensi on I10 Austin Hughes MD [address] [place] [id number] 07/12/2024 Austin Hughes MD [address] [place] [id number] 08/30/2024 Austin Hughes MD [address] [place] [id number] 09/02/2024 Austin Hughes Assessments Encounter Date Diagnosis [...] most likely stool. / order faxed to [facility] [place] CS dept, pending diagnostic testing 11/07/2023 Encounter for screening for malignant neoplasm of colon (ICD-10 - Z12.11) order faxed to [facility] 12/19/2023 Pre-procedural laboratory examinations (ICD-10 - Z01.812) [...] Details Provider Name:Austin shipley, 11/05/2024 07:15:00 AM, [address] [place] [address], [address], [place], [place], [phone], Provider Name:Austin Winslow ier, 11/11/2024 09:30:00 AM, [address], [address], [place], [phone], Insurance Providers Payer Name Payer Address Payer Phone Subscriber Number Group Number Insured Name Patient Relationship to Insured Coverage Start Date Coverage End Date [facility] are [employer] [address] [address] [place] [address] [id number] Pankaj Fernandes Self - patient is the insured MEDICARE NHIC TH[employer]H [address] [place] [address] [id number] Pankaj Fernandes Self - patient is the [...]
--- OUTSIDE RECORDS SUMMARY | 2024-09-23 15:30 | XMS_ITS | Clinical Summary ---
Author Organization [facility] Facility Address [address] [address] Care Team Providers Care Top Closer Name Role Phone Austin Hughes MD Primary [...] to complete this topic Insurance TARIK King22 [facility] [place] [id number] [facility] Care Teams Top Closer Relationship Specialty Start Date End Date Austin Hughes MD [address] [place] [address] [address] [place], [place] PCP - General Internal Medicine 11/13/21
--- OUTSIDE RECORDS SUMMARY | 2024-09-23 15:30 | XMS_ITS ---
Author Organization Austin Hughes MD Address [address] [place] [phone] Care Team Providers Care Beveller Operator Name Role Phone Austin Hughes Primary Care Provider REASON FOR VISIT RF Valsartan Medications Medication SIG (Take, Route, Frequency, Duration) Notes Start Date End Date Status Valsartan-hydroCHLOROthiaz lisette 160-12.5 mg TAKE 1 TABLET DAILY oral once a day for 90 days Active Encounters Encounter Location Date Provider Diagnosis Austin Hughes MD [address] [place] [phone] 07/12/2024 Austin Hughes Plan Of Treatment Medication Medication Name Sig Start Date Stop Date Notes Valsartan-hydroCHLOROthiazid e 160-12.5 mg TAKE 1 TABLET DAILY oral once a day for 90 days Next Appt Details Provider Name:Austin Winslow ier, 11/05/2024 07:15:00 AM, [address], [address], [place], [place], [phone], Provider Name:Austin shipley, 11/11/2024 09:30:00 AM, [address], [address], [place], [place], [phone], Progress Notes * Pankaj FERNANDES FDOB:[birth year] (79 yo F)Acc No.[id number]:07/12/2024 Patient:?Pankaj FERNANDES :1945???Age:79 Y???Sex:Female Address:[address] [place] [address] [place] [address] * Refills? Refill Valsartan-hydroCHLOROthiazide Tablet, 160-12.5 mg, oral, 90, TAKE 1 TABLET DAILY, once a day, 90 days, Refills=3 * true * Date:? Generated for Bird ann/Samia/eTransmitting on:?09/23/2024 03:29 PM EDT
== END 2024-09-23 15:30 | disposition home or self-care (01) ==
LOC: HO.HSMS 14:50
PROVIDERS: PCP Internal Medicine; Visit Provider Psychiatry & Neurology Neurology
DX: G20.A1 Parkinson's disease without dyskinesia, without mention of fluctuations (principal)
CPT/HCPCS: 99214; G2211

== ENCOUNTER → 2024-09-23 14:50 | Outpatient (BNVA) | payer MEDICARE, SELFPAY | PROVIDERS: PCP Internal Medicine; Visit Provider Psychiatry & Neurology Neurology | DX: G20.A1 Parkinson's disease without dyskinesia, without mention of fluctuations (principal) | CPT/HCPCS: 99212 ==

== ENCOUNTER 2024-11-05 10:27 | Outpatient (REF) | payer MEDICARE, SELFPAY ==
--- OUTSIDE RECORDS SUMMARY | 2024-08-30 11:00 | XMS_ITS ---
Author Organization Austin Hughes MD Address [address] [place], [place] [phone] Care Team Providers Care Pilot Plant Operator Name Role Phone Austin Hughes Primary Care Provider REASON FOR VISIT REFILL FOLIC ACID Medications Medication SIG (Take, Route, Fr equency, Duration) Notes Start Date End Date Status Folic Acid 1 mg TAKE 1 TABLET DAILY Active Encounters Encounter Location Date Provider Diagnosis Austin Hughes MD [address] [place], [place] [phone] 08/30/2024 Austin Hughes Plan Of Treatment Medication Medication Name Sig Start Date Stop Date Notes Folic Acid 1 mg TAKE 1 TABLET DAILY Next Appt Details Provider Name:Austin shipley, 11/11/2024 09:30:00 AM, [address], [address], [place], [place], [phone], Progress Notes * Panakj FERNANDES FDOB:[birth year] (79 yo F)Acc No.[id number]:08/30/2024 Patient: Pankaj STRINGER :1945 A ge:79 Y S ex:Female Address:[address] [place] [address] * Refills Refill Folic Acid Tablet, 1 mg, 90 Tablet, TAKE 1 TABLET DAILY, Refills=3 * true * Date: Generated for Bird ann/Samia/Cateitting on: 0 11/05/2024 10:47 AM EDT
[2024-11-05 10:30] LABS: MANUAL DIFF FLAG NO
[2024-11-05 10:55] LABS: Basophils Absolute Auto 0.1 X10*3/uL (0.0-0.2); Basophils Percent Auto 1.5 % (0-2); Eosinophils Absolute Auto 0.1 X10*3/uL (0.0-0.4); Eosinophils Percent Auto 2.5 % (0-4); Hemoglobin 12.3 g/dl (12.0-16.0); Imm Gran Abs Auto 0.01 X10*3/uL (0.00-0.03); Imm Gran Pct Auto 0.3 % (0.0-0.4); Lymphocytes Absolute Auto 1.5 X10*3/uL (1.2-4.9); Lymphocytes Percent Auto 38.2 % (20-40); Mean Corpuscular HGB Conc 33.2 g/dl (31.0-35.0); Mean Corpuscular Hemoglobin 32.2 pg (27.0-33.0); Mean Corpuscular Volume 96.9 fL (80.0-98.0); Mean Platelet Volume 9.3 fL (9.4-12.3); Monocytes Absolute Auto 0.3 X10*3/uL (0.1-1.2); Monocytes Percent Auto 8.5 % (2-11); Platelet Count 228 X10*3/uL (160-400); Red Blood Count 3.82 X10*6/uL (4.20-5.50); Red Cell Distribution Width 11.9 % (11.0-16.0)
[2024-11-05 10:58] LABS: Appearance Urine Clear; Color Urine Yellow; Glucose Urine UA Negative (Negative); Leukocyte Esterase Urine Negative (Negative); Nitrite Urine Negative (Negative); Urine Blood Negative (Negative); Urine Ketones Negative (Negative); Urine Protein Negative (Neg-Trace)
[2024-11-05 11:01] LABS: Bacteria Urine None Seen (None Seen); Hyaline Casts Urine 0-2 /LPF (0-2); RBC Urine 0-2 /HPF (0-2); Squamous Epithelial Cell Urine 0-2 /HPF (0-2); WBC Urine 0-5 /HPF (0-5)
[2024-11-05 11:20] LABS: Alanine Aminotransferase 40 U/L (0-31); Albumin Level 4.4 g/dL (3.5-5.0); Alkaline Phosphatase 92 U/L (39-117); Anion Gap 10 (12-20); Aspartate Amino Transferase 30 U/L (5-31); Bilirubin Total 0.8 mg/dL (0.0-1.0); Blood Urea Nitrogen 17 mg/dL (9-16); Calcium 9.4 mg/dL (8.4-10.2); Carbon Dioxide 31 mmol/L (22-29); Chloride 96 mmol/L (96-108); Cholesterol 136 mg/dL (<200); Estimated Glomerular Filt Rate > 60; Glucose Fasting 92 mg/dL (60-99); HDL Cholesterol 68 mg/dL (>40); LDL Cholesterol Calculated 63 mg/dL (<100); Potassium 3.7 mmol/L (3.3-5.1); Sodium 133 mmol/L (135-145); Total Protein 6.9 g/dL (6.5-8.0); Triglycerides 28 mg/dL (<150)
== END 2024-11-05 10:28 | disposition home or self-care (01) ==
LOC: HO.LNP 10:27
PROVIDERS: Visit Provider Internal Medicine
DX: I10 Essential (primary) hypertension (principal); D70.9 Neutropenia, unspecified; Z00.00 Encounter for general adult medical examination without abnormal findings
CPT/HCPCS: 80053; 80061; 81001; 85025

== ENCOUNTER 2024-11-12 13:17 | Outpatient (REF) | payer MEDICARE, SELFPAY ==
--- OUTSIDE RECORDS SUMMARY | 2024-11-11 05:30 | XMS_ITS ---
Author Organization Austin Hughes MD Address [address] [place], [place] [id number] Care Team Providers Care Customer Records Division Supervisor Name Role Phone Austin Hughes Primary [...] Notes/Report: Negative Occult Blood, Stool, Guaiac neg REASON FOR VISIT annual visit Medications Medication [...] Location Date Provider Diagnosis Austin Hughes MD [address] [place] [address] [address] [place] [phone] 11/11/2024 Austin Hughes Annual physical exam Z00.00 [...] screening guaiac negative Depression screening negative screen Pending Test Test Name Order Date XR knee RT 3V 11/11/2024 Next Appt Details Follow Up: 6 Months, Reason: Provider Name:Austin shipley, 05/09/2025 08:00:00 AM, [address] [place] [address], [address], [phone], Provider Name:Austin shipley, 05/16/2025 11:00:00 AM, [address] [place] [address], [address], [phone], Provider Name:Austin shipley, 11/08/2025 07:45:00 AM, [address] [place] [address], [address], [phone], Provider Name:Austin shipley, 11/15/2025 02:30:00 PM, [address] [place] [address], [address], [phone], Progress Notes * Pankaj FERNANDES FDOB:[birth year] (79 yo F)Acc No.[id number]:11/11/2024 Progress Notes Patient: Pankaj STRINGER Provider: Brice Hughes MD DOB:1945 A ge:79 Y S ex:Female Date:11/11/2024 Address:[id number] Subjective: * Chief Complaints: * A nnual [...] went to Urgent Care, [place] [facility] [place] you had two or more [...] 56 yrs. M other: 77 yrs. father, [place] mother, pancreatic [place], Denies mental health/substance abuse [...] affeine: no. Children: no. Community involvements: yes, [employer]. Exercise: no. Home smoke detector use: [...] day Vitamin C 500 MG Capsule Orally Genny Allergy 180MG Tablet TAKE 1 TABLET [...] Auto 0.000 0.0-0.012 - X10*3/uL L ab:Comprehensive [place]. Panel Fast (Order Date - 11/05/2024) (Collection [...] mg/dL Urine Blood Negative Negative - Specific [place] - Urine 1.010 1.005-1.025 - Urine Protein [...] MD Date: 0 11/11/2024 Generated for Bird ann/Samia/Cateitting on: 0 11/12/2024 01:47 PM EDT History and Physical Notes * HPI (History [...] went to Urgent Care, [place] [facility] [place] Have you had two or more falls [...]
--- NOTE | ~2024-11-12 | XR_ITS ---
CLINICAL HISTORY: ACUTE KNEE PAIN Right knee four views Comparison: None provided Findings: No acute fracture or dislocation noted. No significant joint effusion identified. Mild loss of joint space. No soft tissue foreign body. Impression: No acute bony abnormality This document has been electronically signed by: Dayton Perez MD on 11/13/2024 20:39:30
== END 2024-11-12 13:18 | disposition home or self-care (01) ==
LOC: HO.HMGCX 13:17
PROVIDERS: PCP Internal Medicine; Visit Provider Internal Medicine
DX: M25.569 Pain in unspecified knee (principal)
CPT/HCPCS: 73562

== ENCOUNTER → 2024-11-12 14:11 | Outpatient (BNV) | payer MEDICARE, SELFPAY | PROVIDERS: PCP Internal Medicine; Visit Provider Radiology Diagnostic Radiology | DX: M25.561 Pain in right knee (principal) | CPT/HCPCS: 73562 ==

== ENCOUNTER → 2025-03-11 11:00 | Outpatient (BNV) | payer MEDICARE, SELFPAY | PROVIDERS: PCP Internal Medicine; Visit Provider Internal Medicine | DX: Z12.31 Encounter for screening mammogram for malignant neoplasm of breast (principal) | CPT/HCPCS: 77063; 77067 ==

== ENCOUNTER 2025-03-11 11:03 | Outpatient (REF) | payer MEDICARE, SELFPAY ==
--- OUTSIDE RECORDS SUMMARY | 2024-02-26 04:15 | XMS_ITS ---
Author Organization Austin Hughes MD Address [address] [place], [place] [id number] Care Team Providers Care Timber Packer Name Role Phone Austin Hughes Primary Care Provider [phone] Results Component Value Reference Range Notes Liver Panel Reviewed date:02/26/2024 01:26:41 PM Interpretation: Performing Lab:[facility], [address] [place] [phone] Notes/Report: Bilirubin Total 0.9 0.0-1.0 mg/dL Bilirubin Direct 0.4 0.0-0.5 mg/dL Aspartate Amino Transferase 24 5-31 U/L Alanine Aminotransferase 19 0-31 U/L Total Protein 6.7 6.5-8.0 g/dL Albumin Level 4.3 3.5-5.0 g/dL Alkaline Phosphatase 85 39-117 U/L Lipid Panel with Reflex Reviewed date:02/26/2024 01:27:05 PM Interpretation: Performing Lab:[facility], [address] [facility] [facility], [place] [address] Notes/Report: Triglycerides 26 <150 mg/dL Desirable Triglyceride: less than 150 mg/dL Borderline High Triglyceride 150-199 mg/dL High Triglyceride: 200-499 mg/dL Very High Triglyceride: greater than or equal to 5OO mg/dL Cholesterol 119 <200 mg/dL Desirable Cholesterol: less than 200 mg/dL Borderline High Cholesterol: 200-239 mg/dL High Cholesterol: greater than 239 mg/dL LDL Cholesterol Calculated 53 <100 mg/dL Desirable LDL: less than 100 mg/dL Near Optimal/Above Optimal LDL: 110-129 mg/dL Borderline High LDL: 130-159 mg/dL High LDL: 160-189 mg/dL Very High LDL: greater than or equal to 190 mg/dL HDL Cholesterol 61 >40 mg/dL Desirable HDL: greater than 40 mg/dL Note: This HDL assay may give artificially low results in patients with liver disease. REASON FOR VISIT LIVER PANEL, FASTING LIPID PANEL Immunizations Vaccine Route Administration Date Status Comme nts Influenza High Dose IM Intramuscular 02/26/2024 Administer ed Encounters Encounter Location Date Provider Diagnosis Austin Hughes MD [address] [place] [address] [place] [phone] 02/26/2024 Austin Hughes Aortic atheroscleros is I70.0 and Encounter for immunization Z23 Assessments Encounter Date Diagnosis (ICD Code) Assessment Notes Treatment Notes Treatment Clinical Notes Section Notes 02/26/2024 Aortic atherosclerosis (ICD-10 - I70.0) 02/26/2024 Encounter for immunization (ICD-10 - Z23) Plan Of Treatment Next Appt Details Provider Name:Austin shipley, 05/09/2025 08:00:00 AM, [address] [place] [address], [address] [place] [address], [phone], Provider Name:Austin shipley, 05/16/2025 11:00:00 AM, [address] [place] [address], [address] [place] [address], [phone], Provider Name:Austin shipley, 11/08/2025 07:45:00 AM, [address] [place] [address], [address], [phone], Provider Name:Austin Winslow ier, 11/15/2025 02:30:00 PM, [address], [address], [place], [phone], Progress Notes * Pankaj FERNANDES FDOB:[birth year] (79 yo F)Acc No.[id number]:02/26/2024 Progress Note Patient: Pankaj STRINGER Provider: Brice Hughes MD :1945 A ge:78 Y S ex:Female Date:02/26/2024 Address:[address] [place], [place] [phone] Subjective: * Chief Complaints: * 1 . LIVER PANEL, FASTING LIPID PANEL. * Medical History: Objective: * Vitals: Assessment: * Assessment: 1. A ortic atherosclerosis - I70.0 (Primary) 2 . E ncounter for immunization - Z23 Plan: * Treatment: * Immunizations: Influenza High Dose : 0.5 mL (Dose No:1) (Route: Intramuscular) given by Lazara Combs , Office Staff on Left Deltoid * Procedure Codes: 9 0662 FLU VACC PRSV FREE INC ANTIG, 08356 VENIPUNCT, ROUTINE*, G0008 ADMN FLU VAC NO FEE SCHED SAME DAY * * The named appointment provid er may or may not be the originator of this progress note, and it is not deemed complete until electronically signed by the appointment provider. Sign off status: Pending * Provider: Brice Hughes MD Date: Generated for Bird ann/Samia/Juanasmitting on: 01:10 PM EDT
--- OUTSIDE RECORDS SUMMARY | 2024-05-27 07:05 | XMS_ITS ---
Author Organization Austin Hughes MD Address [address] [place] [phone] Care Team Providers Care Rat Breeder Name Role Phone Austin Hughes Primary Care Provider [phone] REASON FOR VISIT ER Encounters Encounter Location Date Provider Diagnosis Austin Hughes MD [address] [place] [address] [place] [phone] 05/27/2024 Austin Hughes Plan Of Treatment Next Appt Details Provider Name:Austin shipley, 05/09/2025 08:00:00 AM, [address] [place] [address], [address], [phone], Provider Name:Austin shipley, 05/16/2025 11:00:00 AM, [address] [place] [address], [address], [phone], Provider Name:Austin Winslow ier, 11/08/2025 07:45:00 AM, [address], [address], [place], [phone], Provider Name:Austin Winslow ier, 11/15/2025 02:30:00 PM, [address], [address], [place], [place], [phone], Progress Notes * Pankaj FERNANDES FDOB:[birth year] (79 yo F)Acc No.[id number]:05/27/2024 Patient: Pankaj Whitt :1945 A ge:79 Y S ex:Female Address:[address] [place], [place] [address] [address] * true * Date: Generated for Bird ann/Samia/eTransmitting on: 01:10 PM EDT
--- OUTSIDE RECORDS SUMMARY | 2024-05-30 15:57 | XMS_ITS ---
Author Organization Austin Hughes MD Address [address] [place] [phone] Care Team Providers Care Integrated Circuit Ic Layout Designer Name Role Phone Austin Hughes Primary Care Provider REASON FOR VISIT ER Encounters Encounter Location Date Provider Diagnosis Austin Hughes MD 10 [facility] [address] [place] [phone] 05/30/2024 Austin Hughes Plan Of Treatment Next Appt Details Provider Name:Austin shipley, 05/09/2025 08:00:00 AM, [address] [place] [address], [address], [phone], Provider Name:Austin shipley, 05/16/2025 11:00:00 AM, [address] [place] [address], [address], [phone], Provider Name:Austin Winslow ier, 11/08/2025 07:45:00 AM, [address], [address], [place], [phone], Provider Name:Austin Winslow ier, 11/15/2025 02:30:00 PM, [address], [address], [place], [phone], Progress Notes * Pankaj FERNANDES FDOB:[birth year] (79 yo F)Acc No.[id number]:05/30/2024 Patient: Pankaj Whitt :1945 A ge:79 Y S ex:Female Address:[address] [place] [address] TARIK Loo [address] * true * Date: Generated for Bird ann/Samia/eTransmitting on: 01:09 PM EDT
--- OUTSIDE RECORDS SUMMARY | 2024-07-06 04:59 | XMS_ITS ---
Author Organization Austin Hughes MD Address [address] [place], [place] [phone] Care Team Providers Care Driver Supervisor Name Role Phone Austin Hughes Primary Care Provider REASON FOR VISIT RF Propranalol 80mg Medications Medication SIG (Take, Route, Frequency, Duration) Notes Start Date End Date Status Propranolol HCl ER 80 mg TAKE 1 CAPSULE DAILY oral once a day for 90 days Active Encounters Encounter Location Date Provider Diagnosis Austin Hughes MD [address] [place], [place] [phone] 07/06/2024 Austin Hughes Essential hypertension I10 Assessments Encounter Date Diagnosis (ICD Code) Assessment Notes Treatment Notes Treatment Clinical Notes Section Notes 07/06/2024 Essential hypertension (ICD-10 - I10) Plan Of Treatment Medication Medication Name Sig Start Date Stop Date Notes Propranolol HCl ER 80 mg TAKE 1 CAPSULE DAILY oral once a day for 90 days Next Appt Details Provider Name:Austin Winslow ier, 05/09/2025 08:00:00 AM, [address], [address], [place], [phone], Provider Name:Austin Winslow ier, 05/16/2025 11:00:00 AM, [address] [place] [address] Drive, [address], [place], [phone], Provider Name:Austin Winslow ier, 11/08/2025 07:45:00 AM, [address] [place] [address] Drive, [address], [place], [phone], Provider Name:Austin Winslow ier, 11/15/2025 02:30:00 PM, [address] [place] [address], [address], [place], [phone], Progress Notes * Pankaj FERNANDES FDOB:[birth year] (79 yo F)Acc No.[id number]:07/06/2024 Patient: Pankaj STRINGER :1945 A ge:79 Y S ex:Female Address:[address] [place] [address] * Refills Refill Propranolol HCl ER Capsule Extended Release 24 Hour, 80 mg, oral, 90, TAKE 1 CAPSULE DAILY, once a day, 90 days, Refills=3 * true * Date: Generated for Bird ann/Samia/Juanasmitting on: 01:11 PM EDT
--- OUTSIDE RECORDS SUMMARY | 2024-07-12 05:19 | XMS_ITS ---
Author Organization Austin Hughes MD Address [address] [place], [place] [phone] Care Team Providers Care It Operations Specialist Name Role Phone Austin Hughes Primary Care Provider REASON FOR VISIT refill Medications Medication SIG (Take, Route, Frequency, Duration) Notes Start Date End Date Status Propranolol HCl ER 80 mg TAKE 1 CAPSULE DAILY oral once a day for 90 days Active Encounters Encounter Location Date Provider Diagnosis Austin Hughes MD [address] [place] [phone] 07/12/2024 Austin Hughes Essential hypertension I10 Assessments [...] Provider Name:Austin Winslow ier, 05/09/2025 08:00:00 AM, [address] [place] [address], [address], [place], [phone], Provider Name:Austin Winslow ier, 05/16/2025 11:00:00 AM, [address] [place] [address], [address], [place], [phone], Provider Name:Austin Winslow ier, 11/08/2025 07:45:00 AM, [address] [place] [address], [address], [place], [phone], Provider Name:Austin Winslow ier, 11/15/2025 02:30:00 PM, [address] [place] [address], Suite [facility], [place], [phone], Progress Notes * Pankaj FERNANDES FDOB:[birth year] (79 yo F)Acc No.[id number]:07/12/2024 Patient: Andre FLORPankaj PALOMARES :1945 A ge:79 Y S ex:Female Address:[address] [place] [address] * Refills Refill Propranolol HCl ER Capsule Extended Release 24 Hour, 80 mg, oral, 90, TAKE 1 CAPSULE DAILY, once a day, 90 days, Refills=3 * true * Date: Generated for Bird ann/Samia/Cateitting on: 01:09 PM EDT
--- OUTSIDE RECORDS SUMMARY | 2024-07-12 10:44 | XMS_ITS ---
Author Organization Austin Hughes MD Address [address] [place] [phone] Care Team Providers Care Rent And Miscellaneous Remittance Clerk Name Role Phone Austin Hughes Primary Care Provider REASON FOR VISIT RF Valsartan Medications Medication SIG (Take, Route, Frequency, Duration) Notes Start Date End Date Status Valsartan-hydroCHLOROthiaz lisette 160-12.5 mg TAKE 1 TABLET DAILY oral once a day for 90 days Active Encounters Encounter Location Date Provider Diagnosis Austin Hughes MD [address] [place] [phone] 07/12/2024 Austin Hughes Plan Of Treatment Medication Medication Name Sig Start Date Stop Date Notes Valsartan-hydroCHLOROthiazid e 160-12.5 mg TAKE 1 TABLET DAILY oral once a day for 90 days Next Appt Details Provider Name:Austin Winslow ier, 05/09/2025 08:00:00 AM, [address] [place] [address] Drive, [address], [place], [place], [phone], Provider Name:Austin Winslow ier, 05/16/2025 11:00:00 AM, [address] [place] [address], [address], [place], [phone], Provider Name:Austin Winslow ier, 11/08/2025 07:45:00 AM, [address] [place] [address], [address], [place], [phone], Provider Name:Austin Winslow ier, 11/15/2025 02:30:00 PM, [address] [place] [address], Suite [facility], [place], [phone], Progress Notes * Pankaj FERNANDES FDOB:[birth year] (79 yo F)Acc No.[id number]:07/12/2024 Patient: Pankaj STRINGER :1945 A ge:79 Y S ex:Female Address:[address] [place] [address] * Refills Refill Valsartan-hydroCHLOROthiazide Tablet, 160-12.5 mg, oral, 90, TAKE 1 TABLET DAILY, once a day, 90 days, Refills=3 * true * Date: Generated for Bird ann/Samia/eTjemalsmitting on: 01:11 PM EDT
--- OUTSIDE RECORDS SUMMARY | 2024-08-30 11:00 | XMS_ITS ---
Author Organization Austin Hughes MD Address [address] [place], [place] [phone] Care Team Providers Care Quality Systems Engineer Name Role Phone Austin Hughes Primary Care Provider [phone] REASON FOR VISIT REFILL FOLIC ACID Medications Medication SIG (Take, Route, Fr equency, Duration) Notes Start Date End Date Status Folic Acid 1 mg TAKE 1 TABLET DAILY Active Encounters Encounter Location Date Provider Diagnosis Austin Hughes MD [address] [place], [place] [phone] 08/30/2024 Austin Hughes Plan Of Treatment Medication Medication Name Sig Start Date Stop Date Notes Folic Acid 1 mg TAKE 1 TABLET DAILY Next Appt Details Provider Name:Austin shipley, 05/09/2025 08:00:00 AM, [address], [address], [place], [place], [phone], Provider Name:Austin Winslow ier, 05/16/2025 11:00:00 AM, [address] [place] [address] Drive, [address], [place], [place], [phone], Provider Name:Austin Winslow ier, 11/08/2025 07:45:00 AM, [address] [place] [address], [address], [place], [place], [phone], Provider Name:Austin Winslow ier, 11/15/2025 02:30:00 PM, [address] [place] [address], Suite [facility], [place], [place], [phone], Progress Notes * Pankaj FERNANDES FDOB:[birth year] (79 yo F)Acc No.[id number]:08/30/2024 Patient: Pankaj STRINGER :1945 A ge:79 Y S ex:Female Address:[address] [place] [address] [place] [address] * Refills Refill Folic Acid Tablet, 1 mg, 90 Tablet, TAKE 1 TABLET DAILY, Refills=3 * true * Date: Generated for Bird ann/Samia/Cateitting on: 01:09 PM EDT
--- OUTSIDE RECORDS SUMMARY | 2024-09-02 05:30 | XMS_ITS ---
Author Organization Austin Hughes MD Address [address] [place] [phone] Care Team Providers Care Food Manager Name Role Phone Austin Hughes Primary Care Provider REASON FOR VISIT RF Folic acid Medications Medication SIG (Take, Route, Fr equency, Duration) Notes Start Date End Date Status Folic Acid 1 mg TAKE 1 TABLET DAILY by mouth daily for 90 days Active Encounters Encounter Location Date Provider Diagnosis Austin Hughes MD [address] [place], [place] [phone] 09/02/2024 Austin Hughes Plan Of Treatment Medication Medication Name Sig Start Date Stop Date Notes Folic Acid 1 mg TAKE 1 TABLET DAILY by mouth daily for 90 days Next Appt Details Provider Name:Austin lawr, 05/09/2025 08:00:00 AM, [address], [address], [place], [place], [phone], Provider Name:Austin Winslow ier, 05/16/2025 11:00:00 AM, [address], [address], [place], [phone], Provider Name:Austin Winslow ier, 11/08/2025 07:45:00 AM, [address] [place] [address], [address], [place], [phone], Provider Name:Austin Winslow ier, 11/15/2025 02:30:00 PM, [address] [place] [address], [address], [place], [phone], Progress Notes * Pankaj FERNANDES FDOB:[birth year] (79 yo F)Acc No.[id number]:09/02/2024 Patient: Pankaj STRINGER :1945 A ge:79 Y S ex:Female Address:[address] [place] [address] * Refills Refill Folic Acid Tablet, 1 mg, by mouth, 90, TAKE 1 TABLET DAILY, daily, 90 days, Refills=3 * true * Date: Generated for Bird ann/Samia/Cateitting on: 01:09 PM EDT
--- OUTSIDE RECORDS SUMMARY | 2024-11-05 03:15 | XMS_ITS ---
Author Organization Austin Hughes MD Address [address] [place], [place] [id number] Care Team Providers Care Web Offset Press Feeder Name Role Phone Austin Hughes Primary Care Provider [phone] Results Component Value Reference Range Notes Complete Blood Count Auto Di ff Reviewed date:11/09/2024 12:23:37 PM Interpretation: Performing Lab:[facility], [address] [place] [phone] Notes/Report: White Blood Count 4.0 4.8-10.8 X10*3/uL [...] NRBC Abs Auto 0.000 0.0-0.012 X10*3/uL Comprehensive [place]. Panel Fa st Reviewed date:11/09/2024 12:24:21 PM Interpretation: Performing Lab:[facility], [address] [place] [phone] Notes/Report: Sodium 133 135-145 mmol/L Potassium 3.7 [...] Panel Reviewed date:11/05/2024 04:35:26 PM Interpretation: Performing Lab:[facility], [address] [place] [phone] Notes/Report: Triglycerides 28 <150 mg/dL Desirable Triglyceride: [...] t Reviewed date:11/09/2024 05:30:10 PM Interpretation: Performing Lab:[facility], [address] [place] [phone] Notes/Report: Urine, Clean Catch Color Urine Yellow Appearance Urine Clear PH 7.0 5.0-9.0 Glucose Urine UA Negative Negative mg/dL Urine Blood Negative Negative Specific [place] - Urine 1.010 1.005-1.025 Urine Protein Negative [...] Date Provider Diagnosis Austin Hughes MD [address] [place], [place] [phone] 11/05/2024 Austin Huhges Blood tests for routine general physical examination Z00.00 ; Essential hypertension I10 and Neutropenia D70.9 Assessments Encounter Date Diagnosis (ICD Code) Assessment Notes Treatment Notes Treatment Clinical Notes Section Notes 11/05/2024 Blood tests for routine general physical examination (ICD-10 - Z00.00) 11/05/2024 Essential hypertension (ICD-10 - I10) 11/05/2024 Neutropenia (ICD-10 - D70.9) Plan Of Treatment Next Appt Details Provider Name:Austin Winslow ier, 05/09/2025 08:00:00 AM, [address], [address] [facility], [place], [place], [phone], Provider Name:Austin Winslow ier, 05/16/2025 11:00:00 AM, [address] [place] [address], [address] [facility], [place], [place], [phone], Provider Name:Austin Keagan Goldy ier, 11/08/2025 07:45:00 AM, [address] [place] [address], [address] [facility], [place], [place], [phone], Provider Name:Austin Keagan Balderramaamanda ier, 11/15/2025 02:30:00 PM, [address] [place] [address], [address] [facility], [place], [place], [phone], Progress Notes * Pankaj FERNANDES FDOB:[birth year] (79 yo F)Acc No.[id number]:11/05/2024 Progress Note Patient: Pankaj STRINGER Provider: Brice Hughes MD :1945 A ge:79 Y S ex:Female Date:11/05/2024 Address:[address] [place], [place] [address] [id number] Subjective: * Chief Complaints: * 1 . [...] - 11/05/2024 07:15 AM) L AB: Comprehensive [place]. Panel Fast (Collection Date & Time - 11/05/2024 07:15 AM) L AB: Lipid Panel (Collection Date & Time - 11/05/2024 07:15 AM) L AB: UA ClnCatch+Micro w/rflx Cult (Collection Date & Time - 11/05/2024 07:15 AM) 3. N eutropenia L AB: Complete Blood Count Auto Diff (Collection Date & Time - 11/05/2024 07:15 AM) L AB: Comprehensive [place]. Panel Fast (Collection Date & Time - [...] MD Date: 0 11/05/2024 Generated for Bird ann/Samia/Mckay on: 1 01:10 PM EDT
--- OUTSIDE RECORDS SUMMARY | 2024-11-11 05:30 | XMS_ITS ---
Author Organization Austin Hughes MD Address [address] [place], [place] [id number] Care Team Providers Care Echo Vascular Technologist Name Role Phone Austin Hughes Primary Care [...] date:11/16/2024 12:49:18 PM Interpretation: Performing Lab: Notes/Report: [facility] Adult Primary Care [facility] [place] [address] XRay Report Signed Patient: Pankaj Fernandes MR#: [id number] 875 : 1945 Acct:[id number] Age/Sex: 79 / F ADM Date: 11/12/24 Loc: .HMGCX Attending Dr: Austin Hughes MD Ordering Physician: Austin Hughes MD Date of Service: 11/12/24 Procedure(s): XR knee RT 3V Accession Number(s): [id number] cc: Austin Hughes MD CLINICAL HISTORY: ACUTE [...] in OV> 11/13/242039 DD/ 38 TD/TT: 11/13/242038 Reference And Instruction Librarian: [facility] Adult Primary Care [address] [place] [address] [place] [address] XRay Report Signed Patient: Mukesh Fernandes MR#: [id number] 875 : 1945 Acct:[id number] Age/Sex: 79 / F ADM Date: 11/12/24 Loc: .HMGCX Attending Dr: Austin Hughes MD Ordering Physician: Austin Hughes MD Date of Service: 11/12/24 Procedure(s): XR knee RT 3V Accession Number(s): [id number] cc: Austin Hughes MD CLINICAL HISTORY: AC [...] in OV> 11/13/242039 DD/ 38 TD/TT: 11/13/242038 Reference And Instruction Librarian: REASON FOR VISIT annual visit Medications Medication [...] Location Date Provider Diagnosis Austin Hughes MD [address] [place] [id number] 11/11/2024 Austin Hughes Annual physical exam Z00.00 [...] Reason: Provider Name:Austin shipley, 05/09/2025 08:00:00 AM, [address] [place] [address], [address], [phone], Provider Name:Austin shipley, 05/16/2025 11:00:00 AM, [address] [place] [address], [address], [phone], Provider Name:Austin shipley, 11/08/2025 07:45:00 AM, [address] [place] [address], [address], [phone], Provider Name:Austin shipley, 11/15/2025 02:30:00 PM, [address] [place] [address], [address], [phone], Progress Notes * Pankaj FERNANDES FDOB:[birth year] (79 yo F)Acc No.[id number]:11/11/2024 Progress Notes Patient: Pankaj STRINGER Provider: Brice Hughes MD :1945 A ge:79 Y S ex:Female Date:11/11/2024 Address:[address] [place] [address] [facility] Subjective: * Chief Complaints: * A nnual [...] went to Urgent Care, was sent to [facility], [address] you had two or more [...] 56 yrs. M other: 79 yrs. father, [place] mother, pancreatic CA, Denies mental health/substance abuse [...] affeine: no. Children: no. Community involvements: yes, [employer]. Exercise: no. Home smoke detector use: [...] Auto 0.000 0.0-0.012 - X10*3/uL L ab:Comprehensive [place]. Panel Fast (Order Date - 11/05/2024) (Collection [...] mg/dL Urine Blood Negative Negative - Specific [place] - Urine 1.010 1.005-1.025 - Urine Protein [...] 0 11/11/2024 Generated for Bird ann/Samia/Cateitting on: 1 01:09 PM EDT History and Physical Notes * [...] went to Urgent Care, was sent to [facility] Have you had two or more falls [...] exam intact SKIN: warm and dry, no meilnda picious lesions EXTREMITIES: no clubbing, cyanosi s, or edema BREASTS: No mass, no lump RECTAL EXAM: no masses palpable, stool guaiac negative FEMALE GENITOURINARY: not done ORAL CAVITY: mucosa moist
--- NOTE | ~2025-03-11 | MM_ITS ---
EXAMINATION: MM SCREENING DIGITAL BREAST TOMOSYNTHESIS, BILATERAL CLINICAL INFORMATION: Screening. Asymptomatic. COMPARISON: Mammography: Comparison is made with available priors TECHNIQUE: Digital breast mammography with tomosynthesis is performed in both the craniocaudal and mediolateral oblique views along with computer-aided detection (CAD). FINDINGS: There are scattered areas of fibroglandular density. There are no significant masses, abnormal calcifications, or other abnormalities. MM/MM tomosynthesis screening BI IMPRESSION: No mammographic evidence of malignancy. ASSESSMENT: BI-RADS Category 1: Negative RECOMMENDATION: Routine annual mammography screening. 1 year F/U This examination should not preclude the clinical evaluation of a suspicious palpable abnormality. This patient's information was entered into a reminder system with a target due date for their next mammogram. Electronically signed by: Santa Mccauley DO 03/14/2025 05:02 PM EDT
--- OUTSIDE RECORDS SUMMARY | 2025-03-11 13:10 | XMS_ITS | Patient Health Record ---
Author Organization Austin Hughes MD Address [address] [place], [place] [address] Care Team Providers Care Associate Programmer Analyst Name Role Phone Austin Hughes Primary Care Provider [phone] Allergies Allergen (clinical drug ingredient) Drug/Non Drug Allergy documented on EMR Reaction Allergy Type Onset Date Status Sulfathiazole swelling o f face Drug Allergy Active lactate Ammonium Lactate swelling Drug Allergy Active sumycinGI Upset (uncoded) GI Upset Allergy Active Results Component Value Reference Range Notes Complete Blood Count Auto Di ff Reviewed date:11/09/2024 12:23:37 PM Interpretation: Performing Lab:[facility], [address] [place] [phone] Notes/Report: White Blood Count 4.0 4.8-10.8 X10*3/uL [...] 0.00-0.03 X10*3/uL Lymphocytes Absolute Auto 1.5 1.2-4.9 X10*3/uL Monocytes Absolute Auto 0.3 0.1-1.2 X10*3/uL Eosinophils Absolute Auto 0.1 0.0-0.4 X10*3/uL Basophils Absolute Auto 0.1 0.0-0.2 X10*3/uL NRBC Abs Auto 0.000 0.0-0.012 X10*3/uL Comprehensive [place]. Panel Fa st Reviewed date:11/09/2024 12:24:21 PM Interpretation: Performing Lab:[facility], [address] [place] [phone] Notes/Report: Sodium 133 135-145 mmol/L Potassium 3.7 [...] Panel Reviewed date:11/05/2024 04:35:26 PM Interpretation: Performing Lab:[address] [address] Notes/Report: Triglycerides 28 <150 mg/dL Desirable Triglyceride: [...] t Reviewed date:11/09/2024 05:30:10 PM Interpretation: Performing Lab:[address] [phone] Notes/Report: Urine, Clean Catch Color Urine Yellow Appearance Urine Clear PH 7.0 5.0-9.0 Glucose Urine UA Negative Negative mg/dL Urine Blood Negative Negative Specific [place] - Urine 1.010 1.005-1.025 Urine Protein Negative Neg-Trace mg/dL Urine Ketones Negative Negative mg/dL Nitrite Urine Negative Negative Leukocyte Esterase Urine Negative Negative RBC Urine 0-2 0-2 /HPF WBC Urine 0-5 0-5 /HPF Squamous Epithelial Cell Urine 0-2 0-2 /HPF Bacteria Urine None Seen None Seen Hyaline Casts Urine 0-2 0-2 /LPF Occult Blood, Stool, Guaiac Reviewed date:11/11/2024 11:46:40 AM Interpretation:Negative Performing Lab: Notes/Report: Negative Occult Blood, Stool, Guaiac neg XR knee RT 3V Reviewed date:11/16/2024 12:49:18 PM Interpretation: Performing Lab: Notes/Report: [facility] [address] [place] [address] [place] [address] XRay Report Signed Patient: Pankaj Fernandes MR#: [id number] 875 : 1945 Acct:[id number] Age/Sex: 79 / F ADM Date: 11/12/24 Loc: [facility] Dr: Austin Hughes MD Ordering Physician: Austin Hughes MD Date of Service: 11/12/24 Procedure(s): XR knee RT 3V Accession Number(s): [id number] cc: Austin Hughes MD CLINICAL HISTORY: ACUTE [...] in OV> 11/13/242039 DD/ 38 TD/TT: 11/13/242038 Registry Np: [facility] Primary [address] [place] [address] XRay Report Signed Patient: Mukesh Fernandes MR#: [id number] 875 : 1945 Acct:[id number] Age/Sex: 79 / F ADM Date: 11/12/24 Loc: [facility] Dr: Austin Hughes MD Ordering Physician: Austin Hughes MD Date of Service: 11/12/24 Procedure(s): XR kne e RT 3V Accession Number(s): [id number] cc: Austin Hughes MD CLINICAL HISTORY: AC AKHIOK KNEE PAIN Right knee four views Comparison: None provided Findings: No acute fracture or dislocation noted. No significant joint effusion identified. Mild loss of joint space. No soft tissue forei gn body. Impression: No acute bony abnormality This document has be en electronically signed by: Dayton Perez MD on 11/13/2024 20:39:30 Dictated By: Dayton Perez MD Signed By: <Electronically signed by Dayton Perez MD in OV> 11/13/242039 DD/ 38 TD/TT: 11/13/242038 Registry Np: CT cervical spine wo con Reviewed date:05/25/2024 12:45:13 PM Interpretation: Performing Lab: Notes/Report: [address] [address] [address] Scan Report Signed Patient: Pankaj Fernandes MR#: [id number] 875 : 1945 Acct:[id number] Age/Sex: 79 / F ADM Date: 05/24/24 Loc: HO.ED Attending Dr: Ordering Physician: Bradley Bynum Date of Service: 05/24/24 Procedure(s): CT cervical spine wo IV con Accession Number(s): [id number] cc: Bradley Bynum; Austin Hughes MD Report Number: [id number]: Total DLP = 1190.00 mGy-cm CLINICAL HISTORY: [...] in OV> 05/24/241857 DD/ 55 TD/TT: 05/24/241855 Registry Np: [address] [address] [address] Scan Report Signed Patient: Mukesh Fernandes MR#: [id number] 875 : 1945 Acct:[id number] Age/Sex: 79 / F ADM Date: 05/24/24 Loc: HO.ED Attending Dr: Ordering Physician: Bradley Bynum Date of Service: 05/24/24 Procedure(s): CT cer vical spine wo IV con Accession Number(s): [id number] cc: Bradley Bynum; Austin Hughes MD Report [...] in OV> 05/24/241857 DD/ 55 TD/TT: 05/24/241855 Registry Np: CT head/brain wo con Reviewed date:05/25/2024 12:51:33 PM Interpretation: Performing Lab: Notes/Report: [place] [address] [address] Scan Report Signed Patient: Pankaj Fernandes MR#: [id number] 875 : 1945 Acct:[id number] Age/Sex: 79 / F ADM Date: 05/24/24 Loc: HO.ED Attending Dr: Ordering Physician: Bradley Bynum Date of Service: 05/24/24 Procedure(s): CT head/brain wo IV con Accession Number(s): [id number] cc: Bradley Bynum; Austin Hughes MD Report Number: [id number]: Total DLP = 1190.00 mGy-cm CLINICAL HISTORY: [...] in OV> 05/24/241856 DD/ 55 TD/TT: 05/24/241855 Registry Np: [address] [address] [address] Scan Report Signed Patient: Mukesh Fernandes MR#: [id number] 875 : 1945 Acct:[id number] Age/Sex: 79 / F ADM Date: 05/24/24 Loc: HO.ED Attending Dr: Ordering Physician: Bradley Bynum Date of Service: 05/24/24 Procedure(s): CT head/brain wo IV con Accession Number(s): [id number] cc: Bradley Bynum; Austin Hughes MD Report [...] in OV> 05/24/241856 DD/ 55 TD/TT: 05/24/241855 Registry Np: CT facial bones wo con Reviewed date:05/25/2024 12:50:26 PM Interpretation: Performing Lab: Notes/Report: [address] [address] [address] Scan Report Signed Patient: Pankaj Fernandes MR#: [id number] 875 : 1945 Acct:[id number] Age/Sex: 79 / F ADM Date: 05/24/24 Loc: HO.ED Attending Dr: Ordering Physician: Bradley Bynum Date of Service: 05/24/24 Procedure(s): CT facial bones wo IV con Accession Number(s): [id number] cc: Bradley Bynum; Austin Hughes MD Report Number: [id number]: Total DLP = 1190.00 mGy-cm CLINICAL HISTORY: [...] in OV> 05/24/241856 DD/ 55 TD/TT: 05/24/241855 Registry Np: [address] [address] [address] Scan Report Signed Patient: Mukesh Fernandes MR#: [id number] 875 : 1945 Acct:[id number] Age/Sex: 79 / F ADM Date: 05/24/24 Loc: HO.ED Attending Dr: Ordering Physician: Bradley Bynum Date of Service: 05/24/24 Procedure(s): CT fac ial bones wo IV con Accession Number(s): [id number] cc: Bradley Bynum; Austin Hughes MD Report [...] in OV> 05/24/241856 DD/ 55 TD/TT: 05/24/241855 Registry Np: XR knee LT 4V Reviewed date:05/25/2024 12:52:40 PM Interpretation: Performing Lab: Notes/Report: [address] [address] XRay Report Signed Patient: Pankaj Fernandes MR#: [id number] 875 : 1945 Acct:[id number] Age/Sex: 79 / F ADM Date: 05/24/24 Loc: HO.ED Attending Dr: Ordering Physician: Bradley Bynum Date of Service: 05/24/24 Procedure(s): XR knee LT 4V Accession Number(s): [id number] cc: Bradley Bynum; Austin Hughes MD CLINICAL [...] in OV> 05/24/241829 DD/ 28 TD/TT: 05/24/241828 Registry Np: [address] [address] XRay Report Signed Patient: Mukesh Fernandes MR#: [id number] 875 : 1945 Acct:[id number] Age/Sex: 79 / F ADM Date: 05/24/24 Loc: HO.ED Attending Dr: Ordering Physician: Bradley Bynum Date of Service: 05/24/24 Procedure(s): XR kne e LT 4V Accession Number(s): [id number] cc: Bradley Bynum; Austin Hughes MD CLINICAL [...] in OV> 05/24/241829 DD/ 28 TD/TT: 05/24/241828 Registry Np: Darryl Arriaga Reviewed date:11/05/2024 04:34:59 PM Interpretation: Performing Lab:[facility], [address] [place] [phone] Notes/Report: Darryl Arriaga See Note Specimen held untested for 24 hours; Call to request Chemistry testing. Reason For Referral No Information Medications Medication SIG (Take, Route, Frequency, Duration) Notes Start Date End Date Status clonazePAM 0.5 MG 0.5 tablet at bedtim e Orally Once a day Not-Taking Glucosamine Chond Complex/MSM Orally Not-Taking Vitamin D3 2000 UNIT 1 capsule Orally On ce a day Not-Taking Atorvastatin Calcium 20 MG TAKE 1 TABLET DAILY for 90 Active Vitamin C 500 MG Orally Not -Taking Genny Allergy 180MG TAKE 1 TABLET DAILY Not-Taking Vitamin B12 1000 MCG 1 tablet Orally Onc e a day for 30 day(s) Active Flonase 50 MCG/ACT 1 spray in each nost ril Nasally Once a day for 30 day(s) Not-Taking Carbidopa-Levodopa 25-100 MG 1 tablet as needed Orally Three times a day Active Valsartan-hydroCHLOROthia zide 160-12.5 MG TAKE 1 TABLET DAILY for 90 Active Propranolol HCl ER 80 mg TAKE 1 CAPSULE DAILY oral once a day for 90 days Active Folic Acid 1 mg TAKE 1 TABLET DAILY by mouth daily for 90 days Active Immunizations Vaccine Route Administration Date Status Comme nts Flu Vaccine IM Intramuscular 02/12/2011 Administered Flu Vaccine IM Intramuscular 02/05/2012 Administered [facility] IM Intramuscular 02/16/2013 Administered Flu Vaccine IM Intramuscular 02/08/2013 [facility]ered [facility] [place] PPSV23 (Pnemovax) IM Intramuscular 02/25/2013 Administered Fluarix Quadrivalent IM Intramuscular 02/08/2014 Administe red Flu Vaccine Unknown 02/15/2015 Administered [facility] Fluarix Quadrivalent IM Intramuscular 02/19/2016 Administe red PPSV23 (Pnemovax) IM Intramuscular 04/04/2016 Administered pt was given the vaccine at the [facility] pharmacy in [facility]. Prevnar 13 IM Intramuscular 12/09/2017 Administered TDaP IM Intramuscular 12/30/2017 Administered pt was given the vaccine at [facility]. Influenza High Dose IM Intramuscular 03/04/2018 Administer ed pt was given the vaccine at [facility]. Influenza High Dose IM Intramuscular 02/22/2019 Administer ed Influenza High Dose Unknown 02/18/2020 Administered Bradley rida Shingrix Unknown 05/15/2020 Administered Lot [id number]) EXP 06-30-21 VIS 03-17-19[facility] [place] Covid Vaccine Unknown 07/07/2020 Administered Moderna Covid Vaccine Unknown 08/04/2020 Administered Moderna Influenza High Dose IM Intramuscular 02/09/2021 Administer ed SARS-COV-2 Moderna Unknown 11/08/2021 Administered Influenza High Dose IM Intramuscular 02/26/2024 Administer ed Flu Vaccine Unknown 02/08/2014 Pending Shingrix Unknown 03/06/2020 Pending Patient had it in [place] Social History Tobacco Use: Social History Observation [...] Never (0 point) Points 1 Interpretation Negative Problems Problem Type SNOMED Code ICD Code Onset Dates Problem Status W/U Status Risk Notes Problem Thyroid nodule (987349216) Thyroid nodule (E04.1) Active confirmed Problem Neutropenia (340165439) Neutropenia (D70.9) Active confirmed Problem 677274006 Essential tremor (G25.0) Active confirmed Problem 036919603 Gastroesophageal reflux disease without esophagitis (K21.9) Active confirmed Problem 65182568 Essential hypertension (I10) Active confirmed Problem 239665244 Environmental allergies (Z91.09) Active confirmed Problem Parkinson disease (36656341) Parkinson disease (G20) Active confirmed Problem Recurrent falls (258403726) Falls frequently (R29.6) Active confirmed Problem 357432786 Osteopenia of sp ine (M85.88) Active confirmed Problem 140779475 H/O: hysterectom y (Z90.710) Active confirmed Problem 65622029 Aortic atherosclerosis (I70.0) Active confirmed Vital Signs Blood pressure diastolic 80 mm Hg 11/11/2024 Height 65 in 11/11/2024 Blood pressure systolic 132 mm Hg 11/11/2024 Weight 132 lbs 11/11/2024 BMI 21.96 kg/m2 11/11/2024 Encounters Encounter Location Date Provider Diagnosis Austin Hughes MD [address] [place] [id number] 11/05/2024 Austin Hughes Blood tests for routine general physical examination Z00.00 ; Essential hypertension I10 and Neutropenia D70.9 Austin Hughes MD [address] [place] [address] [address] [place] [id number] 11/11/2024 Austin Hughes Annual physical exam Z00.00 ; Knee pain, acute M25.569 ; Essential hypertension I10 ; Colon cancer screening Z12.11 and Depression screening Z13.31 Austin Hughes MD [address] [place] [id number] 05/27/2024 Austin Hughes MD [address] [place] [id number] 05/30/2024 Austin Hughes MD [address] [place] [id number] 07/06/2024 Austin Hughes Essential hypertension I10 Austin Hughes MD [address] [place] [id number] 07/12/2024 Austin Hughes Essential hypertension I10 Austin Hughes MD [address] [place] [id number] 07/12/2024 Austin Hughes MD [address] [place] [id number] 08/30/2024 Austin Hughes MD [address] [place] [id number] 09/02/2024 Austin Hughes Assessments Encounter Date Diagnosis (ICD Code) Assessment Notes Treatment Notes Treatment Clinical Notes Section Notes 11/05/2024 Blood tests for routine general physical examination (ICD-10 - Z00.00) 11/11/2024 Annual physical exam (ICD-10 - Z00.00) labs reviewed and discussed with patient 11/11/2024 Knee pain, acute (ICD-10 - M25.569) THE ORDER WAS PRINTED AND GIVEN TO PATIENT, pending diagnostic testing 07/06/2024 Essential hypertension (ICD-10 - I10) 07/12/2024 Essential hypertension (ICD-10 - I10) 11/05/2024 Essential hypertension (ICD-10 - I10) 11/11/2024 Essential hypertension (ICD-10 - I10) well controlled, will continue current regiment 11/05/2024 Neutropenia (ICD-10 - D70.9) 11/11/2024 Colon cancer screening (ICD-10 - Z12.11) guaiac negative 11/11/2024 Depression screening (ICD-10 - Z13.31) negative screen Plan Of Treatment Pending Test Test Name Order Date Electrocardiogram (EKG) 02/13/2017 Electrocardiogram (EKG) 02/13/2018 MAMMOGRAM DIGITAL BILATERAL SCREEN 04/08 US ABD 11/07/2023 CT abdomen pelvis wo/w con 12/19/2023 MM screening mammo BI 03/23/2021 MM diagnostic mammo BI 03/22/2021 Future Test Test Name Order Date BONE DENSITY DEXA 01/03/2021 Next Appt Details Provider Name:Austin Winslow ier, 05/09/2025 08:00:00 AM, [address] [place] [address], [address], [place], [phone], Provider Name:Austin Winslow ier, 05/16/2025 11:00:00 AM, [address] [place] [address], [address], [place], [phone], Provider Name:Austin Winslow ier, 11/08/2025 07:45:00 AM, [address] [place] [address], [address], [place], [phone], Provider Name:Austin Winslow ier, 11/15/2025 02:30:00 PM, [address] [place] [address], Suite [facility], [place], [phone], Insurance Providers Payer Name Payer Address Payer Phone Subscriber Number Group Number Insured Name Patient Relationship to Insured Coverage Start Date Coverage End Date [facility] are [employer] [address] [address] [place] [address] [id number] Pankaj Fernandes Self - patient is the insured MEDICARE [employer] [address] [place] [phone] [id number] Pankaj Fernandes Self - patient is the [...]
--- OUTSIDE RECORDS SUMMARY | 2025-03-11 13:10 | XMS_ITS | Clinical Summary ---
Author Organization [facility] Address [address] [place] [address] Phone Care Team Providers Care Wine Fermenter Name Role Phone Austin Hughes MD Primary Care Provider Medications carbidopa-levod opa (SINEMET) 25-100 mg per tabletIndicatio ns:Parkinson's disease Take 1 tablet by mouth 2 (two) times a day. 180 tablet 3 01/13/2023 Active valsartan-hydro CHLOROthiazide (DIOVAN-HCT) 160-12.5 mg per tablet Take 1 tablet by mouth daily. Active propranoloL (INDERAL LA) 80 mg 24 hr capsule Take 80 mg by mouth daily. Active pantoprazole (PROTONIX) 40 MG tablet Take 40 mg by mouth daily. Active cholecalciferol (VITAMIN D3) 400 unit tablet Take 400 Units by mouth daily. Active cyanocobalamin, vitamin B-12, 1000 MCG tablet Take 2,000 mcg by mouth daily. Active glucosamine-cho ndroitin 500-400 mg Cap Take 1 capsule by mouth 3 (three) times a day. Active Social History Tobacco Use Types Packs/Day Years Used Date Smoking Tobacco: Never Assessed Education Answer Date Recorded Are you interested in more education? Not on mitzi e 09/12/2022 Are you concerned about learning? Not on file 09/12/2022 No 09/12/2022 No 09/12/2022 Digital Access Answer Date Recorded No 10/14/2022 No 10/14/2022 No 10/14/2022 Reliable internet access at home? Not on file 10/14/2022 Device with a working camera? Not on file Comments Unknown Sex and Gender Information Value Date Recorded Sex Assigned at Female 12/26/2022 2:23 PM EDT Legal Sex Female 7:27 PM EST Gender Identity Female 12/26/2022 2:23 PM EDT Sexual Orientation Straight 12/26/2022 2: 23 PM EDT Plan of Treatment Health Maintenance Due Date Last Done Comments CREATININE LEVEL 1945 LIPID PANEL 1945 POTASSIUM LEVEL 1945 DEPRESSION SCREENING 1959 SMOKING Hx and SMOKELESS TOBACCO SCREENING 1960 HEPATITIS C SCREENING 1965 OSTEOPOROSIS SCREENING INITIAL (ONE-TIME) 2012 ZOSTER VACCINES (2 of 2) 07/10/2020 05/15/2020 INFLUENZA VACCINE (#1) 2024 , 02/05/2022, 02/09/2021, Additional history exists COVID-19 VACCINE ( season) 2025 02/13/2023, 02/05/2022, 11/08/2021 Adult Td,Tdap Booster 12/31/2027 12/30/2017 RSV VACCINE Completed 01/30/2023 PNEUMOCOCCAL VACCINES (50+ years) Completed 02/13/2023, 12/09/2017, 04/04/2016 HEPATITIS A VACCINES Aged Out No long er eligible based on patient's age to complete this topic HIB VACCINES Aged Out No longer eligi ble based on patient's age to complete this topic MENINGOCOCCAL VACCINES (ACWY) Aged Out No longer eligible based on patient's age to complete this topic MENINGOCOCCAL VACCINES (B) Aged Out N o longer eligible based on patient's age to complete this topic Medical Devices Not on file Insurance [facility] MEDICARE REPLACEMENT [facility] MEDICARE REPLACEMENT [facility] MEDICARE REPLACEMENT [facility] MEDICARE REPLACEMENT [facility] MEDICARE REPLACEMENT [facility] MEDICARE REPLACEMENT Care Teams Wine Fermenter Relationship Specialty Start Date End Date Austin Hughes MD [address] [place] [address] [place] [address] PCP - General Internal Medicine 12/26/22 Additional Source Comments The information contained in this document represents components of the legal health record. It is not the complete legal health record.[facility]
--- OUTSIDE RECORDS SUMMARY | 2025-03-11 13:10 | XMS_ITS | Patient Health Record ---
Author Organization [facility] Address [address] [place] [address] Care Team Providers Care Draw Press Operator Name Role Phone Ellen SHERWOOD, Austin Primary Care Provider Lucio Martin Jr Reason For Referral No Information Medications Medication SIG (Take, Route, Frequency, Duration) Notes Start Date End Date Status Allergy & Sinus Intense St 25-10-650 MG 1 Orally prn Active Vitamin C 500 MG 1 tablet Orally Once a day Active Glucosamine Chondr 1500 Complx 1 1 Orally BID Active Vitamin D3 2000 UNIT 1 capsule Orally On ce a day Active Valsartan-hydroCHLOROthiazi de 320-12.5 MG 1 tablet Orally Once a day Active Immunizations Vaccine Route Administration Date Status Comme nts Flu vaccine no Preserv 3 and > Unknown 02/28/2015 Admin istered Problems Problem Type SNOMED Code ICD Code Onset Dates Problem Status W/U Status Risk Notes Problem Hypertension (59522014) Hypertension (I10) Active confirmed Problem Rectal pain (77643929) Rectal pain (K62.89) Active confirmed Plan Of Treatment No Information Insurance Providers Payer Name Payer Address Payer Phone Subscriber Number Group Number Insured Name Patient Relationship to Insured Coverage Start Date Coverage End Date MED[place]ARE OF [place] [address] [place] [address] [phone] [id number] TALON GIMENEZ Self - patient is the insured [facility] [address] [place], [place] [id number] [phone] [id number] TALON GIMENEZ Self - patient is the insured Medical (General) History Medical History History ICD Code colonoscopy 10-13-2009 seasonal allergic rhinitis hypertension Surgical History Surgery Date(Month/Year) hysterectomy tonsillectomy
--- OUTSIDE RECORDS SUMMARY | 2025-03-11 13:10 | XMS_ITS | Clinical Summary ---
Author Organization [facility] Facility Address [address] [address] Care Team Providers Care Casino Attendant Name Role Phone Austin Hughes MD Primary [...] Pneumococcal Vaccine: 50+ Ye ars (1 of 1 - PCV) 1997 Influenza Vaccine (#1) 2025 Hepatitis B Vaccine Aged Out No longe r eligible based on patient's age to complete this topic Insurance TARIK King22 [facility] [place] [address] [facility] Care Teams Casino Attendant Relationship Specialty Start Date End Date Austin Hughes MD [address] [place] [address] [id number] [place], [place] PCP - General Internal Medicine 11/13/21
--- OUTSIDE RECORDS SUMMARY | 2025-03-11 13:11 | XMS_ITS | Patient Health Record ---
Author Organization [facility] Address [address] [facility] [address] Care Team Providers Care Warranty Coordinator Name Role Phone Austin Hughes MD Primary Care Provider Jennifer Sher Unavailable [phone] Reason For Referral No Information Medications Medication SIG (Take, Route, Fr equency, Duration) Notes Start Date End Date Status Genny Allergy 180 MG 1 tablet Orally p rn; Duration: 30 day(s) Active Diovan HCT 80-12.5 MG 1 tablet Orally On ce a day; Duration: 30 day(s) Active Problems Problem Type SNOMED Code ICD Code Onset Dates Problem Status W/U Status Risk Notes Problem Edema (37952153) Edema (782.3) Active confirmed Problem Pain in limb (44794202) Pain in Limb (729.5) Active confirmed Problem Stress fracture (25932091) Stress fx (733.94) Active confirmed Plan Of Treatment Pending Test Test Name Order Date Tc99 3 phase Bone Scan 10/01/2012 X ray : Foot, right 3V 10/01/2012 X ray : Foot, right 3V 10/29/2012 X ray : Foot, right 3V 11/30/2012 Insurance Providers Payer Name Payer Address Payer Phone Subscriber Number Group Number Insured Name Patient Relationship to Insured Coverage Start Date Coverage End Date Medicare [facility] [address] [place] [phone] [id number] Pankaj Fernandes Self - patient is the insured [address] [place] [address] All Others [address] [place] [address] [id number] Pankaj Fernandes Self - patient is the insured Medical (General) History Medical History History ICD Code back, hip, knee pain broken bones high blood pressure chronic sinusitis mumps chicken pox Surgical History Surgery Date(Month/Year) hysterectomy tonsillectomy gingavectomy
== END 2025-03-11 11:04 | disposition home or self-care (01) ==
LOC: HO.MAMMO 11:03
PROVIDERS: PCP Internal Medicine; Visit Provider Internal Medicine
DX: Z12.31 Encounter for screening mammogram for malignant neoplasm of breast (principal)
CPT/HCPCS: 77063; 77067

== ENCOUNTER 2025-03-28 11:04 | Outpatient (AMB) | payer MEDICARE, SELFPAY ==
--- NOTE | 2025-03-28 11:08 | MHC.OFFVIS ---
Vital Signs 03/28/25 11:10 Height 5 ft 6 in Weight 132 lb 8 oz BMI 21.4 BP 138/84 Blood Pressure Location Rt brachial Position Sitting Pulse 64 Pulse Source Palpation Intake Visit Reasons: follow up tremor-Conf Intake Note: Follow up Parkinson's disease without dyskinesia, without mention of fluctuations Press Assistant Required: No Accompanied by: Self / Same As Patient Allergies sulfar Allergy (Severe, Uncoded 03/28/25 11:09) Face swelling HAYFEVER Allergy (Intermediate, Uncoded 09/23/24 15:10) COUGH ITCHY EYES RUNNY NOSE HPI Comments Details: 79-yr-old female comes for follow up of Parkinsons disease.she is doing Ok . Mild worsening of her tremors .she had 2 fall since her last visit. Her knee is feeling better she is doing good . she falls outside.she has a cane but did not use. Initial history-Pt reports that she developed that she has had BUE for some years, very mild such when singing and holding her music. The tremor became more noticeable about 4 yrs, after her passed. She notices a bit of LUE rest tremor, and can also have some shaking in her legs (not sure which leg). She notices the tremor when carrying something, again more so in her LUE. ADL status: Independant Fine-motor skills: Writing and cutting food is ok. Does buttons and zippers ok. Pt reports: Micrographia: No issues Hypophonia: Voice has been hoarser Hyposmia: Never had a good sense of smell Dysphagia: No issues Drooling: Can be during the day or night- not bothersome Orthostatic lightheadedness: No issues Constipation: Sometimes. Does have a remote h/o anal fissures. Tries to take fluids and vegetables. Not using any bowel tx's. Slowness: A little slower- she attributes to age and now living alone Freezing episodes: Never Tremor: as above Stiffness: Some general stiffness Gait changes: A bit slower, can shuffle around the house, may have to pay attention when walking on uneven surfaces such a s a sidewalk Sleep difficulty: She sleeps ok. Her used to tell her she talked and acted out her dreams in her sleep. Memory impairment: No issues Hallucinations: No Usual exercise: Walks most days. If weather is bad, she will walk in the mall. [facility] Medical History Parkinson's disease without dyskinesia Parkinson's disease Folate deficiency Vitamin B12 deficiency Thyroid nodule GERD (gastroesophageal reflux disease) HTN (hypertension) Neutropenia Surgical History History of tonsillectomy H/O: hysterectomy Family History Mother Pancreatic cancer Father Heart disease Social History Alcohol intake: current Alcohol intake frequency: holidays/special occasions only Patient Tobacco Use Status: Former Tobacco user Current occupation: rt handed Physical Exam Vital Signs: Last Vital Signs Pulse 64 03/28/25 11:10 BP 138/84 03/28/25 11:10 BMI result Body Mass Index 21.4 Const General: cooperative and no acute distress Orientation/consciousness: oriented to person, oriented to place and oriented to time Neuro Other: Expression: Milder decreased blink and facial expression Voice: Mild hoarseness Tremor:mild left Ue tremors at rest intermittent Tone: No appreciable tone Dyskinesia: None FFM: Ok Foot taps: Mildly decreased in LLE Finger-nose- BUE intact Gait: Able to stand w/o using arms, right shoulder drooped, decreased arm swing, LUE tremor w/ hand posturing in hand flexion, steps w/ very low floor clearance, multiple steps to turn. Psych: Pleasant affect. General: oriented to person, oriented to place and oriented to time Coordination: gicupf-ds-yunn test normal Assessment & Plan Assessment & Plan (1) Parkinson's disease without dyskinesia: Code(s): G20.A1 - Parkinson's disease without dyskinesia, without mention of fluctuations Category: Medical Plan Continue Sinemet 1 tab tid - discussed about interaction with protein use cane regularly Coding Level of Care Code Est Pt Level 4 (77821) Complex EM visit Add On G2211 Diagnoses Parkinson's disease without dyskinesia G20.A1
[2025-03-28 11:10] VITALS: BP 138/84; PULSE 64; BMI 21.4
--- OUTSIDE RECORDS SUMMARY | 2025-03-28 13:28 | XMS_ITS | Clinical Summary ---
Author Organization [facility] Address [address] [place] [address] Phone Care Team Providers Care Supervisor Cytogenetic Laboratory Name Role Phone Austin Hughes MD Primary [...] topic Medical Devices Not on file Insurance [facility] MEDICARE REPLACEMENT [facility] MEDICARE REPLACEMENT [facility] MEDICARE REPLACEMENT [facility] MEDICARE [facility]PLACEMENT [facility] MEDICARE REPLACEMENT [facility] MEDICARE REPLACEMENT Care Teams Supervisor Cytogenetic Laboratory Relationship Specialty Start Date End Date Austin Hughes MD [address] [place] [address] [place] [address] PCP - General Internal Medicine 12/26/22 Additional Source Comments The information contained in this document represents components of the legal health record. It is not the complete legal health record.[facility]
--- OUTSIDE RECORDS SUMMARY | 2025-03-28 13:28 | XMS_ITS | Clinical Summary ---
Author Organization [facility] Facility Address [address] [address] Care Team Providers Care Industrial Truck Mechanic Name Role Phone Austin Hguhes MD Primary Care Provider Social History Tobacco [...] to complete this topic Insurance TARIK King22 [facility] [place] [id number] [facility] Care Teams Industrial Truck Mechanic Relationship Specialty Start Date End Date Austin Hughes MD [address] [place] [address] [id number] [place], [place] PCP - General Internal Medicine 11/13/21
== END 2025-03-28 11:36 | disposition home or self-care (01) ==
LOC: HO.HSMS 11:05
PROVIDERS: PCP Internal Medicine; Visit Provider Psychiatry & Neurology Neurology
DX: G20.A1 Parkinson's disease without dyskinesia, without mention of fluctuations (principal)
CPT/HCPCS: 99214; G2211

== ENCOUNTER → 2025-03-28 11:04 | Outpatient (BNVA) | payer MEDICARE, SELFPAY | PROVIDERS: PCP Internal Medicine; Visit Provider Psychiatry & Neurology Neurology | DX: G20.A1 Parkinson's disease without dyskinesia, without mention of fluctuations (principal); Z91.81 History of falling | CPT/HCPCS: 99212 ==

== ENCOUNTER 2025-05-09 11:25 | Outpatient (REF) | payer MEDICARE, SELFPAY ==
--- OUTSIDE RECORDS SUMMARY | 2024-05-27 06:05 | XMS_ITS ---
Author Organization Austin Hughes MD Address [address] [place] [phone] Care Team Providers Care Bedspread Inspector Name Role Phone Austin Hughes Primary Care Provider REASON FOR VISIT ER Encounters Encounter Location Date Provider Diagnosis Austin Hughes MD [address] [facility] [address] [place] [phone] 05/27/2024 Austin Hughes Plan Of Treatment Next Appt Details Provider Name:Austin shipley, 05/16/2025 11:00:00 AM, [address] [place] [address], [address], [phone], Provider Name:Austin shipley, 11/08/2025 07:45:00 AM, [address] [place] [address], [address], [phone], Provider Name:Austin Winslow ier, 11/15/2025 02:30:00 PM, [address], [address], [place], [phone], Progress Notes * Pankaj FERNANDES FDOB:[birth year] (79 yo F)Acc No.[id number]:05/27/2024 Patient: Pankaj Whitt :1945 A ge:79 Y S ex:Female Address:[address] [place], [place] [address] [address] * true * Date: Generated for Bird ann/Samia/Cateitting on: 07/10/2024 02:38 PM EST
--- OUTSIDE RECORDS SUMMARY | 2024-05-30 14:57 | XMS_ITS ---
Author Organization Austin Hughes MD Address [address] [place] [phone] Care Team Providers Care Marine Engine Machinist Name Role Phone Austin Hughes Primary Care Provider REASON FOR VISIT ER Encounters Encounter Location Date Provider Diagnosis Austin Hughes MD [address] [facility] [address] [place] [phone] 05/30/2024 Austin Hughes Plan Of Treatment Next Appt Details Provider Name:Austin shipley, 05/16/2025 11:00:00 AM, [address] [place] [address], [address], [phone], Provider Name:Austin shipley, 11/08/2025 07:45:00 AM, [address] [place] [address], [address], [phone], Provider Name:Austin Winslow ier, 11/15/2025 02:30:00 PM, [address] [facility] [address], [address], [place], [phone], Progress Notes * Pankaj FERNANDES FDOB:[birth year] (79 yo F)Acc No.[id number]:05/30/2024 Patient: Pankaj Whitt :1945 A ge:79 Y S ex:Female Address:[address] [place], [place] [address] [address] * true * Date: Generated for Bird ann/Samia/Cateitting on: 07/10/2024 02:37 PM EST
--- OUTSIDE RECORDS SUMMARY | 2024-07-06 03:59 | XMS_ITS ---
Author Organization Austin Hughes MD Address [address] [place], [place] [phone] Care Team Providers Care Negative Turner Name Role Phone Austin Hughes Primary Care Provider REASON FOR VISIT RF Propranalol 80mg Medications Medication SIG (Take, Route, Frequency, Duration) Notes Start Date End Date Status Propranolol HCl ER 80 mg TAKE 1 CAPSULE DAILY oral once a day for 90 days Active Encounters Encounter Location Date Provider Diagnosis Austin Hughes MD [address] [place], [place] [phone] 07/06/2024 Austin Hughes Essential hypertension I10 Assessments Encounter Date Diagnosis (ICD Code) Assessment Notes Treatment Notes Treatment Clinical Notes Section Notes 07/06/2024 Essential hypertension (ICD-10 - I10) Plan Of Treatment Medication Medication Name Sig Start Date Stop Date Notes Propranolol HCl ER 80 mg TAKE 1 CAPSULE DAILY oral once a day for 90 days Next Appt Details Provider Name:Austin Winslow ier, 05/16/2025 11:00:00 AM, [address], [address], [place], [phone], Provider Name:Austin Winslow ier, 11/08/2025 07:45:00 AM, [address] [facility] [address], [address], [place], [phone], Provider Name:Austin Winslow ier, 11/15/2025 02:30:00 PM, [address], [address], [place], [phone], Progress Notes * Pankaj FERNANDES FDOB:[birth year] (79 yo F)Acc No.[id number]:07/06/2024 Patient: Pankaj STRINGER :1945 A ge:79 Y S ex:Female Address:[address] [place] [address] [place] [address] * Refills Refill Propranolol HCl ER Capsule Extended Release 24 Hour, 80 mg, oral, 90, TAKE 1 CAPSULE DAILY, once a day, 90 days, Refills=3 * true * Date: Generated for Bird ann/Samia/Cateitting on: 07/10/2024 02:38 PM EST
--- OUTSIDE RECORDS SUMMARY | 2024-07-12 04:19 | XMS_ITS ---
Author Organization Austin Hughes MD Address [address] [place], [place] [phone] Care Team Providers Care Manufacturing Assembler Name Role Phone Austin Hughes Primary Care Provider REASON FOR VISIT refill Medications Medication SIG (Take, Route, Frequency, Duration) Notes Start Date End Date Status Propranolol HCl ER 80 mg TAKE 1 CAPSULE DAILY oral once a day for 90 days Active Encounters Encounter Location Date Provider Diagnosis Austin Hughes MD [address] [place] [phone] 07/12/2024 Austin Hughes Essential hypertension I10 Assessments Encounter Date Diagnosis (ICD Code) Assessment Notes Treatment Notes Treatment Clinical Notes Section Notes 07/12/2024 Essential hypertension (ICD-10 - I10) Plan Of Treatment Medication Medication Name Sig Start Date Stop Date Notes Propranolol HCl ER 80 mg TAKE 1 CAPSULE DAILY oral once a day for 90 days Next Appt Details Provider Name:Austin Winslow ier, 05/16/2025 11:00:00 AM, [address], [address], [place], [place], [phone], Provider Name:Austin Winslow ier, 11/08/2025 07:45:00 AM, [address] [facility] [address], [address], [place], [phone], Provider Name:Austin Winslow ier, 11/15/2025 02:30:00 PM, [address] [place] [address] Drive, [address], [place], [phone], Progress Notes * PERNELLPankaj GERBER FDOB:[birth year] (79 yo F)Acc No.[id number]:07/12/2024 Patient: Pankaj STRINGER :1945 A ge:79 Y S ex:Female Address:[address] [place] [address] * Refills Refill Propranolol HCl ER Capsule Extended Release 24 Hour, 80 mg, oral, 90, TAKE 1 CAPSULE DAILY, once a day, 90 days, Refills=3 * true * Date: Generated for Bird ann/Samia/Cateitting on: 07/10/2024 02:37 PM EST
--- OUTSIDE RECORDS SUMMARY | 2024-07-12 09:44 | XMS_ITS ---
Author Organization Austin Hughes MD Address [address] [place] [phone] Care Team Providers Care Order Control Clerk Blood Bank Name Role Phone Austin Hughes Primary Care Provider REASON FOR VISIT RF Valsartan Medications Medication SIG (Take, Route, Frequency, Duration) Notes Start Date End Date Status Valsartan-hydroCHLOROthiaz lisette 160-12.5 mg TAKE 1 TABLET DAILY oral once a day for 90 days Active Encounters Encounter Location Date Provider Diagnosis Austin Hughes MD [address] [place] [phone] 07/12/2024 Austin Hughes Plan Of Treatment Medication Medication Name Sig Start Date Stop Date Notes Valsartan-hydroCHLOROthiazid e 160-12.5 mg TAKE 1 TABLET DAILY oral once a day for 90 days Next Appt Details Provider Name:Austin Winslow ier, 05/16/2025 11:00:00 AM, [facility], [address], [place], [place], [phone], Provider Name:Austin Winslow quinten, 11/08/2025 07:45:00 AM, [address] [facility], [address], [place], [phone], Provider Name:Austin Winslow quinten, 11/15/2025 02:30:00 PM, [address] [place] [address], Suite [facility], [place], [phone], Progress Notes * Pankaj FERNANDES FDOB:[birth year] (79 yo F)Acc No.[id number]:07/12/2024 Patient: Pankaj STRINGER :1945 A ge:79 Y S ex:Female Address:[address] [place] [address] * Refills Refill Valsartan-hydroCHLOROthiazide Tablet, 160-12.5 mg, oral, 90, TAKE 1 TABLET DAILY, once a day, 90 days, Refills=3 * true * Date: Generated for Bird ann/Samia/Cateitting on: 07/10/2024 02:38 PM EST
--- OUTSIDE RECORDS SUMMARY | 2024-08-30 10:00 | XMS_ITS ---
Author Organization Austin Hughes MD Address [address] [place], [place] [phone] Care Team Providers Care Financial Coach Name Role Phone Austin Hughes Primary Care Provider REASON FOR VISIT REFILL FOLIC ACID Medications Medication SIG (Take, Route, Fr equency, Duration) Notes Start Date End Date Status Folic Acid 1 mg TAKE 1 TABLET DAILY Active Encounters Encounter Location Date Provider Diagnosis Austin Hughes MD [address] [place], [place] [phone] 08/30/2024 Austin Hughes Plan Of Treatment Medication Medication Name Sig Start Date Stop Date Notes Folic Acid 1 mg TAKE 1 TABLET DAILY Next Appt Details Provider Name:Austin shipley, 05/16/2025 11:00:00 AM, [address], [address], [place], [place], [phone], Provider Name:Austin Winslow ier, 11/08/2025 07:45:00 AM, [address], [address], [place], [phone], Provider Name:Austin Winslow ier, 11/15/2025 02:30:00 PM, [address], [address], [place], [place], [phone], Progress Notes * Pankaj FERNANDES FDOB:[birth year] (79 yo F)Acc No.[id number]:08/30/2024 Patient: Pankaj STRINGER :1945 A ge:79 Y S ex:Female Address:[address] [place] [address] * Refills Refill Folic Acid Tablet, 1 mg, 90 Tablet, TAKE 1 TABLET DAILY, Refills=3 * true * Date: Generated for Bird ann/Samia/Juanasmitting on: 07/10/2024 02:36 PM EST
--- OUTSIDE RECORDS SUMMARY | 2024-09-02 04:30 | XMS_ITS ---
Author Organization Austin Hughes MD Address [address] [place] [phone] Care Team Providers Care Vp Publisher Development Name Role Phone Austin Hughes Primary Care Provider [phone] REASON FOR VISIT RF Folic acid Medications Medication SIG (Take, Route, Fr equency, Duration) Notes Start Date End Date Status Folic Acid 1 mg TAKE 1 TABLET DAILY by mouth daily for 90 days Active Encounters Encounter Location Date Provider Diagnosis Austin Hughes MD [address] [place], [place] [phone] 09/02/2024 Austin Hughes Plan Of Treatment Medication Medication Name Sig Start Date Stop Date Notes Folic Acid 1 mg TAKE 1 TABLET DAILY by mouth daily for 90 days Next Appt Details Provider Name:Austin shipley, 05/16/2025 11:00:00 AM, [address], [address], [place], [place], [phone], Provider Name:Austin Winslow ier, 11/08/2025 07:45:00 AM, [address], [address], [place], [phone], Provider Name:Austin Winslow ier, 11/15/2025 02:30:00 PM, [address], [address], [place], [place], [phone], Progress Notes * Pankaj FERNANDES FDOB:[birth year] (79 yo F)Acc No.[id number]:09/02/2024 Patient: Pankaj STRINGER :1945 A ge:79 Y S ex:Female Address:[address] [place] [address] * Refills Refill Folic Acid Tablet, 1 mg, by mouth, 90, TAKE 1 TABLET DAILY, daily, 90 days, Refills=3 * true * Date: Generated for Bird ann/Samia/Juanasmitting on: 1 07/10/2024 02:37 PM EST
--- OUTSIDE RECORDS SUMMARY | 2024-11-05 02:15 | XMS_ITS ---
Author Organization Austin Hughes MD Address [address] [place], [place] [id number] Care Team Providers Care Dealer Accounts Investigator Name Role Phone Austin Hughes Primary Care Provider Results Component Value Reference Range Notes Complete Blood Count Auto Di ff Reviewed date:11/09/2024 12:23:37 PM Interpretation: Performing Lab:[facility], [address] [place] [phone] Notes/Report: White Blood Count 4.0 4.8-10.8 X10*3/uL Red Blood Count 3.82 4.20-5.50 X10*6/uL Hemoglobin 12.3 12.0-16.0 g/dl Hematocrit 37.0 37.0-47.0 % Mean Corpuscular Volume 96.9 80.0-98.0 fL Mean Corpuscular Hemoglobin 32.2 27.0-33.0 pg Mean Corpuscular HGB Conc 33.2 31.0-35.0 g/dl Red Cell Distribution Width 11.9 11.0-16.0 % Platelet Count 228 160-400 X10*3/uL Mean Platelet Volume 9.3 9.4-12.3 fL Neutrophils Percent Auto 49.0 45-73 % Imm Gran Pct Auto 0.3 0.0-0.4 % Lymphocytes Percent Auto 38.2 20-40 % Monocytes Percent Auto 8.5 2-11 % Eosinophils Percent Auto 2.5 0-4 % Basophils Percent Auto 1.5 0-2 % NRBC Pct Auto 0.0 0.0-0.2 /100WBC Neutrophils Absolute Auto 2.0 2.0-8.3 x10*3/u L Imm Gran Abs Auto 0.01 0.00-0.03 X10*3/uL Lymphocytes Absolute Auto 1.5 1.2-4.9 X10*3/u L Monocytes Absolute Auto 0.3 0.1-1.2 X10*3/uL Eosinophils Absolute Auto 0.1 0.0-0.4 X10*3/u L Basophils Absolute Auto 0.1 0.0-0.2 X10*3/uL NRBC Abs Auto 0.000 0.0-0.012 X10*3/uL Comprehensive [place]ons. Panel Fa st Reviewed date:11/09/2024 12:24:21 PM Interpretation: Performing Lab:[facility], [address] [place] [phone] Notes/Report: Sodium 133 135-145 mmol/L Potassium 3.7 3.3-5.1 mmol/L Chloride 96 96-108 mmol/L Carbon Dioxide 31 22-29 mmol/L Anion Gap 10 12-20 Blood Urea Nitrogen 17 9-16 mg/dL Creatinine 0.66 0.5-1.4 mg/dL Estimated Glomerular Filt Rate > 60 Chronic Kidney Disease: Estimated GFR < 60 mL/min/1.73m2 Severe Kidney Disease: Estimated GFR < 15 mL/min/1.73m2 Glucose Fasting 92 60-99 mg/dL Calcium 9.4 8.4-10.2 mg/dL Bilirubin Total 0.8 0.0-1.0 mg/dL Aspartate Amino Transferase 30 5-31 U/L Alanine Aminotransferase 40 0-31 U/L Total Protein 6.9 6.5-8.0 g/dL Albumin Level 4.4 3.5-5.0 g/dL Alkaline Phosphatase 92 39-117 U/L Lipid Panel Reviewed date:11/05/2024 04:35:26 PM Interpretation: Performing Lab:[facility], [address] [place] [phone] Notes/Report: Triglycerides 28 <150 mg/dL Desirable Triglyceride: less than 150 mg/dL Borderline High Triglyceride 150-199 mg/dL High Triglyceride: 200-499 mg/dL Very High Triglyceride: greater than or equal to 5OO mg/dL Cholesterol 136 <200 mg/dL Desirable Cholesterol: less than 200 mg/dL Borderline High Cholesterol: 200-239 mg/dL High Cholesterol: greater than 239 mg/dL LDL Cholesterol Calculated 63 <100 mg/dL Desirable LDL: less than 100 mg/dL Near Optimal/Above Optimal LDL: 110-129 mg/dL Borderline High LDL: 130-159 mg/dL High LDL: 160-189 mg/dL Very High LDL: greater than or equal to 190 mg/dL HDL Cholesterol 68 >40 mg/dL Desirable HDL: greater than 40 mg/dL Note: This HDL assay may give artificially low results in patients with liver disease. UA ClnCatch+Micro w/rflx Cul t Reviewed date:11/09/2024 05:30:10 PM Interpretation: Performing Lab:[facility], [address] [place] [phone] Notes/Report: Urine, Clean Catch Color Urine Yellow Appearance Urine Clear PH 7.0 5.0-9.0 Glucose Urine UA Negative Negative mg/dL Urine Blood Negative Negative Specific [place] - Urine 1.010 1.005-1.025 Urine Protein Negative Neg-Trace mg/dL Urine Ketones Negative Negative mg/dL Nitrite Urine Negative Negative Leukocyte Esterase Urine Negative Negative RBC Urine 0-2 0-2 /HPF WBC Urine 0-5 0-5 /HPF Squamous Epithelial Cell Urine 0-2 0-2 /HPF Bacteria Urine None Seen None Seen Hyaline Casts Urine 0-2 0-2 /LPF REASON FOR VISIT yearly faxing labs Encounters Encounter Location Date Provider Diagnosis Austin Hughes MD [address] [place], [place] [id number] 11/05/2024 Austin Hughes Blood tests for routine general physical examination Z00.00 ; Essential hypertension I10 and Neutropenia D70.9 Assessments Encounter Date Diagnosis (ICD Code) Assessment Notes Treatment Notes Treatment Clinical Notes Section Notes 11/05/2024 Blood tests for routine general physical examination (ICD-10 - Z00.00) 11/05/2024 Essential hypertension (ICD-10 - I10) 11/05/2024 Neutropenia (ICD-10 - D70.9) Plan Of Treatment Next Appt Details Provider Name:Austin Boogie Goldy ier, 05/16/2025 11:00:00 AM, [address] [place] [address], Suite [facility], [place], [place], [phone], Provider Name:Austin P Goldy ier, 11/08/2025 07:45:00 AM, [address] [place] [address], Suite [facility], [place], [place], [phone], Provider Name:Austin Keagan Goldy ier, 11/15/2025 02:30:00 PM, [address] [place] [address], [place] [id number], [place], [place], [phone], Progress Notes * Pankaj FERNANDES FDOB:[birth year] (80 yo F)Acc No.[id number]:11/05/2024 Progress Note Patient: Pankaj STRINGER Provider: Brice Hughes MD :1945 A ge:79 Y S ex:Female Date:11/05/2024 Address:[address] [place], [place] [id number] Subjective: * Chief Complaints: * 1 . Yearly faxing labs. * Medical History: Objective: * Vitals: Assessment: * Assessment: 1. B lood tests for routine general physical examination - Z00.00 (Primary) 2 .?Essential hypertension - I10 3 . N eutropenia - D70.9 Plan: * Treatment: 2. E ssential hypertension L AB: Complete Blood Count Auto Diff (Collection Date & Time - 11/05/2024 07:15 AM) L AB: Comprehensive Parsons. Panel Fast (Collection Date & Time - 11/05/2024 07:15 AM) L AB: Lipid Panel (Collection Date & Time - 11/05/2024 07:15 AM) L AB: UA ClnCatch+Micro w/rflx Cult (Collection Date & Time - 11/05/2024 07:15 AM) 3. N eutropenia L AB: Complete Blood Count Auto Diff (Collection Date & Time - 11/05/2024 07:15 AM) L AB: Comprehensive Parsons. Panel Fast (Collection Date & Time - 11/05/2024 07:15 AM) L AB: Lipid Panel (Collection Date & Time - 11/05/2024 07:15 AM) L AB: UA ClnCatch+Micro w/rflx Cult (Collection Date & Time - 11/05/2024 07:15 AM) * Procedure Codes: 3 6415 VENIPUNCT, ROUTINE* * * The named appointment provid er may or may not be the originator of this progress note, and it is not deemed complete until electronically signed by the appointment provider. Sign off status: Pending * Provider: Brice Hughes MD Date: 0 11/05/2024 Generated for Bird ann/Samia/Cateitting on: 1 07/10/2024 02:37 PM EST
--- OUTSIDE RECORDS SUMMARY | 2024-11-11 04:30 | XMS_ITS ---
Author Organization Austin Hughes MD Address [address] [place], [place] [id number] Care Team Providers Care Medical Art Therapist Name Role Phone Austin Hughes Primary Care Provider Allergies Allergen (clinical drug ingredient) Drug/Non Drug Allergy documented on EMR Reaction Allergy Type Onset Date Status Sulfathiazole swelling o f face Drug Allergy Active lactate Ammonium Lactate swelling Drug Allergy Active sumycinGI Upset (uncoded) GI Upset Allergy Active Results Component Value Reference Range Notes Occult Blood, Stool, Guaiac Reviewed date:11/11/2024 11:46:40 AM Interpretation:Negative Performing Lab: Notes/Report: Negative Occult Blood, Stool, Guaiac neg XR knee RT 3V Reviewed date:11/16/2024 12:49:18 PM Interpretation: Performing Lab: Notes/Report: [facility] [place] [address] XRay Report Signed Patient: Pankaj Fernandes MR#: [id number] : 1945 Acct:[id number] Age/Sex: 79 / F ADM Date: 11/12/24 Loc: .[facility]GCX Attending Dr: Austin Hughes MD Ordering Physician: Austin Hughes MD Date of Service: 11/12/24 Procedure(s): XR knee RT 3V Accession Number(s): [id number] cc: Austin Hughes MD CLINICAL HISTORY: ACUTE KNEE PAIN Right knee four views Comparison: None provided Findings: No acute fracture or dislocation noted. No significant joint effusion identified. Mild loss of joint space. No soft tissue foreign body. Impression: No acute bony abnormality This document has been electronically signed by: Dayton Perez MD on 11/13/2024 20:39:30 Dictated By: Dayton Perez MD Signed By: <Electronically signed by Dayton Perez MD in OV> 11/13/242039 DD/ 38 TD/TT: 11/13/242038 Pocket Setter: [facility] [address] [place] [address] [place] [address] XRay Report Signed Patient: Mukesh Fernandes MR#: [id number] : 1945 Acct:[id number] Age/Sex: 79 / F ADM Date: 11/12/24 Loc: .[facility]GCX Attending Dr: Austin Hughes MD Ordering Physician: Austin Hughes MD Date of Service: 11/12/24 Procedure(s): XR knee RT 3V Accession Number(s): [id number] cc: Austin Hughes MD CLINICAL HISTORY: AC EVA KNEE PAIN Right knee four views Comparison: None provided Findings: No acute fracture or dislocation noted. No significant joint effusion identified. Mild loss of joint space. No soft tissue foreign body. Impression: No acute bony abnormality This document has be en electronically signed by: Dayton Perez MD on 11/13/2024 20:39:30 Dictated By: Dayton Perez MD Signed By: <Keshia woodruff signed by Dayton Perez MD in OV> 11/13/242039 DD/ 38 TD/TT: 11/13/242038 Pocket Setter: REASON FOR VISIT annual visit Medications Medication SIG (Take, Route, Frequency, Duration) Notes Start Date End Date Status clonazePAM 0.5 MG 0.5 tablet at bedtim e Orally Once a day Not-Taking Glucosamine Chond Complex/MSM Orally Not-Taking Vitamin D3 2000 UNIT 1 capsule Orally On ce a day Not-Taking Valsartan-hydroCHLOROthia zide 160-12.5 mg TAKE 1 TABLET DAILY oral once a day Active Folic Acid 1 mg TAKE 1 TABLET DAILY by mouth daily for 90 days Active Vitamin B12 1000 MCG 1 tablet Orally Onc e a day for 30 day(s) Active Flonase 50 MCG/ACT 1 spray in each nost ril Nasally Once a day for 30 day(s) Not-Taking Carbidopa-Levodopa 25-100 MG 1 tablet as needed Orally Three times a day Active Atorvastatin Calcium 20 MG 1 tablet Orally Once a day for 90 days 12/19/2023 Active Propranolol HCl ER 80 mg TAKE 1 CAPSULE DAILY oral once a day for 90 days Active Vitamin C 500 MG Orally Not -Taking Genny Allergy 180MG TAKE 1 TABLET DAILY Not-Taking Social History Tobacco Use: Social History Observation Description Date Details (start date - stop date) Former Smoker NA - NA Tobacco Use/Smoking Question Answer Notes Patient is a former smoker How long has it been since y ou last smoked? > 10 years Additional Findings: Tobacco Non-User Fo rmer smoker, currently using no form of tobacco AUDIT-C (Standard) Question Answer Notes Did you have a drink contain ing alcohol in the past year? Yes How often did you have a dri nk containing alcohol in the past year? Monthly or less (1 point) How many drinks did you have on a typical day when you were drinking in the past year? 1 or 2 drinks (0 point) How often did you have six o r more drinks on one occasion in the past year? Never (0 point) Points 1 Interpretation Negative Vital Signs Blood pressure systolic 132 mm Hg 11/12/19 25 Blood pressure diastolic 80 mm Hg 025 Height 65 in 11/11/2024 Weight 132 lbs 11/11/2024 BMI 21.96 kg/m2 11/11/2024 Encounters Encounter Location Date Provider Diagnosis Austin Hughes MD [address] [place] [address] [place] [phone] 11/11/2024 Austin Hughes Annual physical exam Z00.00 ; Knee pain, acute M25.569 ; Essential hypertension I10 ; Colon cancer screening Z12.11 and Depression screening Z13.31 Assessments Encounter Date Diagnosis (ICD Code) Assessment Notes Treatment Notes Treatment Clinical Notes Section Notes 11/11/2024 Annual physical exam (ICD-10 - Z00.00) labs reviewed and discussed with patient 11/11/2024 Knee pain, acute (ICD-10 - M25.569) THE ORDER WAS PRINTED AND GIVEN TO PATIENT, pending diagnostic testing 11/11/2024 Essential hypertension (ICD-10 - I10) well controlled, will continue current regiment 11/11/2024 Colon cancer screening (ICD-10 - Z12.11) guaiac negative 11/11/2024 Depression screening (ICD-10 - Z13.31) negative screen Plan Of Treatment Medication Medication Name Sig Start Date Stop Date Notes Valsartan-hydroCHLOROthiazid e 160-12.5 mg TAKE 1 TABLET DAILY oral once a day Treatment Notes Assessment Notes Annual physical exam labs reviewed and d iscussed with patient Knee pain, acute THE ORDER WAS PRINTE D AND GIVEN TO PATIENT, pending diagnostic testing Essential hypertension well controlled, will continue current regiment Colon cancer screening guaiac negative Depression screening negative screen Next Appt Details Follow Up: 6 Months, Reason: Provider Name:Austin shipley, 05/16/2025 11:00:00 AM, [address] [place] [address], [address], [phone], Provider Name:Austin shipley, 11/08/2025 07:45:00 AM, [address] [place] [address], [address], [phone], Provider Name:Austin shipley, 11/15/2025 02:30:00 PM, [address] [place] [address], [address], [phone], Progress Notes * Pankaj FERNANDES FDOB:[birth year] (79 yo F)Acc No.[id number]:11/11/2024 Progress Notes Patient: M Pankaj ETIENNE Provider: Brice Hughes MD :1945 A ge:79 Y S ex:Female Date:11/11/2024 Address:[id number] Subjective: * Chief Complaints: * A nnual visit * HPI: D epression Screening: PHQ-9 L ittle interest or pleasure in doing things N ot at all, F eeling down, depressed, or hopeless N ot at all, T rouble falling or staying asleep, or sleeping too much N ot at all, F eeling tired or having little energy N ot at all, P oor appetite or overeating N ot at all, F eeling bad about yourself or that you are a failure, or have let yourself or your family down N ot at all, T rouble concentrating on things, such as reading the newspaper or watching television N ot at all, M oving or speaking so slowly that other people could have noticed; or the opposite, being so fidgety or restless that you have been moving around a lot more than usual N ot at all, T houghts that you would be better off or of hurting yourself in some way N ot at all, T otal Score 0 . I nterpretation and Intervention D epression Screening Findings N egative, F ollow-Up for Depression : review of PHQ-9 found negative result, no follow-up needed. fell and broke knee cap. in may. saw ortho and is getting better. C ommunication Needs: Communication Needs D oes the patient have a hearing impairment Y es, I f yes, what is the hearing impairment? H amanda of hearing, Hearing Aids, D oes the patient have a vision impairment? Y es, I f yes, what is the vision impairment? G lasses, D oes the patient have a cognition impairment? N o. F all Risk: History H ave you had any falls with injury in the past year? Y es fell in a parking lot turning quickly fell onto left knee went to Urgent Care, [place] [facility] [place] H [place] you had two or more falls in the past year? N o. S KATE Questions: SDOH Questions I n the past year have you been worried about losing housing? N o, I n the past year have you or any family members you live with been unable to get any of the following when it was really needed? Check all that apply: N one. S ymptom(s): patient is a 79 yo female here for annual visit with review of recent labs and follow up of chronic issues. * ROS: G eneral/Constitutional: Change in appetite d enies. C hills d enies. F ever d enies. O phthalmologic: Blurred vision d enies. D ischarge d enies. P ain d enies. E NT: Decreased hearing d enies. S ore throat d enies.?Swollen glands d enies. E ndocrine: Cold intolerance d enies. E xcessive thirst d enies. H eat intolerance d enies. W eight loss d enies. R espiratory: Cough d enies. S hortness of breath at rest d enies. S hortness of breath with exertion d enies. W heezing d enies. C ardiovascular: Chest pain at rest d enies. C hest pain with exertion?denies. I rregular heartbeat d enies. S hortness of breath d enies. ? G astrointestinal: Abdominal pain d enies. C hange in bowel habits d enies. D iarrhea d enies. N ausea d enies. R ectal bleeding d enies. V omiting d enies . G enitourinary: Blood in urine d enies. D ifficulty urinating d enies. F requent urination d enies. U rinary incontinence D enies. M usculoskeletal: Painful joints d enies. W eakness d enies. ? S kin: Dry skin d enies. I tching d enies. D enies?Mole(s), changes in moles, new moles or any lesions of concern. D enies P hotosensitivity. R angeles d enies. N eurologic: Dizziness d enies. F ainting d enies. H eadache?denies. * Medical History: * Surgical History: * Hospitalization/Major Diagno stic Procedure: * Family History: F ather: 54 yrs. M other: 77 yrs. father, [place] mother, pancreatic [place], Denies mental health/substance abuse family history, No pertinent family medical history. * Social History: T obacco Use: T obacco Use/Smoking P atient is a f ormer smoker, H ow long has it been since you last smoked? > 10 years, A dditional Findings: Tobacco Non-User F ormer smoker, currently using no form of tobacco. M iscellaneous: C affeine: no. Children: no. Community involvements: yes, [employer]. Exercise: no. Home smoke detector use: yes. Housing: owning. Living with: spouse. Marital status: . Pets: none. Travel outside of the [place]: no. D rug/Alcohol: A DEACON-C (Standard) D id you have a drink containing alcohol in the past year? Y es, H ow often did you have a drink containing alcohol in the past year? M onthly or less (1 point), H ow many drinks did you have on a typical day when you were drinking in the past year? 1 or 2 drinks (0 point), H ow often did you have six or more drinks on one occasion in the past year? N ever (0 point), P oints 1 , I nterpretation N egative. * Medications: T akingVitamin B12 1000 MCG Tablet Extended Release 1 tablet Orally Once a day Carbidopa-Levodopa 25-100 MG Tablet 1 tablet as needed Orally Three times a day Atorvastatin Calcium 20 MG Tablet 1 tablet Orally Once a day Propranolol HCl ER 80 mg Capsule Extended Release 24 Hour TAKE 1 CAPSULE DAILY oral once a day Valsartan-hydroCHLOROthiazide 160-12.5 mg Tablet TAKE 1 TABLET DAILY oral once a day Folic Acid 1 mg Tablet TAKE 1 TABLET DAILY by mouth daily Taking Vitamin B12 1000 MCG Tablet Extended Release 1 tablet Orally Once a day Taking Carbidopa-Levodopa 25- 100 MG Tablet 1 tablet as needed Orally Three times a day Taking Atorvastatin Calcium 20 MG Tablet 1 tablet Orally Once a day Taking Propranolol HCl ER 80 mg Capsule Extended Release 24 Hour TAKE 1 CAPSULE DAILY oral once a day Taking Valsartan-hydroCHLOROthiazide 160-12.5 mg Tablet TAKE 1 TABLET DAILY oral once a day Taking Folic Acid 1 mg Tablet TAKE 1 TABLET DAILY by mouth daily Not-Taking/PRNclonazePAM 0.5 MG Tablet 0.5 tablet at bedtime Orally Once a day Glucosamine Chond Complex/MSM Tablet Orally Vitamin D3 2000 UNIT Capsule 1 capsule Orally Once a day Vitamin C 500 MG Capsule Orally Egnny Allergy 180MG Tablet TAKE 1 TABLET DAILY Flonase 50 MCG/ACT Suspension 1 spray in each nostril Nasally Once a day Medication List reviewed and reconciled with the patientNot-Taking/PRN clonazePAM 0.5 MG Tablet 0.5 tablet at bedtime Orally Once a day Not-Taking/PRN Glucosamine Chond Complex/MSM Tablet Orally Not-Taking/PRN Vitamin D3 2000 UNIT Capsule 1 capsule Orally Once a day Not-Taking/PRN Vitamin C 500 MG Capsule Orally Not-Taking/PRN Genny Allergy 180MG Tablet TAKE 1 TABLET DAILY Not-Taking/PRN Flonase 50 MCG/ACT Suspension 1 spray in each nostril Nasally Once a day Medication List reviewed and reconciled with the patient * Allergies: s umycinGI Upset: GI UpsetSulfathiazole: swelling o f faceAmmonium Lactate: swellingyes[Allergies Verified] Objective: * Vitals: H t: 65, Wt: 132, BMI:21.96, BP:132/80, Wt-k.87. * P ast Orders: L ab:Lipid Panel (Order Date - 11/05/2024) (Collection Date & Time - 11/05/2024 07:15 AM) Value Reference Range Triglycerides 28 <150 - mg/dL Cholesterol 136 <200 - mg/dL LDL Cholesterol Calculated 63 <100 - mg/dL HDL Cholesterol 68 >40 - mg/dL L ab:Complete Blood Count Auto Diff (Order Date - 11/05/2024) (Collection Date & Time - 11/05/2024 07:15 AM) Value Reference Range White Blood Count 4.0 L 4.8-10.8 - X10*3/uL Red Blood Count 3.82 L 4.20-5.50 - X10*6/uL Hemoglobin 12.3 12.0-16.0 - g/dl Hematocrit 37.0 37.0-47.0 - % Mean Corpuscular Volume 96.9 80.0-98.0 - fL Mean Corpuscular Hemoglobin 32.2 27.0-33.0 - pg Mean Corpuscular HGB Conc 33.2 31.0-35.0 - g/ dl Red Cell Distribution Width 11.9 11.0-16.0 - % Platelet Count 228 160-400 - X10*3/uL Mean Platelet Volume 9.3 L 9.4-12.3 - fL Neutrophils Percent Auto 49.0 45-73 - % Imm Gran Pct Auto 0.3 0.0-0.4 - % Lymphocytes Percent Auto 38.2 20-40 - % Monocytes Percent Auto 8.5 2-11 - % Eosinophils Percent Auto 2.5 0-4 - % Basophils Percent Auto 1.5 0-2 - % NRBC Pct Auto 0.0 0.0-0.2 - /100WBC Neutrophils Absolute Auto 2.0 2.0-8.3 - x10* 3/uL Imm Gran Abs Auto 0.01 0.00-0.03 - X10*3/uL Lymphocytes Absolute Auto 1.5 1.2-4.9 - X10* 3/uL Monocytes Absolute Auto 0.3 0.1-1.2 - X10*3/ uL Eosinophils Absolute Auto 0.1 0.0-0.4 - X10* 3/uL Basophils Absolute Auto 0.1 0.0-0.2 - X10*3/ uL NRBC Abs Auto 0.000 0.0-0.012 - X10*3/uL L ab:Comprehensive [place]. Panel Fast (Order Date - 11/05/2024) (Collection Date & Time - 11/05/2024 07:15 AM) Value Reference Range Sodium 133 L 135-145 - mmol/L Bilirubin Total 0.8 0.0-1.0 - mg/dL Aspartate Amino Transferase 30 5-31 - U/L Alanine Aminotransferase 40 H 0-31 - U/L Total Protein 6.9 6.5-8.0 - g/dL Albumin Level 4.4 3.5-5.0 - g/dL Alkaline Phosphatase 92 39-117 - U/L Potassium 3.7 3.3-5.1 - mmol/L Chloride 96 96-108 - mmol/L Carbon Dioxide 31 H 22-29 - mmol/L Anion Gap 10 L 12-20 - Blood Urea Nitrogen 17 H 9-16 - mg/dL Creatinine 0.66 0.5-1.4 - mg/dL Estimated Glomerular Filt Rate > 60 - Glucose Fasting 92 60-99 - mg/dL Calcium 9.4 8.4-10.2 - mg/dL L ab:UA ClnCatch+Micro w/rflx Cult (Order Date - 11/05/2024) (Collection Date & Time - 11/05/2024 07:15 AM) Value Reference Range Color Urine Yellow - Appearance Urine Clear - PH 7.0 5.0-9.0 - Glucose Urine UA Negative Negative - mg/dL Urine Blood Negative Negative - Specific [place] - Urine 1.010 1.005-1.025 - Urine Protein Negative Neg-Trace - mg/dL Urine Ketones Negative Negative - mg/dL Nitrite Urine Negative Negative - Leukocyte Esterase Urine Negative Negative - RBC Urine 0-2 0-2 - /HPF WBC Urine 0-5 0-5 - /HPF Squamous Epithelial Cell Urine 0-2 0-2 - /HP F Bacteria Urine None Seen None Seen - Hyaline Casts Urine 0-2 0-2 - /LPF * Examination: G eneral Examination: GENERAL APPEARANCE: w ell developed, well nourished, in no acute distress. HEAD: n ormocephalic, atraumatic. EYES: p upils equal, round, reactive to light and accommodation, sclera non-icteric. EARS: n ormal. ORAL CAVITY: m ucosa moist. THROAT: c lear. NECK/THYROID: n hansa supple, full range of motion, no cervical lymphadenopathy, no bruits. SKIN: w arm and dry, no suspicious lesions. HEART: r egular rate and rhythm, S1, S2 normal, no murmurs.? LUNGS: c lear to auscultation bilaterally. BREASTS: N o mass, no lump. ABDOMEN: s oft, nontender, nondistended, bowel sounds present, normal, no organomegaly , no masses palpable. RECTAL EXAM: n o masses palpable, stool guaiac negative.? FEMALE GENITOURINARY: n ot done. EXTREMITIES: n o clubbing, cyanosis, or edema. NEUROLOGIC: n onfocal, motor strength normal upper and lower extremities, sensory exam intact. Assessment: * Assessment: 1. A nnual physical exam - Z00.00 (Primary) 2 . K nee pain, acute - M25.569? 3. E ssential hypertension - I10 4 . C olon cancer screening - Z12.11 5 . D epression screening - Z13.31 Plan: * Treatment: 2. K nee pain, acute I maging: XR knee RT 3V Notes: THE ORDER WAS PRINTED AND GIVEN TO PATIENT, pending diagnostic testing 3. E ssential hypertension Continue Valsartan-hydroCHLOROthiazide Tablet, 160-12.5 mg, TAKE 1 TABLET DAILY, oral, once a day.? Notes: well controlled, will continue current regiment 4. C olon cancer screening L AB: Occult Blood, Stool, Guaiac (Collection Date & Time - 11/11/2024) N egative Value Reference Range O ccult Blood, Stool, Guaiac neg Notes: guaiac negative??5.?Depression screening? Notes: negative screen?? * Procedure Codes: 8 2270 TEST FOR BLOOD, FECES * Follow Up: 6 Months * * Sign off status: Completed true * Provider: Brice Hughes MD Date: 0 11/11/2024 Generated for Bird ann/Samia/eTransmitting on: 1 07/10/2024 02:36 PM EST History and Physical Notes * HPI (History of Present Illness) Category Sub-Category Detail Notes Category Not es Symptom(s) patient is a 79 yo female here for annual visit with review of recent labs and follow up of chronic issues Depression Screening PHQ-9 Little inte rest or pleasure in doing things: Not at all fell and broke knee cap. in may. saw ortho and is getting better. Feeling down, depressed, or hopeless: No t at all Trouble falling or staying asleep, or sl eeping too much: Not at all Feeling tired or having little energy: N ot at all Poor appetite or overeating: Not at all Feeling bad about yourself o r that you are a failure, or have let yourself or your family down: Not at all Trouble concentrating on thi ngs, such as reading the newspaper or watching television: Not at all Moving or speaking so slowly that other people could have noticed; or the opposite, being so fidgety or restless that you have been moving around a lot more than usual: Not at all Thoughts that you would be b coleen off or of hurting yourself in some way: Not at all Total Score: 0 Interpretation and Intervention Depression Camelia graham Findings: Negative Follow-Up for Depression: : review of PH Q-9 found negative result, no follow-up needed SDOH Questions SDOH Questions In the past year have you been worried about losing housing?: No In the past year have you or any family members you live with been unable to get any of the following when it was really needed? Check all that apply:: None Fall Risk History Have you had any falls with injury in the past year?: Yes fell in a parking lot turning quickly fell onto left knee went to Urgent Care, [place] [facility] [place] Have you had two or more falls in the year?: No Communication Needs Communication Needs Does the patient have a hearing impairment: Yes If yes, what is the hearing impairment?: Hard of hearing, Hearing Aids Does the patient have a vision impairmen t?: Yes If yes, what is the vision impairment?: Glasses Does the patient have a cognition impair ment?: No Examination Category Sub-Category Detail Notes Category Not es General Examination GENERAL APPEARANCE: well dev eloped, well nourished, in no acute distress HEAD: normocephalic, atrau matic EYES: pupils equal, round, reactive to light and accommodation, sclera non-icteric EARS: normal THROAT: clear NECK/THYROID: neck supple, full ra nge of motion, no cervical lymphadenopathy, no bruits HEART: regular rate and rhy thm, S1, S2 normal, no murmurs LUNGS: clear to auscultatio n bilaterally ABDOMEN: soft, nontender, non distended, bowel sounds present, normal, no organomegaly , no masses palpable NEUROLOGIC: nonfocal, motor stre ngth normal upper and lower extremities, sensory exam intact SKIN: warm and dry, no melinda picious lesions EXTREMITIES: no clubbing, cyanosi s, or edema BREASTS: No mass, no lump RECTAL EXAM: no masses palpable, stool guaiac negative FEMALE GENITOURINARY: not done ORAL CAVITY: mucosa moist
--- OUTSIDE RECORDS SUMMARY | 2025-05-09 03:00 | XMS_ITS ---
Author Organization Austin Hughes MD Address [address] [place], [place] [address] Care Team Providers Care Maintenance Mechanic Millwright Name Role Phone Austin Hughes Primary Care Provider Results Component Value Reference Range Notes Liver Panel Reviewed date:05/09/2025 12:59:47 PM Interpretation: Performing Lab:[facility], [address] [place] [id number] Notes/Report: Bilirubin Total 0.7 0.0-1.0 mg/dL Bilirubin Direct 0.3 0.0-0.5 mg/dL Aspartate Amino Transferase 30 5-31 U/L Alanine Aminotransferase 36 0-31 U/L Total Protein 7.0 6.5-8.0 g/dL Albumin Level 4.6 3.5-5.0 g/dL Alkaline Phosphatase 107 39-117 U/L Lipid Panel with Reflex Reviewed date:05/09/2025 12:59:38 PM Interpretation: Performing Lab:[facility], [address] [place] [address] Notes/Report: Triglycerides 26 <150 mg/dL Desirable Triglyceride: less than 150 mg/dL Borderline High Triglyceride 150-199 mg/dL High Triglyceride: 200-499 mg/dL Very High Triglyceride: greater than or equal to 5OO mg/dL Cholesterol 144 <200 mg/dL Desirable Cholesterol: less than 200 mg/dL Borderline High Cholesterol: 200-239 mg/dL High Cholesterol: greater than 239 mg/dL LDL Cholesterol Calculated 66 <100 mg/dL Desirable LDL: less than 100 mg/dL Near Optimal/Above Optimal LDL: 110-129 mg/dL Borderline High LDL: 130-159 mg/dL High LDL: 160-189 mg/dL Very High LDL: greater than or equal to 190 mg/dL HDL Cholesterol 73 >40 mg/dL Desirable HDL: greater than 40 mg/dL Note: This HDL assay may give artificially low results in patients with liver disease. REASON FOR VISIT FASTING LIPIDS Encounters Encounter Location Date Provider Diagnosis Austin Hughes MD [address] [place] [address] [place] [id number] 05/09/2025 Austin Hughes Aortic atheroscleros is I70.0 Assessments Encounter Date Diagnosis (ICD Code) Assessment Notes Treatment Notes Treatment Clinical Notes Section Notes 05/09/2025 Aortic atherosclerosis (ICD-10 - I70.0) Plan Of Treatment Next Appt Details Provider Name:Austin shipley, 05/16/2025 11:00:00 AM, [address] [place] [address], [address], [id number], Provider Name:Austin shipley, 11/08/2025 07:45:00 AM, [address] [place] [address], [address] [place] [address], [id number], Provider Name:Austin shipley, 11/15/2025 02:30:00 PM, [address] [place] [address], [address], [id number], Progress Notes * PERNELLMichaele FDOB:[birth year] (80 yo F)Acc No.[id number]:05/09/2025 Progress Note Patient: Pankaj STRINGER Provider: Brice Hughes MD :1945 A ge:80 Y S ex:Female Date:05/09/2025 Address:[facility] Cinda Justin [facility] Subjective: * Chief Complaints: * 1 . FASTING LIPIDS. * Medical History: Objective: * Vitals: Assessment: * Assessment: 1. A ortic atherosclerosis - I70.0 (Primary) Plan: * Treatment: * Procedure Codes: 3 6415 VENIPUNCT, ROUTINE* * * The named appointment provid er may or may not be the originator of this progress note, and it is not deemed complete until electronically signed by the appointment provider. Sign off status: Pending * Provider: Brice Hughes MD Date: 07/10/2024 Generated for Bird nan/Samia/Cateitting on: 07/10/2024 02:37 PM EST
[2025-05-09 11:50] LABS: Alanine Aminotransferase 36 U/L (0-31); Albumin Level 4.6 g/dL (3.5-5.0); Alkaline Phosphatase 107 U/L (39-117); Aspartate Amino Transferase 30 U/L (5-31); Cholesterol 144 mg/dL (<200); HDL Cholesterol 73 mg/dL (>40); Total Protein 7.0 g/dL (6.5-8.0); Triglycerides 26 mg/dL (<150)
[2025-05-09 12:15] LABS: Reflex LDLD? No
--- OUTSIDE RECORDS SUMMARY | 2025-05-09 14:37 | XMS_ITS | Clinical Summary ---
Author Organization [facility] Address [address] [place] [address] Phone Care Team Providers Care Occup Therapist Name Role Phone Austin Hughes MD Primary [...] topic Medical Devices Not on file Insurance [facility] MEDICARE REPLACEMENT [facility] MEDICARE REPLACEMENT [facility] MEDICARE REPLACEMENT [facility] MEDICARE REPLACEMENT [facility] MEDICARE REPLACEMENT [facility] MEDICARE REPLACEMENT Care Teams Occup Therapist Relationship Specialty Start Date End Date Austin Hughes MD [address] [place] [address] [place] [address] PCP - General Internal Medicine 12/26/22 Additional Source Comments The information contained in this document represents components of the legal health record. It is not the complete legal health record.[facility]
--- OUTSIDE RECORDS SUMMARY | 2025-05-09 14:38 | XMS_ITS | Patient Health Record ---
[facility] Address [address] [place] [address] Care Team Providers Care Vehicle Return Associate Name Role Phone Ellen SHERWOOD, Austin Primary Care Provider Jennifer Sher Unavailable [phone] Reason For Referral No Information Medications Medication [...] Status W/U Status Risk Notes Problem Edema (91512839) Edema (782.3) Active confirmed Problem Pain in limb (59289518) Pain in Limb (729.5) Active confirmed Problem Stress fracture (65768062) Stress fx (733.94) Active confirmed Plan Of [...] Start Date Coverage End Date Medicare [facility] [address] [place] [phone] [id number] Pankaj Fernandes Self - patient is the insured [address] [place] [address] All Others [address] [place] [address] [id number] Pankaj Fernandes Self - patient is the insured Medical (General) History Medical History History ICD Code back, hip, knee pain broken bones high blood pressure chronic sinusitis mumps chicken pox Surgical History Surgery Date(Month/Year) hysterectomy tonsillectomy gingavectomy
--- OUTSIDE RECORDS SUMMARY | 2025-05-09 14:38 | XMS_ITS | Patient Health Record ---
Author Organization [facility] Address [address] [place] [address] Care Team Providers Care Neuropsychology Service Director Name Role Phone Ellen SHERWOOD, [place] Primary Care Provider Lucio Martin Jr [phone] Reason For Referral No Information Medications Medication SIG (Take, Route, Frequency, Duration) Notes Start Date End Date Status Allergy & Sinus Intense St 25-10-650 MG Tablet 1 Orally prn Active Vitamin C 500 MG Tablet Chewable 1 tablet Orally Once a day Active Glucosamine Chondr 1500 Complx 1 Capsule 1 Orally BID Active Vitamin D3 2000 UNIT Capsule 1 capsule Orally Once a day Active Valsartan-hydroCHLOROthiazi de 320-12.5 MG Tablet 1 tablet Orally Once a day Active Immunizations Vaccine Route Administration Date Status Comme nts Flu vaccine no Preserv 3 and > Unknown 02/28/2015 Admin istered Social History Social History Additional Details Category Social Info Options Details Miscellaneous: Marital status: Occupation: retired Problems Problem Type SNOMED Code ICD Code Onset Dates Problem Status W/U Status Risk Notes Problem Hypertension (23408668) Hypertension (I10) Active confirmed Problem Rectal pain (75682303) Rectal pain (K62.89) Active confirmed Plan Of Treatment No Information Insurance Providers Payer Name Payer Address Payer Phone Subscriber Number Group Number Insured Name Patient Relationship to Insured Coverage Start Date Coverage End Date [place] [address] [place] [address] [id number] TALON GIMENEZ Self - patient is the insured [facility] [address] [place], [place] [id number] [phone] [id number] TALON GIMENEZ Self - patient is the insured Medical (General) History Medical History History ICD Code colonoscopy 10-13-2009 seasonal allergic rhinitis hypertension Surgical History Surgery Date(Month/Year) hysterectomy tonsillectomy
--- OUTSIDE RECORDS SUMMARY | 2025-05-09 14:38 | XMS_ITS | Patient Health Record ---
Author Organization Austin Hughes MD Address [address] [place], [place] [id number] Care Team Providers Care Machine Strap Buckler Name Role Phone Austin Hughes Primary Care Provider [phone] Allergies Allergen (clinical drug ingredient) Drug/Non Drug Allergy documented on EMR Reaction Allergy Type Onset Date Status Sulfathiazole swelling o f face Drug Allergy Active lactate Ammonium Lactate swelling Drug Allergy Active sumycinGI Upset (uncoded) GI Upset Allergy Active Results Component Value Reference Range Notes Complete Blood Count Auto Di ff Reviewed date:11/09/2024 12:23:37 PM Interpretation: Performing Lab:[facility], [address] [place] [phone] Notes/Report: White Blood Count 4.0 4.8-10.8 X10*3/uL [...] NRBC Abs Auto 0.000 0.0-0.012 X10*3/uL Comprehensive [place]. Panel Fa st Reviewed date:11/09/2024 12:24:21 PM Interpretation: Performing Lab:[facility], [address] [place] [phone] Notes/Report: Sodium 133 135-145 mmol/L Potassium 3.7 [...] Panel Reviewed date:11/05/2024 04:35:26 PM Interpretation: Performing Lab:[address] [phone] Notes/Report: Triglycerides 28 <150 mg/dL Desirable Triglyceride: [...] t Reviewed date:11/09/2024 05:30:10 PM Interpretation: Performing Lab:[address] [phone] Notes/Report: Urine, Clean Catch Color Urine Yellow Appearance Urine Clear PH 7.0 5.0-9.0 Glucose Urine UA Negative Negative mg/dL Urine Blood Negative Negative Specific [place] - Urine 1.010 1.005-1.025 Urine Protein Negative Neg-Trace mg/dL Urine Ketones Negative Negative mg/dL Nitrite Urine Negative Negative Leukocyte Esterase Urine Negative Negative RBC Urine 0-2 0-2 /HPF WBC Urine 0-5 0-5 /HPF Squamous Epithelial Cell Urine 0-2 0-2 /HPF Bacteria Urine None Seen None Seen Hyaline Casts Urine 0-2 0-2 /LPF Liver Panel Reviewed date:05/09/2025 12:59:47 PM Interpretation: Performing Lab:[facility], [address] [place] [phone] Notes/Report: Bilirubin Total 0.7 0.0-1.0 mg/dL Bilirubin Direct 0.3 0.0-0.5 mg/dL Aspartate Amino Transferase 30 5-31 U/L Alanine Aminotransferase 36 0-31 U/L Total Protein 7.0 6.5-8.0 g/dL Albumin Level 4.6 3.5-5.0 g/dL Alkaline Phosphatase 107 39-117 U/L Lipid Panel with Reflex Reviewed date:05/09/2025 12:59:38 PM Interpretation: Performing Lab:[facility], [address] [place] [phone] Notes/Report: Triglycerides 26 <150 mg/dL Desirable Triglyceride: [...] liver disease. Occult Blood, Stool, Guaiac Reviewed date:11/11/2024 11:46:40 AM Interpretation:Negative Performing Lab: Notes/Report: Negative Occult Blood, Stool, Guaiac neg XR knee RT 3V Reviewed date:11/16/2024 12:49:18 PM Interpretation: Performing Lab: Notes/Report: [facility] [address] [place] [address] XRay Report Signed Patient: Pankaj Fernandes MR#: [id number] 875 : 1945 Acct:[id number] Age/Sex: 79 / F ADM Date: 11/12/24 Loc: .HMGCX Attending Dr: Austin Hughes MD Ordering Physician: Austin Hughes MD Date of Service: 11/12/24 Procedure(s): XR knee RT 3V Accession Number(s): [id number] cc: Austin Hughes MD CLINICAL HISTORY: ACUTE [...] in OV> 11/13/242039 DD/ 38 TD/TT: 11/13/242038 Car Sweeper: [facility] [address] [place] [address] [place] [address] XRay Report Signed Patient: Mukesh Fernandes MR#: [id number] 875 : 1945 Acct:[id number] Age/Sex: 79 / F ADM Date: 11/12/24 Loc: HO.HMGCX Attending Dr: Austin Hughes MD Ordering Physician: Austin Hughes MD Date of Service: 11/12/24 Procedure(s): XR kne e RT 3V Accession Number(s): [id number] cc: Austin Hughes MD CLINICAL HISTORY: AC [place] KNEE PAIN Right knee four views Comparison: [...] in OV> 11/13/242039 DD/ 38 TD/TT: 11/13/242038 Car Sweeper: CT cervical spine wo con Reviewed date:05/25/2024 12:45:13 PM Interpretation: Performing Lab: Notes/Report: [address] [address] [address] Scan Report Signed Patient: Pankaj Fernandes MR#: [id number] 875 : 1945 Acct:[id number] Age/Sex: 79 / F ADM Date: 05/24/24 Loc: HO.ED Attending Dr: Ordering Physician: Bradley Bynum Date of Service: 05/24/24 Procedure(s): CT cervical spine wo IV con Accession Number(s): [id number] cc: Bradley Bynum; Austin Hughes MD Report Number: [id number]: Total DLP = 1190.00 mGy-cm CLINICAL HISTORY: [...] in OV> 05/24/241857 DD/ 55 TD/TT: 05/24/241855 Car Sweeper: [address] [address] [address] Scan Report Signed Patient: Mukesh Fernandes MR#: [id number] 875 : 1945 Acct:[id number] Age/Sex: 79 / F ADM Date: 05/24/24 Loc: HO.ED Attending Dr: Ordering Physician: Bradley Bynum Date of Service: 05/24/24 Procedure(s): CT cer vical spine wo IV con Accession Number(s): [id number] cc: Bradley Bynum; Austin Hughes MD Report [...] in OV> 05/24/241857 DD/ 55 TD/TT: 05/24/241855 Car Sweeper: CT head/brain wo con Reviewed date:05/25/2024 12:51:33 PM Interpretation: Performing Lab: Notes/Report: [place] [address] [address] Scan Report Signed Patient: Pankaj Fernandes MR#: [id number] 875 : 1945 Acct:[id number] Age/Sex: 79 / F ADM Date: 05/24/24 Loc: HO.ED Attending Dr: Ordering Physician: Bradley Bynum Date of Service: 05/24/24 Procedure(s): CT head/brain wo IV con Accession Number(s): [id number] cc: Bradley Bynum; Austin Hughes MD Report Number: [id number]: Total DLP = 1190.00 mGy-cm CLINICAL HISTORY: [...] in OV> 05/24/241856 DD/ 55 TD/TT: 05/24/241855 Car Sweeper: [address] [address] [address] Scan Report Signed Patient: Mukesh Fernandes MR#: [id number] 875 : 1945 Acct:[id number] Age/Sex: 79 / F ADM Date: 05/24/24 Loc: HO.ED Attending Dr: Ordering Physician: Bradley Bynum Date of Service: 05/24/24 Procedure(s): CT head/brain wo IV con Accession Number(s): [id number] cc: Bradley Bynum; Austin Hughes MD Report [...] in OV> 05/24/241856 DD/ 55 TD/TT: 05/24/241855 Car Sweeper: CT facial bones wo con Reviewed date:05/25/2024 12:50:26 PM Interpretation: Performing Lab: Notes/Report: [address] [address] [address] Scan Report Signed Patient: Pankaj Fernandes MR#: [id number] 875 : 1945 Acct:[id number] Age/Sex: 79 / F ADM Date: 05/24/24 Loc: HO.ED Attending Dr: Ordering Physician: Bradley Bynum Date of Service: 05/24/24 Procedure(s): CT facial bones wo IV con Accession Number(s): [id number] cc: Bradley Bynum; Austin Hughes MD Report Number: [id number]: Total DLP = 1190.00 mGy-cm CLINICAL HISTORY: [...] in OV> 05/24/241856 DD/ 55 TD/TT: 05/24/241855 Car Sweeper: [place] [address] [address] Scan Report Signed Patient: Mukesh Fernandes MR#: [id number] 875 : 1945 Acct:[id number] Age/Sex: 79 / F ADM Date: 05/24/24 Loc: HO.ED Attending Dr: Ordering Physician: Bradley Bynum Date of Service: 05/24/24 Procedure(s): CT fac ial bones wo IV con Accession Number(s): [id number] cc: Bradley Bynum; Austin Hughes MD Report [...] in OV> 05/24/241856 DD/ 55 TD/TT: 05/24/241855 Car Sweeper: XR knee LT 4V Reviewed date:05/25/2024 12:52:40 PM Interpretation: Performing Lab: Notes/Report: [address] [address] XRay Report Signed Patient: Pankaj Fernandes MR#: [id number] 875 : 1945 Acct:[id number] Age/Sex: 79 / F ADM Date: 05/24/24 Loc: HO.ED Attending Dr: Ordering Physician: Bradley Bynum Date of Service: 05/24/24 Procedure(s): XR knee LT 4V Accession Number(s): [id number] cc: Bradley Bynum; Austin Hughes MD CLINICAL [...] in OV> 05/24/241829 DD/ 28 TD/TT: 05/24/241828 Car Sweeper: [address] [address] XRay Report Signed Patient: Mukesh Fernandes MR#: [id number] 875 : 1945 Acct:[id number] Age/Sex: 79 / F ADM Date: 05/24/24 Loc: HO.ED Attending Dr: Ordering Physician: Bradley Bynum Date of Service: 05/24/24 Procedure(s): XR kne e LT 4V Accession Number(s): [id number] cc: Bradley Bynum; Austin Hughes MD CLINICAL [...] in OV> 05/24/241829 DD/ 28 TD/TT: 05/24/241828 Car Sweeper: Darryl Arriaga Reviewed date:11/05/2024 04:34:59 PM Interpretation: Performing Lab:[facility], [address] [place] [phone] Notes/Report: Darryl Arriaga See Note Specimen held untested for 24 hours; Call to request Chemistry testing. MM tomosynthesis screening B I Reviewed date:03/15/2025 05:12:02 PM Interpretation: Performing Lab: Notes/Report: [facility] [address] [place] [address] Mammography Report Signed Patient: Pankaj Fernandes MR#: [id number] 875 : 1945 Acct:[id number] Age/Sex: 79 / F ADM Date: 03/11/25 Loc: HO.MAMMO Attending Dr: Austin Hughes MD Ordering Physician: Austin Hughes MD Results: 1Ne gative Date of Service: 03/11/25 Follow Up: 1 Year From Orig inal Mammogram Procedure(s): MM tomosynthesis screening BI Accession Number(s): [id number] cc: Austin Hughes MD Reason For Exam: Z12.31 EXAMINATION: MM SCREENING DIGITAL BREAST TOMOSYNTHESIS, BILATERAL CLINICAL INFORMATION: Screening. Asymptomatic. COMPARISON: Mammography: Comparison is made with available priors TECHNIQUE: Digital breast mammography with tomosynthesis is performed in both the craniocaudal and mediolateral oblique views along with computer-aided detection (CAD). FINDINGS: There are scattered areas of fibroglandular density. There are no significant masses, abnormal calcifications, or other abnormalities. MM/MM tomosynthesis screening BI IMPRESSION: No mammographic evidence of malignancy. ASSESSMENT: BI-RADS Category 1: Negative RECOMMENDATION: Routine annual mammography screening. 1 year F/U This examination should not preclude the clinical evaluation of a suspicious palpable abnormality. This patient's information was entered into a reminder system with a target due date for their next mammogram. Electronically signed by: Santa Mccauley DO 03/14/2025 05:02 PM EDT RP Dictated By: Santa Mccauley DO Signed By: <Electronically signed by Santa Mccauley DO in OV> 03/14/25 1702 DD/ 1110 TD/TT: 03/11/25 1130 Car Sweeper: L[facility] [address] [place] [address] Mammography Report Signed Patient: Mukesh Fernandes MR#: [id number] 875 : 1945 Acct:[id number] Age/Sex: 79 / F ADM Date: 03/11/25 Loc: BILLY Attending Dr: Austin Hughes MD Ordering Physician: Austin Hughes MD Results: 1Ne gative Date of Service: Follow Up: 1 Year From Orig inal Mammogram Procedure(s): MM tomosynthesis screening BI Accession Number(s): [id number] cc: Austin Hughes MD Reason For Exam: Z12.31 EXAMINATION: MM SCREENING DIGITAL BREAST TOMOSYNTHESIS, BILATERAL CLINICAL INFORMATION: Screening. Asymptomatic. COMPARISON: Mammography: Compari son is made with available priors TECHNIQUE: Digital breast mammography with tomosynthesis is performed in both the craniocaudal and mediolateral oblique views along with computer-aided detection (CAD). FINDINGS: There are scattered areas of fibroglandular density. There are no signifi cant masses, abnormal calcifications, or other abnormalities. M M/MM tomosynthesis screening BI IMPRESSION: No mammographic evid ence of malignancy. ASSESSMENT: BI-RADS Category 1: Negative RECOMMENDATION: Routine annual mammography screening. 1 year F/U This examination micky uld not preclude the clinical evaluation of a suspicious palpable abnormality. This patient's information was entered into a reminder system with a target due date for their next mammogram. Electronically lindy d by: Santa Mccauley DO 03/14/2025 05:02 PM EDT RP Dictated By: Santa Mccauley DO Signed By: <Electronically signed by Santa Mccauley DO in OV> 03/14/25 1702 DD/ 1110 TD/TT: 03/11/25 1130 Car Sweeper: Darryl Arriaga Reviewed date:05/09/2025 11:58:01 AM Interpretation: Performing Lab:[facility], [address] [place] [phone] Notes/Report: Darryl Arriaga See Note Specimen held [...] pt was given the vaccine at the [facility] in [facility]. Prevnar 13 IM Intramuscular 12/09/2017 Administered TDaP IM Intramuscular 12/30/2017 Administered pt was given the vaccine at [facility] in [place]. Influenza High Dose IM Intramuscular 03/04/2018 Administer ed pt was given the vaccine at [facility] in [place]. Influenza High Dose IM Intramuscular 02/22/2019 Administer ed Influenza High Dose Unknown 02/18/2020 Administered Bradley rida Shingrix Unknown 05/15/2020 Administered Lot [id number]) EXP 06-30-21 VIS 03-17-[facility] [place] Covid Vaccine Unknown 07/07/2020 Administered Moderna Covid Vaccine Unknown 08/04/2020 Administered Moderna Influenza High Dose IM Intramuscular 02/09/2021 Administer ed SARS-COV-2 Moderna Unknown 11/08/2021 Administered Influenza High Dose IM Intramuscular 02/26/2024 Administer ed Flu Vaccine Unknown 02/08/2014 Pending Shingrix Unknown 03/06/2020 Pending Patient had it in [place] Social History Tobacco Use: Social History Observation [...] W/U Status Risk Notes Problem Thyroid nodule (664775904) Thyroid nodule (E04.1) Active confirmed Problem Neutropenia (699893286) Neutropenia (D70.9) Active confirmed Problem 847595154 Essential tremor (G25.0) Active confirmed Problem 865624773 Gastroesophageal reflux disease without esophagitis (K21.9) Active confirmed Problem 27131133 Essential hypertension (I10) Active confirmed Problem 688402492 Environmental allergies (Z91.09) Active confirmed Problem Parkinson disease (83105944) Parkinson disease (G20) Active confirmed Problem Recurrent falls (159363306) Falls frequently (R29.6) Active confirmed Problem 572437954 Osteopenia of sp ine (M85.88) Active confirmed Problem 749233587 H/O: hysterectom y (Z90.710) Active confirmed Problem 01236036 Aortic atherosclerosis (I70.0) Active confirmed Vital Signs Blood pressure diastolic 80 mm Hg 11/11/2024 Height 65 in 11/11/2024 Blood pressure systolic 132 mm Hg 11/11/2024 Weight 132 lbs 11/11/2024 BMI 21.96 kg/m2 11/11/2024 Encounters Encounter Location Date Provider Diagnosis Austin Hughes MD [address] [place] [id number] 11/05/2024 Austin Hughes Blood tests for rout ine general physical examination Z00.00 ; Essential hypertension I10 and Neutropenia D70.9 Austin Hughes MD [address] [place] [id number] 05/09/2025 Austin Hughes Aortic atheroscleros is I70.0 Austin Hughes MD [address] [place] [id number] 11/11/2024 Austin Hughes Annual physical exam Z00.00 ; Knee pain, acute M25.569 ; Essential hypertension I10 ; Colon cancer screening Z12.11 and Depression screening Z13.31 Austin Hughes MD [address] [place] [id number] 05/27/2024 Austin Hughes MD [address] [place] [id number] 05/30/2024 Austin Hughes MD [address] [place] [id number] 07/06/2024 Austin Hughes Essential hypertensi on I10 Austin Hughes MD [address] [place] [id number] 07/12/2024 Austin Hughes Essential hypertensi on I10 Austin Hughes MD [address] [place] [id number] 07/12/2024 Austin Hughes MD [address] [place] [id number] 08/30/2024 Austin Hughes MD [address] [place] [id number] 09/02/2024 Austin Hughes Assessments Encounter Date Diagnosis (ICD Code) Assessment Notes Treatment Notes Treatment Clinical Notes Section Notes 11/05/2024 Blood tests for routine general physical examination (ICD-10 - Z00.00) 05/09/2025 Aortic atherosclerosis (ICD-10 - I70.0) 11/11/2024 Annual physical exam (ICD-10 - Z00.00) [...] DENSITY DEXA 01/03/2021 Next Appt Details Provider Name:uAstin shipley, 05/16/2025 11:00:00 AM, [address] [facility], [address] [facility], [place], [place], [phone], Provider Name:Austin shipley, 11/08/2025 07:45:00 AM, [address] [facility], [address], [place], [place], [phone], Provider Name:Austinjo shipley, 11/15/2025 02:30:00 PM, [address] [facility], [address], [place], [place], [phone], Insurance Providers Payer Name Payer Address Payer Phone Subscriber Number Group Number Insured Name Patient Relationship to Insured Coverage Start Date Coverage End Date [facility] are [employer] [address] [address] [place] [address] [id number] Pankaj Fernandes Self - patient is the insured MEDICARE [employer] [address] [place] [id number] Pankaj Fernandes Self - patient is the [...]
== END 2025-05-09 11:26 | disposition home or self-care (01) ==
LOC: HO.LNP 11:25
PROVIDERS: Visit Provider Internal Medicine
DX: I70.0 Atherosclerosis of aorta (principal)
CPT/HCPCS: 80061; 80076